=== PATIENT | male | born 1955 | race Caucasian/White ===

== ENCOUNTER 2017-07-09 18:29 | Emergency (ER) | payer OTHER, MEDICAID, SELFPAY ==
[2017-07-09 18:30] VITALS: BP 176/100; PULSE 71; RESP 18; TEMP 37; O2SAT 98; BMI 29.8
--- NOTE | 2017-07-09 18:42 | CT_ITS ---
STUDY: CT ABDOMEN AND PELVIS WITHOUT CONTRAST REASON FOR EXAM: Male, 62 years old. Left groin and testicular pain RADIATION DOSAGE (If Supplied By Facility): CTDIvol = ( 18.8 ) mGy, DLP = ( 1269.62 ) mGycm TECHNIQUE: Transaxial images were obtained from the dome of the diaphragm to the symphysis pubis without oral contrast, and without intravenous contrast. Sagittal and coronal images were reconstructed. Individualized dose optimization techniques were used for this CT. COMPARISON: June 09, 2015 FINDINGS: The visualized lung bases are unremarkable. The visualized portions of the heart are within normal limits. Mild nonspecific fatty infiltration of liver without mass or bile duct dilatation Normal gallbladder and extrahepatic biliary system. Normal spleen. Normal pancreas. Normal bilateral adrenal glands. Normal right kidney. Mild left renal pelvocaliectasis with stranding in the perinephric fat and hydroureter secondary to tiny ureteral calculus measuring 2 to 3 mm proximal to the ureterovesical junction. Normal visualized stomach. Normal small intestine. Normal colon. The appendix is visualized and appears normal. Mild atherosclerotic changes of the aorta without evidence for aneurysm. Normal inferior vena cava. Normal retroperitoneum. Incompletely distended diffusely thick-walled bladder likely of no significance. Moderate size bilateral fat-containing inguinal hernias.. Normal osseous structures. CT/Abdomen/Pelvis without Cont IMPRESSION: Mild left hydroureteronephrosis secondary to tiny calculus within the distal ureter just proximal to the ureterovesical junction. Other findings as above Electronically Signed: Reagan Arriola MD at 20:28 EDT , Service support ,
--- NOTE | 2017-07-09 18:55 | ED.DCSUM_ITS ---
- ER Visit Summary Date of Service: 07/09/17 Chief Complaint: Left lower quadrant, testicular pain History of Present Illness: The patient is a 62 M presents to the emergency department with left lower quadrant pain with radiation to his left testicle. Patient states that he woke this morning with some cramping through his abdomen. He felt the urge to move his bowels. He states he had 2 loose bowel movements. Throughout the day, he has been having waves of pain that he describes a sharp and stabbing. He gets very nauseated and sweaty with the pain. He states that this does feel slightly similar to kidney stones had in the past. The pain is been referred into his left testicle and feels like it is on fire. He cannot find a position of comfort. He states that he has had no vomiting. He denies any fever. He has no history of diverticulitis. He has had no prior abdominal surgery. Physical Examination: Vital signs reviewed General: Well-nourished, well-developed Head: Normocephalic, atraumatic Eyes: Pupils equal and reactive, extraocular muscles intact Neck, supple, no lymphadenopathy Heart: Regular rate and rhythm Respiratory: No distress, clear bilaterally Abdomen: Soft, tender in the left lower quadrant with some voluntary guarding, no peritoneal signs exam: Normal testicles. Normal lie. Normal cremasteric. No tenderness. Back: Nontender Extremities: Nontender, no edema, no cords Skin: Normal color no rash Neuro: Alert and oriented, no focal or lateralizing deficits Test Results: [] Emergency Department Course and Treatment: The patient did have some pain in his left lower quadrant. His testicles were normal. It did seem more like a diverticulitis or kidney stone. IV was established. Screening labs were obtained were unremarkable. Morphine really did not change his pain. The patient was given Toradol and Dilaudid with complete resolution. CT does demonstrate a small stone close to the bladder with mild hydro-. On reevaluation, he continues to be pain-free. At this time, I do feel the patient is safe for discharge. He will be given a short course of analgesics and antiemetics. He has seen Dr. Wahl in the past. He will follow-up with him or return to the emergency department with worsening symptoms. Family is comfortable with this plan of care. Treatment Plan: [] Disposition: Discharge Impression: 1. Left-sided urolithiasis This note was generated with [employer] media dictation software. It may contain incorrect words, spelling, and punctuation that were not noted in review of the chart prior to signing ED Disposition - Plan for ED Patient: Chief Complaint: Male Pain/Injury Instructions: ED Stone Renal W Colic Prescriptions: Hydrocodone Bitart/Apap 5-325 [[place] 5/325] 1 tab PO Q4H PRN PRN 3 Days #8 tab PRN Reason: Pain Ondansetron [Zofran Odt] 4 mg PO Q8H PRN PRN #10 tab PRN Reason: Nausea Tamsulosin HCl [Flomax] 0.4 mg PO DAILY 14 Days cap Referrals: Saleem Mac MD [STAFF PHYSICIAN] -
[2017-07-09 18:57] LABS: Absolute Lymphocyte Count 1.41 X10^3/ul (0.83-4.51); Absolute Neutrophil Count 6.7 X10^3/uL (2.0-7.7); Basophil# 0.02 X10^3/uL; Basophil% 0.2 % (0-1); Eosinophil# 0.07 X10^3/uL; Eosinophils% 0.8 % (0-5); Hematocrit 46.2 % (40-54); Hemoglobin 15.6 g/dl (13.0-16.5); Lymphocyte # 1.41 X10^3/ul (4.0); Lymphocyte % 15.8 % (19-41); Mean Corp Hgb Conc 33.8 g/gl (32-36); Mean Corpuscular Hgb 29.7 pg (27.0-32.0); Mean Platelet Vol. 10.6 fl (6.2-12.0); Monocyte# 0.68 X10^3/uL; Monocyte% 7.6 % (0-10); Neutrophil # 6.71 X10^3/uL (2.7-7.7); Neutrophil % 75.5 % (47-70); Platelet Count 213 K/mm3 (150-450); RBC Distribution Width SD 42.1 fl (35.1-43.9); Red Blood Count 5.25 M/mm3 (4.6-6.2); White Blood Count 8.9 K/mm3 (4.4-11.0)
[2017-07-09] MEDS: Ondansetron 4 MG/2 ML Vial IV (18:58)
[2017-07-09] MEDS: 0.9% Normal Saline 1,000 ML 1000 ML IV (18:58)
[2017-07-09] MEDS: Morphine 4 MG/ML Syringe IV (18:58)
[2017-07-09 19:02] LABS: Bacteria 0 SEEN /hpf (None Seen); Mucous, Urine 0 SEEN /hpf (<or=2+); Squamous Epithelial Cells - UA 0 SEEN /hpf (0-5)
[2017-07-09 19:03] LABS: POSITIVE COUNT NO; POSITIVE DIFFERENTIAL NO; POSITIVE MORPHOLOGY NO
[2017-07-09 19:16] LABS: ALB/GLOB Ratio 1.1 RATIO (0.9-2.4); AST(SGOT) 18 U/L (15-37); Alanine Aminotransfer ALT/SGPT 27 U/L (16-61); Albumin, Serum 3.7 g/dL (3.2-5.0); Alkaline Phosphatase 81 U/L (45-117); Anion Gap 13 (5-15); BUN 21 mg/dL (7-18); BUN/Creat Ratio 12.7 RATIO (10-20); Calcium,Total 8.3 mg/dL (8.5-10.1); Chloride 107 mmol/L (98-107); Creatinine, Serum 1.65 mg/dL (0.70-1.30); EST Glomerular Filtration Rate 45 mL/min (>60); Est Glom Filt Rate - Afr Amer 55 mL/min (>60); Estimated Creatinine Clearance 50.95 ml/min; Globulin 3.5 g/dL (2.2-4.2); Glucose 145 mg/dL (74-106); Potassium 3.7 mmol/L (3.5-5.1); Protein, Total 7.2 g/dL (6.4-8.2); Sodium Level 142 mmol/L (136-145)
[2017-07-09 19:22] LABS: Color, Urine Yellow (Yellow); Glucose, Dipstick Normal (Normal); Ketone-Dipstick Negative (Negative); Leukocyte Esterase-Dipstick Negative /ul (Negative); Nitrite-Dipstick Negative (Negative); Occult Blood-Urine 150 /ul (Negative); Protein-Dipstick Negative (Negative); Urine Bilirubin Dipstick Negative (Negative); Urine Clarity Clear (Clear); Urine Urobilinogen Normal (Normal)
[2017-07-09] MEDS: HYDROmorphone 1 MG/ML Syringe IV (19:26)
[2017-07-09] MEDS: Ketorolac 30 MG/ML Syringe IV (19:26)
[2017-07-09 19:30] LABS: Red Blood Cells-Urine 0-5 SEEN /hpf (0-5); White Blood Cells 0-5 SEEN /hpf (0-5)
[2017-07-09] MEDS: HYDROcodone Bitartrate/Apap 5/325 Tablet PO (21:00)
[2017-07-09] MEDS: Ondansetron ODT 4 MG Tablet PO (21:00)
[2017-07-09 21:03] VITALS: BP 148/80; PULSE 74; RESP 16; O2SAT 98
== END 2017-07-09 21:05 | disposition home or self-care (01) ==
LOC: ED 19:18
PROVIDERS: Emergency Provider Emergency Medicine; Family Provider Family Medicine; PCP Family Medicine
DX: N13.2 Hydronephrosis with renal and ureteral calculous obstruction (principal); N50.812 Left testicular pain
CPT/HCPCS: 74176; 74177; 80053; 81001; 85025; 96361; 96374; 96375; 99284; J7030; A4216; J2405

== ENCOUNTER → 2017-11-14 15:54 | Outpatient (CLI) | payer MEDICAID, SELFPAY ==
[2017-11-14 17:54] LABS: ALB/GLOB Ratio 0.9 RATIO (0.9-2.4); AST(SGOT) 19 U/L (15-37); Alanine Aminotransfer ALT/SGPT 31 U/L (16-61); Albumin, Serum 3.7 g/dL (3.2-5.0); Alkaline Phosphatase 83 U/L (45-117); Anion Gap 8 (5-15); BUN 18 mg/dL (7-18); BUN/Creat Ratio 17.8 RATIO (10-20); Calcium,Total 8.7 mg/dL (8.5-10.1); Chloride 106 mmol/L (98-107); Cholesterol 234 mg/dL (200); Creatinine, Serum 1.01 mg/dL (0.70-1.30); EST Glomerular Filtration Rate 79 mL/min (>60); Est Glom Filt Rate - Afr Amer 96 mL/min (>60); Globulin 3.9 g/dL (2.2-4.2); Glucose 98 mg/dL (74-106); High Density Lipoprotein 40 mg/dL; PSA,Total - Annual Screen 1.37 ng/mL (0.00-4.00); Potassium 3.6 mmol/L (3.5-5.1); Protein, Total 7.6 g/dL (6.4-8.2); Sodium Level 141 mmol/L (136-145); Thyroid Stim Hormone (TSH) 1.37 uIU/mL (0.358-3.74); Triglycerides 508 mg/dL
[2017-11-14 17:55] LABS: Absolute Lymphocyte Count 1.72 X10^3/ul (0.83-4.51); Absolute Neutrophil Count 5.3 X10^3/uL (2.0-7.7); Basophil# 0.02 X10^3/uL; Basophil% 0.3 % (0-1); Eosinophil# 0.14 X10^3/uL; Eosinophils% 1.8 % (0-5); Hematocrit 46.7 % (40-54); Hemoglobin 15.1 g/dl (13.0-16.5); Lymphocyte # 1.72 X10^3/ul (4.0); Lymphocyte % 22.3 % (19-41); Mean Corp Hgb Conc 32.3 g/gl (32-36); Mean Corpuscular Hgb 29.5 pg (27.0-32.0); Mean Corpuscular Volume 91.2 fL (80-94); Mean Platelet Vol. 11.3 fl (6.2-12.0); Monocyte# 0.51 X10^3/uL; Monocyte% 6.6 % (0-10); Neutrophil # 5.31 X10^3/uL (2.7-7.7); Neutrophil % 68.9 % (47-70); Platelet Count 227 K/mm3 (150-450); Red Blood Count 5.12 M/mm3 (4.6-6.2); White Blood Count 7.7 K/mm3 (4.4-11.0)
[2017-11-14 18:58] LABS: POSITIVE COUNT NO; POSITIVE DIFFERENTIAL NO; POSITIVE MORPHOLOGY NO
[2017-11-15 03:59] LABS: Rapid Plasmin Reagin (RPR) NONREACTIVE (NONREACTIVE)
[2017-11-15 11:21] LABS: Vitamin B12 503 pg/mL (211-911)
== END ==
PROVIDERS: Family Provider Family Medicine; PCP Family Medicine; Visit Provider Family Medicine
DX: M54.12 Radiculopathy, cervical region (principal); M65.4 Radial styloid tenosynovitis [de Quervain]; R41.3 Other amnesia; Q87.89 Other specified congenital malformation syndromes, not elsewhere classified; G11.9 Hereditary ataxia, unspecified; F79 Unspecified intellectual disabilities; R42 Dizziness and giddiness; N18.3 Chronic kidney disease, stage 3 (moderate); Z12.5 Encounter for screening for malignant neoplasm of prostate
CPT/HCPCS: 36415; 80053; 80061; 82607; 84153; 84443; 85025; 86592; G0103

== ENCOUNTER → 2017-12-06 10:19 | Outpatient (CLI) | payer MEDICAID, SELFPAY ==
[2017-12-06 12:42] LABS: Cholesterol 229 mg/dL (200); High Density Lipoprotein 46 mg/dL; Triglycerides 192 mg/dL; Very Low Density Lipoprotein 38 mg/dL (5-40)
== END ==
PROVIDERS: Family Provider Family Medicine; PCP Family Medicine; Visit Provider Family Medicine
DX: E78.5 Hyperlipidemia, unspecified (principal)
CPT/HCPCS: 36415; 80061

== ENCOUNTER 2018-01-02 18:30 | Outpatient (RCR) | payer MEDICAID, SELFPAY ==
--- NOTE | 2017-11-21 17:44 | HP.PTEVAL_ITS ---
Patient's Visit Information SEUN SANTOS is a 62 year old M referred to Physical Therapy by Roosevelt Henao DO with a diagnosis of radial tenosynovitis and cervical radiculopathy.. Date of Evaluation: 11/21/17 Physical Therapist: Jose Anne DPT, OC - Visit Plan Frequency: 2-3x /Week Duration: 2-4 Weeks Plan: 2-3x/week for 2-4 weeks for: 1. ICT 15 minutes(progress from 16# toward 20#) may use MH also. 2. US nonthermal to L 1st cmc joint. 3. monitor effects of c/s ret/ext HEP on neck pain and ROM and progress as tolerated. - Subjective Subjective: Has bone spurs in neck giving nerve pain in B UE to elbow L>R. Traction helped last time for 9-12 months. Wants to try this before surgery, other therapy did not help. Daily pain as he drives alot. Also jambed thumb monjths ago giving pain into L thumb joint and to elbow. Steroid shots and pills did not help. Living on pills for this. This is started in June.Also has been doing ex and the pain never goes away. Pt says doctor wanted US for thumb. Neck pain to 2-8/10 normally about 4. 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 hard to turn head after work. Has lost 30% of motion. No injections in neck. May be an operation candidate. No exercises and doesn't really have time to do those. Thumb L hurts to 4/10 and shoots up to 7/10 if using it. Hard to pick remover heavy box or squeeze thumb. Sleep is interrupted with neck pain and has been taking ibuprofen. Basic ADLs are OK but painful. Hobbies: no time. - Pain neck pain Pain Intensity (Out of 10): 4 Pain Intensity Range: 2, 8 - Objective Patient ambulates into PT and transfers I. Full UE AROM without pain increased. thumb ext L hurts adn tender to palpation medial 1st CMC joint. grinding is positive. Strength UE 4/5 withotu increased pain. sensation is WNL to gross light touch UE. reflexes 2/3 bi and tri. C/S aROM: ext 25 to start and 45 after repeated ext. B rotation to 40 degrees. very little SB, painfu to try ipsilaterally. flexion is tight. compression test is + L c/s pain.\. - VAT. repeated c/s ret NE. repeated c/s ext produces pain but NE overall except much better by 20 degrees ROM - Goals Goal 1:: 50 B rotation c/s and [address] ext without pain to drive better Goal Time Frame: 4-6 Weeks Goal 2:: Pain in neck 1/10 at worst and intermittent at 90% better. Goal Time Frame: 4-6 Weeks Goal 3:: Thumb pain 1/10 at worst and 75% improved. Goal Time Frame: 4-6 Weeks Goal 4:: Sleep withotu waking at night Goal Time Frame: 4-6 Weeks Goal 5:: Work including lifting without limitations from discomfort. Goal Time Frame: 4-6 Weeks - Rehabilitation Potential Physical Therapy Diagnosis: c/s radiculaopathy, thumb OA Rehabilitation Potential: Fair - Anticipated Interventions Patient/Client Instruction: Educate patient on: Condition For the Purpose of:: To decrease pain, To increase ROM, To improve ability of physical actions for home/community/work/leisure Therapeutic Exercise to Include: Strength training, Flexibilty training, Active ROM, Zeeshan Exercises For the Purpose of:: To decrease pain, To increase ROM, To increase tolerance to activity/condition/position, To improve ability of physical actions for home/ community/work/leisure Thermo therapy (hot pack): Yes Ultrasound (thermal/non thermal): Yes - nontheraml to L 1st CMC Intermittent cervical traction: Yes For the Purpose of:: To decrease pain, To increase ROM, To increase tolerance to activity/condition/position, To improve ability of physical actions for home/ community/work/leisure Thank you for the opportunity to evaluate your patient. For Medicare and Medicare HMO plans, please review the plan of care and approve it. It will need to be FAXED BACK to us at [phone] for Medicare purposes. Please let me know if there are questions or concerns regarding this plan of care. Physician Signature: Date:
--- NOTE | 2017-12-12 19:06 | HP.PTREVAL ---
Roosevelt Henao, DO, It has been my pleasure to treat SEUN SANTOS over the last 6 visits for radial tenosynovitis and cervical radiculopathy.. Please see the progress note below for an update on the physical therapy plan of care! Subjective: Arms felt great after last session, the best they felt. [place] good today 2/10 pain today in [place], down from 4-5/10. Wearing brace on thumb and feeling better as it is not getting knocked around as much. Much better in am. No f/u with doctor. Stilla voids slinging stuff around at work. Wakes up at night but not due to pain. Objective/Function: 45 ext c/s, L rot 45 and 50 R rot. IMPROVING OVERALL AND STILL APPROP. Pt does well with US and improved upon departure. fair prognosis. Plan Plan: CONTINUE 2X/WEEK FOR 2-3 MORE WEEKS... pLEASE US mh AND us TO b iut, stm TO SAME AND START PULLING tb STRENGTH PROGRESSING TO HEP. D/C ICT. Goals Goal 1:: 50 B rotation c/s and [address] ext [address] pain to drive better Goal Time Frame: 4-6 Weeks Goal Progress: Progressing Goal 2:: Pain in neck 1/10 at worst and intermittent at 90% better. Goal Time Frame: 4-6 Weeks Goal Progress: Progressing Goal 3:: Thumb pain 1/10 at worst and 75% improved. Goal Time Frame: 4-6 Weeks Goal Progress: ?? Goal 4:: Sleep withotu waking at night Goal Time Frame: 4-6 Weeks Goal Progress: Not up with pain. Goal 5:: Work including lifting without limitations from discomfort. Goal Time Frame: 4-6 Weeks Goal Progress: Progressing Anticipated Interventions Patient/Client Instruction: Educate patient on: Condition For the Purpose of:: To decrease pain, To increase ROM, To improve ability of physical actions for home/community/work/leisure Therapeutic Exercise to Include: Strength training, Flexibilty training, Active ROM, Zeeshan Exercises For the Purpose of:: To decrease pain, To increase ROM, To increase tolerance to activity/condition/position, To improve ability of physical actions for home/community/work/leisure Thermo therapy (hot pack): Yes Ultrasound (thermal/non thermal): Yes - nontheraml to L 1st CMC Intermittent cervical traction: Yes For the Purpose of:: To decrease pain, To increase ROM, To increase tolerance to activity/condition/position, To improve ability of physical actions for home/community/work/leisure Please do not hesitate to contact me at [phone] by phone or if you have questions or concerns regarding this new plan of care! Sincerely, Jose Anne, DPT, OC
--- NOTE | 2018-01-02 19:04 | HP.PTDCSUM ---
HP - PT D/C Summary It has been my pleasure to treat SEUN SANTOS under orders from Roosevelt Henao DO, for the diagnosis of radial tenosynovitis and cervical radiculopathy. for a total of 10 visit(s). Discharge Date: 01/02/18 Please see the following information for a summary of their discharge status. - Subjective Subjective: Not sure if we are getting anywhere, US helps but not permanently. Back to pain a couple days later. Been doing HEP initial 3-4x/day. Doing isometrics for c/s and rotation and ret ROM. They hurt to do them. Hard to get into PT with work schedule but might have more latitude next week. - Pain neck pain Pain Intensity (Out of 10): 6 LEFT THUMB Pain Intensity (Out of 10): 7 - Overall Improvement % Improvement: 20 - Objective Objective/Function: 45 L rot. 55 R rot. 45 ext. not painful, not improving motion. Thumb still hurts bad and is not improving, worse with thumb extension btu decent strength4/5. Neck isometric strength is 4/5 withotu increased pain. UE AROM shoulders and elbows WFL and 4+/5 - Goals Goal 1:: 50 B rotation c/s and [address] ext [address] pain to drive better Goal Progress: Not Progressing Goal 2:: Pain in neck 1/10 at worst and intermittent at 90% better. Goal Progress: Not Progressing Goal 3:: Thumb pain 1/10 at worst and 75% improved. Goal Progress: Not Progressing Goal 4:: Sleep withotu waking at night Goal Progress: Progressing Goal 5:: Work including lifting without limitations from discomfort. Goal Progress: Not Progressing - Plan Plan: Pt to contact doctor for appt due to lack of progress. - D/C Information Discharge Comments: Lack of acceptable improvement necessitates patient calling and scheduling with doctor for next medical step. If there are questions or concerns regarding this patient's physical therapy, please feel free to call me at [phone]. Thank you for the referral of this patient. Sincerely, Jose Anne, DPT, OC
== END 2018-01-02 19:00 | disposition home or self-care (01) ==
LOC: PT 18:30
PROVIDERS: Family Provider Family Medicine; PCP Family Medicine; Visit Provider Family Medicine
DX: M54.12 Radiculopathy, cervical region (principal); M65.4 Radial styloid tenosynovitis [de Quervain]
CPT/HCPCS: 97012; 97035; 97110; 97140; 97162; 97530

== ENCOUNTER → 2018-01-22 10:11 | Outpatient (CLI) | payer MEDICAID, SELFPAY ==
[2018-01-22 12:14] LABS: Erythrocyte Sedimentation Rate 7 mm/hr (0-20)
[2018-01-22 13:08] LABS: CRP < 2.90 mg/L (0.0-3.0); Rheumatoid Factor < 10.0 IU/mL (<15)
[2018-01-24 12:33] LABS: CCP IgG Antibodies 28 units (0-19)
== END ==
PROVIDERS: Family Provider Family Medicine; PCP Family Medicine; Visit Provider Family Medicine
DX: M25.50 Pain in unspecified joint (principal); M15.9 Polyosteoarthritis, unspecified
CPT/HCPCS: 36415; 85652; 86140; 86200; 86431

== ENCOUNTER 2018-08-14 21:43 | Emergency (ER) | payer MEDICAID, SELFPAY ==
[2018-08-14 21:44] VITALS: BP 158/85; PULSE 64; RESP 18; TEMP 36.1; O2SAT 96; BMI 31.6
--- NOTE | 2018-08-14 22:36 | ED.VISSUMM ---
- ER Visit Summary Date of Service: 08/14/18 Chief Complaint: Headache History of Present Illness: The patient is a 63 M who tells me he is got a headache. He states he had 2 root canals done this week. He went back in today and they drilled into his tooth and he had purulent material come out. He was placed on Augmentin but no pain medications. He has been trying Tylenol at home without any relief. He does not usually get headaches. Physical Examination: Vital signs are reviewed. Head exam reveals tenderness on the right mandible up into the right preauricular area. He has no temporal artery tenderness. Mouth exam reveals no purulent drainage at this time. His heart is regular. Lungs are clear. Abdomen soft. Neurologic exam normal Test Results: None performed Emergency Department Course and Treatment: Patient presents after a dental procedure. This is causing a headache. I do not feel he requires any imaging. I will give him a shot of Toradol here since he is driving. I will give him Stuart for pain at home. He will continue his Augmentin as I do not think this is causing his issues. He will follow-up with his PCP Treatment Plan: [] Disposition: Discharge Impression: Odontalgia, headache This note was generated with [employer] dictation software. It may contain incorrect words, spelling, and punctuation that were not noted in review of the chart prior to signing ED Disposition - Plan for ED Patient: Referrals: Roosevelt Henao DO [Primary Care Provider] -
--- NOTE | 2018-08-14 22:39 | ED.DEP ---
ED Disposition - Plan for ED Patient: Disposition: Home or Assisted Living Instructions: ED Cephalgia Unspecified Prescriptions: Hydrocodone Bitart/Apap 5-325 [[place] 5MG-325MG] 1 tab PO Q6H PRN PRN 3 Days #10 tab PRN Reason: Pain Referrals: Roosevelt Henao DO [Primary Care Provider] -
[2018-08-14] MEDS: Ketorolac 60 MG/2 ML Vial IM (22:42)
[2018-08-14 23:02] VITALS: BP 142/61; PULSE 64; RESP 18; O2SAT 99
== END 2018-08-14 23:03 | disposition home or self-care (01) ==
PROVIDERS: Emergency Provider Emergency Medicine; Family Provider Family Medicine; PCP Family Medicine
DX: K08.89 Other specified disorders of teeth and supporting structures (principal); R51 Headache; M19.90 Unspecified osteoarthritis, unspecified site; Z79.899 Other long term (current) drug therapy
CPT/HCPCS: 96372; 99282

== ENCOUNTER → 2018-10-06 16:02 | Outpatient (CLI) | payer MEDICAID, SELFPAY ==
--- NOTE | 2018-10-06 16:06 | RAD_ITS ---
STUDY: X-RAY - LEFT HAND, ATTENTION FIRST FINGER REASON FOR EXAM: Male, 63 years old. Weakness TECHNIQUE: 3 view(s) of the finger were obtained. COMPARISON: None. FINDINGS: Normal metacarpal head. There is mild degenerative arthrosis of the metacarpophalangeal joint. Normal proximal phalanx. Normal distal phalanx. There is mild degenerative arthrosis of the interphalangeal joint. There is no demonstrated fracture. RAD/Finger(s) Min 2 Views IMPRESSION: No acute fracture or dislocation. Mild degenerative changes. Electronically Signed: Dimitrios Leblanc MD at 23:03 EDT , Service support ,
--- NOTE | 2018-10-06 16:06 | RAD_ITS ---
STUDY: X-RAY - ABDOMEN/PELVIS REASON FOR EXAM: Male, 63 years old. Left lower quadrant pain TECHNIQUE: Single AP view of the abdomen / pelvis. COMPARISON: None. FINDINGS: Normal visualized lung bases. There is an unremarkable bowel gas pattern. There is no demonstrated free abdominal air. The visualized liver, spleen and kidneys are grossly normal in size and morphology. Normal soft tissue structures. Normal visualized osseous structures. RAD/Abdomen Single View IMPRESSION: Normal x-ray examination of the abdomen and pelvis. Electronically Signed: Dimitrios Leblanc MD at 23:01 EDT , Service support ,
[2018-10-06 18:04] LABS: CRP < 2.90 mg/L (0.0-3.0); Rheumatoid Factor < 10.0 IU/mL (<15)
[2018-10-06 18:18] LABS: Absolute Lymphocyte Count 1.67 X10^3/ul (0.83-4.51); Absolute Neutrophil Count 4.5 X10^3/uL (2.0-7.7); Basophil# 0.04 X10^3/uL; Basophil% 0.6 % (0-1); Eosinophil# 0.14 X10^3/uL; Hematocrit 48.4 % (40-54); Hemoglobin 16.2 g/dl (13.0-16.5); Lymphocyte # 1.67 X10^3/ul (4.0); Lymphocyte % 24.5 % (19-41); Mean Corp Hgb Conc 33.5 g/gl (32-36); Mean Corpuscular Hgb 29.2 pg (27.0-32.0); Mean Corpuscular Volume 87.4 fL (80-94); Mean Platelet Vol. 11.3 fl (6.2-12.0); Monocyte# 0.49 X10^3/uL; Monocyte% 7.2 % (0-10); Neutrophil # 4.47 X10^3/uL (2.7-7.7); Neutrophil % 65.4 % (47-70); Platelet Count 244 K/mm3 (150-450); RBC Distribution Width CV 12.7 % (11.6-14.6); RBC Distribution Width SD 40.6 fl (35.1-43.9); Red Blood Count 5.54 M/mm3 (4.6-6.2); White Blood Count 6.8 K/mm3 (4.4-11.0)
[2018-10-06 18:29] LABS: POSITIVE COUNT NO; POSITIVE DIFFERENTIAL NO; POSITIVE MORPHOLOGY NO
[2018-10-06 18:35] LABS: Erythrocyte Sedimentation Rate 5 mm/hr (0-20)
[2018-10-08 14:39] LABS: ANTINUCLEAR ANTIBODIES DIRECT Negative (Negative)
[2018-10-09 11:49] LABS: CCP IgG Antibodies 17 units (0-19)
== END ==
PROVIDERS: Family Provider Family Medicine; PCP Family Medicine; Referring Provider Family Medicine; Visit Provider Family Medicine
DX: M25.50 Pain in unspecified joint (principal); R53.83 Other fatigue; M79.645 Pain in left finger(s); R10.9 Unspecified abdominal pain
CPT/HCPCS: 36415; 73140; 74018; 85025; 85652; 86038; 86140; 86200; 86225; 86235; 86431

== ENCOUNTER → 2019-02-12 05:58 | Outpatient (CLI) | payer MEDICAID, SELFPAY ==
--- NOTE | 2019-02-12 15:56 | NEURO ---
NCS and/or EMG Patient Report HPI: Patient is a 63-year-old male who presented with the numbness and tingling in both feet for 6 months. Patient denies back injury. Patient has tripped due to lack of feeling in his toes. He denies being diabetic and does not drink alcohol. Patient feels that his feet are burning when he goes to bed. Physical Exam: Mild bilateral ankle tenderness. Decreased sensation to light touch in the distal foot and ankle area on both sides. Findings: 1. Right and left medial plantar nerves responses are absent. 2. There is slowing of right and left peroneal nerve conduction velocity. 3. There is slowing of the left tibial nerve conduction velocity with decreased amplitude of proximal CMAP of left tibial motor nerve resposne. Impression: 1. 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 Recommendation: 1. clinical correlation and appropriate work-up is recommended.
== END ==
PROVIDERS: Family Provider Family Medicine; PCP Family Medicine; Referring Provider Family Medicine; Visit Provider Family Medicine
DX: G62.9 Polyneuropathy, unspecified (principal)
CPT/HCPCS: 95886; 95912

== ENCOUNTER → 2019-03-31 09:35 | Outpatient (CLI) | payer MEDICAID, SELFPAY ==
[2019-04-01 21:05] LABS: HCV Quant. RNA PCR <15 IU/mL (.)
== END ==
PROVIDERS: Family Provider Family Medicine; PCP Family Medicine; Visit Provider Family Medicine
DX: R76.8 Other specified abnormal immunological findings in serum (principal)
CPT/HCPCS: 36415; 87522

== ENCOUNTER → 2019-04-30 08:58 | Outpatient (CLI) | payer MEDICAID, SELFPAY ==
--- NOTE | 2019-04-30 09:05 | MRI_ITS ---
STUDY: MRI LUMBAR SPINE WITH AND WITHOUT CONTRAST REASON FOR EXAM: Male, 63 years old. myelitis, numbness and tingling from feet to calf bilat TECHNIQUE: Standardized fat and water weighted pulse sequences were obtained in the sagittal and axial planes. IV Dotarem 20ml was administered for the contrast portion of the examination. COMPARISON: None FINDINGS: Normal lumbar lordosis. There is no substantial scoliosis. Normal conus medullaris that terminates at the T12 L1-2: Normal endplates. Normal disc height, hydration and morphology. Normal bilateral facet joints. Normal central canal and bilateral lateral recesses. Normal bilateral intervertebral neural foramina. L2-3: There is minimal disc space narrowing and endplate spondylosis. There is no significant disc herniation, central canal or foraminal stenosis. L3-4: There is mild disc space narrowing and endplates spondylosis. Mild disc bulge and facet arthropathy without significant central canal stenosis. Mild right and mild left foraminal stenosis. L4-5: There is minimal disc space narrowing and endplate spondylosis. There is no significant disc herniation, central canal or foraminal stenosis. Mild facet arthropathy L5-S1: There is minimal disc space narrowing and endplate spondylosis. Moderate facet arthropathy with minimal anterolisthesis without significant central canal stenosis. There is mild right and mild left foraminal stenosis. There is spondylolysis. There is minimal grade 1 anterolisthesis. Normal visualized sacral ala. MRI/Spine Lumbar W/WO Contrast IMPRESSION: L5/S1: Spondylolysis with minimal anterolisthesis. Electronically Signed: Janel Bedolla MD at 10:04 EST Tel , Service support ,
--- NOTE | 2019-04-30 09:05 | MRI_ITS ---
We are attempting to reach an attending provider to discuss findings. An addendum with communication details will be sent when the communication is complete. STUDY: MRI THORACIC SPINE WITH AND WITHOUT CONTRAST REASON FOR EXAM: Male, 63 years old. myelitis, N/T from bilat feet up to calf x 6months TECHNIQUE: IV cc was administered for the contrast portion of the examination. COMPARISON: None. FINDINGS: Normal kyphosis of the thoracic spine. There is no substantial scoliosis. T1-2, T2-3, T3-4, T4-5, T5-6, T6-7, T7-8, T8-9, T9-10, T10-11, T11-12: There is mild diffuse disc space narrowing and endplate spondylosis T9/T12, there is small left paracentral protrusion with moderate left lateral recess narrowing. T2/T3, there is dorsal mass effect and anterior displacement of the spinal cord (axial image #42 is series 7 with minimal increased cord signal. There is no abnormal enhancement. The soft tissue structures are unremarkable. There is no enhancing abnormality. 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 Leading differential considerations include spinal cord herniation and arachnoid cyst. T9/T12: Small left paracentral protrusion with moderate left lateral recess narrowing. Electronically Signed: Janel Bedolla MD at 11:24 EST Tel , Service support ,
[2019-04-30 09:26] LABS: EGFR FINGERSTICK > 60.0000 mL/min (>60)
== END ==
PROVIDERS: PCP Family Medicine; Referring Provider Psychiatry & Neurology Neurology; Visit Provider Psychiatry & Neurology Neurology
DX: G04.91 Myelitis, unspecified (principal)
CPT/HCPCS: 72157; 72158; A9575

== ENCOUNTER 2019-05-23 18:34 | Emergency (ER) | payer MEDICAID, SELFPAY ==
[2019-05-23 18:34] VITALS: BP 163/95; PULSE 78; RESP 18; TEMP 36.1; O2SAT 96; BMI 32.1
--- NOTE | 2019-05-23 19:06 | ED.VISSUMM ---
- ER Visit Summary Date of Service: 05/23/19 Chief Complaint: Rash History of Present Illness: The patient is a [address] Henao. He reports that he has a rash on the left side of his face that began today. However, he has pain in the ear that began 5 days ago. States that sharp pain is 10-10 at worst and 7-10 currently. Is worsened by touching it or showering. Is relieved by nothing. Reports he has a headache that is 9-10 severity. Does complain of arthralgias and myalgias. He denies a fever. He denies any eye pain or change in his vision. He denies any ear pain. Physical Examination: Vitals: Stable. Afebrile. General: Well-nourished and well-developed. Head: Normocephalic atraumatic. Neck: Supple, no lymphadenopathy. No JVD. Nontender. Cardiovascular: Regular rate and rhythm. No murmurs. Respiratory: No respiratory distress. Clear to auscultation bilaterally. Abdominal: Soft, nontender, nondistended, normal bowel sounds. No guarding, rebound, or peritoneal signs. Back: Nontender. Extremities: Nontender, no edema. Skin: Vesicular lesions in a cranial nerve V branch 3 distribution on the left. There is no Thornton sign. There is no conjunctival injection. There are are no lesions in his external auditory canal and his TMs are normal. Neurologic: Alert and oriented ?3. Cranial nerves II through XII are intact. Normal strength and sensation. Psych: Normal affect. Emergency Department Course and Treatment: Patient had an IV placed. Is given morphine and Toradol IV. He is given acyclovir p.o. He is resting comfortably. Treatment Plan: Patient be discharged on prednisone, acyclovir, and Percocet. Given a prescription for lidocaine jelly. Instructed to follow-up his primary care physician 1 week if not improving. We did discuss the risk of postherpetic neuralgia. He was instructed to watch for any pain or redness in his eye.Return to the emergency department for any worsening symptoms. Disposition: To home in improved and stable condition. Impression: 1. Herpes zoster left face. This note was generated with [employer] dictation software. It may contain incorrect words, spelling, and punctuation that were not noted in review of the chart prior to signing ED Disposition - Plan for ED Patient: Disposition: Home or Assisted Living Instructions: Shingles (Herpes Zoster) Prescriptions: Oxycodone HCl/Acetaminophen [Percocet 5/325] 1 tab PO Q6H PRN PRN 5 Days #20 tab PRN Reason: Pain Score 6-10/10 Prescription Printed Prednisone 10 mg PO DAILY #63 tab Prescription Printed Valacyclovir HCl [Valacyclovir] 1,000 mg PO TID #21 tab Prescription Printed Lidocaine 2% Jelly [Xylocaine 2% Jelly] 1 applic TOPICAL Q6H PRN PRN #1 tube PRN Reason: Itching Prescription Printed Referrals: Roosevelt Henao DO [Primary Care Provider] - 1 Week if not improving
[2019-05-23] MEDS: Ketorolac 30 MG/ML Syringe IV (19:24)
[2019-05-23] MEDS: Morphine 4 MG/ML Syringe IV (19:25)
[2019-05-23] MEDS: predniSONE 20 MG Tablet 60 MG PO (19:26)
[2019-05-23] MEDS: Acyclovir 800 MG Tablet PO (19:26)
[2019-05-23] MEDS: 0.9% Normal Saline 1,000 ML 999 ML IV (19:27)
[2019-05-23 20:11] VITALS: BP 125/80; PULSE 88; RESP 16; O2SAT 99
== END 2019-05-23 20:40 | disposition home or self-care (01) ==
LOC: ED 19:06
PROVIDERS: Emergency Provider Emergency Medicine; PCP Family Medicine
DX: B02.9 Zoster without complications (principal); Z79.899 Other long term (current) drug therapy
CPT/HCPCS: 96361; 96374; 96375; 99284; J7030; A4216

== ENCOUNTER 2019-06-01 17:53 | Emergency (ER) | payer MEDICAID, SELFPAY ==
[2019-06-01 17:54] VITALS: BP 161/92; PULSE 76; RESP 18; TEMP 36.1; O2SAT 96; BMI 32.1
--- NOTE | 2019-06-01 18:05 | EKG12_ITS ---
Test Reason : Blood Pressure : / mmHG Vent. Rate : 075 BPM Atrial Rate : 075 BPM P-R Int : 162 ms QRS Dur : 090 ms QT Int : 384 ms P-R-T Axes : 033 -39 045 degrees QTc Int : 428 ms Normal sinus rhythm Left axis deviation Poor R- wave progression Abnormal ECG Confirmed by JAMILA LEW, FLORENCIO ([id number]), content editor NAWAF DON ([id number]) on 06/02/2019 1:44:53 PM Referred By: LAWANDA Confirmed By:FLORENCIO MARINO MD
--- NOTE | 2019-06-01 18:06 | CT_ITS ---
STUDY: CTA HEAD AND NECK WITH CONTRAST REASON FOR EXAM: Male, 63 years old. SLURRED SPEECH, DOESN''T FEEL RIGHT, NEURO DEFICITS RADIATION DOSAGE (If Supplied By Facility): CTDIvol = ( 28.37 ) mGy, DLP = ( 1591.99 ) mGycm TECHNIQUE: CT angiography was performed with a multi-detector CT scanner. Data acquisition was obtained from the skull base through the vertex following intravenous administration of 100 CC ISOVUE 370. MIP images were reconstructed from the axial data set. Post-processing of the angiographic images was performed, with multiplanar reformation and 3D reconstruction. Individualized dose optimization techniques were used for this CT. COMPARISON: No relevant priors. FINDINGS: CT head without contrast: No intracranial mass, hemorrhage, or acute territorial infarct. Normal bilateral petrous carotid arteries. Normal right cavernous carotid artery with a normal supraclinoid bifurcation. Normal left cavernous carotid artery with a normal supraclinoid bifurcation. Normal right A1 segments of the anterior cerebral artery. Normal left A1 segments of the anterior cerebral artery. Normal intact anterior communicating artery (ACOM). Normal bilateral A2 segments of the anterior cerebral arteries. Normal right M1 and M2 segments of the middle cerebral arteries, with a normal M1 bifurcation. Normal left M1 and M2 segments of the middle cerebral arteries, with a normal M1 bifurcation. Posterior communicating arteries are nonvisualized. Normal bilateral vertebral arteries. Normal basilar artery with a normal basilar bifurcation. The visualized bilateral superior cerebellar (SCA) arteries are normal. Normal bilateral P1, P2 and visualized P3 segments of the posterior cerebral arteries. There is no demonstrated aneurysm of the [place]. There is no demonstrated abnormality of the visualized brain. AORTIC ARCH: Normal visualized aortic arch. Normal origins of the brachiocephalic, left common carotid, and left subclavian arteries. RIGHT CAROTID ARTERIES: Normal right common carotid artery (CCA). Normal right common carotid bulb. Normal origin of the right internal carotid (ICA) artery without stenosis. Normal visualized cervical portion of the right internal carotid artery. Normal origin of the right external carotid artery (ECA). LEFT CAROTID ARTERIES: Normal left common carotid artery (CCA). Normal left common carotid bulb. Normal origin of the left internal carotid (ICA) artery without stenosis. Normal visualized cervical portion of the left internal carotid artery. Normal origin of the left external carotid artery (ECA). VERTEBRAL ARTERIES: Normal bilateral vertebral arteries. CT/CTA Head AND Neck W/ Contrast IMPRESSION: Normal CTA Head and neck with contrast. Electronically Signed: Moni English MD at 20:02 EDT Tel , Service support ,
--- NOTE | 2019-06-01 18:07 | ED.VIS.GEN ---
History of Present Illness Chief Complaint: Neuro S/Sx Informant: Patient Onset: Today Context: Gradual Onset Timing: Continuous Current Severity: Moderate Maximum Severity: Moderate Narrative: The patient is a 63-year-old male with medical history significant for anxiety and recent diagnosis of shingles that presents to the emergency department with complaints of slurred speech and diffuse tingling. The patient just returned to work today. He was diagnosed with shingles a few days ago. He has been on valacyclovir, prednisone, and analgesics. He states when he was at work, he just does not feel himself. He states he felt like he was having trouble getting his words out. He states it lasted most of the day. He states now, he felt back to normal but will still have some difficulty with the speech. He states that he has no trouble with fluency of speech, just feels like his tongue is thick. He states that his rash has been markedly improved. When he was at work, he also had numbness of all his extremities but was not sure if that was because of his anxiety. He has no history of hypertension, hyperlipidemia, or diabetes. He is currently undergoing neurologic work-up for bilateral lower extremity numbness. Prior similar symptoms: No Recent Illness/Hospitalization: Yes Past Medical History - Allergies and Home Meds Allergies/Adverse Reactions: Allergies No Known Allergies Allergy (Verified 06/01/19 17:57) Primary Care Physician: Roosevelt Henao DO [Primary Care Provider] - Prior records reviewed: Yes Past Medical History: - - Anxiety disorder Surgical History: - Smoking Status: Never smoker - Family History Maternal Family History: Reports: Unknown, No pertinent history Review of Systems General: Denies: Chills, Fever, Sweats Eyes: Denies: Visual changes - bilaterally, Diplopia ENT: Denies: Rhinorrhea, Sore throat Cardiovascular: Denies: Chest pain, Palpitations Respiratory: Denies: Dyspnea, Cough, Dyspnea on exertion Gastrointestinal: Denies: Abdominal pain, Nausea, Vomiting, Diarrhea, Melena, Hematochezia Genitourinary: Denies: Dysuria, Hematuria, Frequency Musculoskeletal: Denies: Back pain, Extremity Pain Skin: Denies: Rash, Wounds Neurological: Reports: Parasthesia. Denies: Headache, Weakness, Numbness Physical Exam Vital Signs/Narrative: Vital Signs Temp Pulse Resp BP Pulse Ox 06/01/19 17:54 96.9 F L 76 18 161/92 H 96 Inital Vital Signs reviewed: Yes General: Well nourished, Well developed, No Acute Distress Head: Normocephalic, Atraumatic, - - Patient has well-healing vesicles over the left face. No cellulitis Eyes: Perrl, EOMI ENT: Moist mucous membranes, No rhinorrhea Neck: Supple, Nontender Cardiovascular: Regular rate, Regular rhythm, No murmurs Respiratory: No distress, CTA bilaterally, Chest nontender Abdomen: Soft, Nontender, Nondistended, Normal bowel sounds Back: Nontender, Normal Inspection Extremities: Nontender, No edema Skin: Normal color, No rash Neurological: Alert, Oriented x3, Cranial nerves II-XII grossly intact, Normal Strength, Normal Sensation Psychological: Normal affect, Normal Mood Diagnostic/Tx/Re-eval Clinical Impression(s) from Imaging Studies Head/Neck CTA 06/01/19 18:06 IMPRESSION: Normal CTA Head and neck with contrast. Electronically Signed: Moni Enlgish MD at 20:02 EDT Tel , Service support , Chest X-Ray 06/01/19 18:17 IMPRESSION: Normal x-ray examination of the chest. Electronically Signed: Moni English MD at 19:38 EDT Tel , Service support , - Medical Decision Making Abnormal Lab Results 06/01/19 06/01/19 06/01/19 18:20 18:20 18:20 WBC 15.0 H RBC 5.56 Hgb 16.4 Hct 49.6 MCV 89.2 MCH 29.5 MCHC 33.1 RDW Std Deviation 42.7 RDW Coeff of Pascale 13.1 Plt Count 264 MPV 10.1 Immature Gran % (Auto) 2.200 H Neut % (Auto) 85.9 H Lymph % (Auto) 6.6 L [place] % (Auto) 5.0 Eos % (Auto) 0.0 Baso % (Auto) 0.3 Absolute Neuts (auto) 12.9 H Absolute Lymphs (auto) 0.99 Nucleated RBC % 0 PT 12.7 INR 1.0 APTT 22.6 L Sodium 141 Potassium 3.9 Chloride 109 H Carbon Dioxide 24.0 Anion Gap 8 BUN 26 H Creatinine 1.06 Estim Creat Clear Calc 78.29 Est GFR (MDRD) Af Amer 91 Est GFR (MDRD) Non-Af 75 BUN/Creatinine Ratio 24.5 H Glucose 136 H Calcium 8.7 Troponin I < 0.015 POC Glucose 06/01/19 19:07 WBC RBC Hgb Hct MCV MCH MCHC RDW Std Deviation RDW Coeff of Pascale Plt Count MPV Immature Gran % (Auto) Neut % (Auto) Lymph % (Auto) [place] % (Auto) Eos % (Auto) Baso % (Auto) Absolute Neuts (auto) Absolute Lymphs (auto) Nucleated RBC % PT INR APTT Sodium Potassium Chloride Carbon Dioxide Anion Gap BUN Creatinine Estim Creat Clear Calc Est GFR (MDRD) Af Amer Est GFR (MDRD) Non-Af BUN/Creatinine Ratio Glucose Calcium Troponin I POC Glucose 109 The patient presents with neck speech and paresthesias of his upper extremities. His NIH on arrival is 0. He really has no risk factor for stroke. He states that he felt very anxious going back to work. However, given his recent illness, I did feel that metabolic work-up was appropriate. EKG was obtained which showed sinus rhythm without acute ischemia. Screening labs were obtained were unremarkable. Patient underwent CTA which shows no evidence of dissection, acute cutoff, or vascular disease. At this time, given his lack of symptoms and the fact that were nonfocal, I do not suspect acute stroke to be the cause of his symptoms. The patient has had no progression of symptoms. He has had no further difficulty with speech. At this point, I do feel that he safe for outpatient follow-up and he is scheduled to get MRI within 2 days. I feel that this is reasonable. Impression 1. Reported dysarthria-resolved . Paresthesias ED Disposition - Plan for ED Patient: Instructions: Paraesthesias Referrals: Roosevelt Henao DO [Primary Care Provider] -
--- NOTE | 2019-06-01 18:17 | RAD_ITS ---
STUDY: X-RAY CHEST REASON FOR EXAM: Male, 63 years old. PT REPORTS SLURRED SPEECH SINCE 0800 WITH HAND TREMORS. TECHNIQUE: Portable chest. COMPARISON: 03/05/2014. FINDINGS: The lungs are clear and expanded. There is no demonstrated pleural abnormality. Normal size heart. Normal mediastinum and say. Normal visualized pulmonary arteries. Normal visualized aortic arch and descending thoracic aorta. Normal visualized thoracic spine. Normal visualized ribs, clavicles, and shoulders. There is no demonstrated abnormality of the visualized soft tissue structures of the upper abdomen. RAD/Chest 1 View IMPRESSION: Normal x-ray examination of the chest. Electronically Signed: Moni English MD at 19:38 EDT Tel , Service support ,
[2019-06-01 18:25] VITALS: BP 191/107; PULSE 74; RESP 17; O2SAT 97
[2019-06-01 18:26] LABS: Absolute Lymphocyte Count 0.99 X10^3/uL (0.83-4.51); Absolute Neutrophil Count 12.9 X10^3/uL (2.0-7.7); Basophil# 0.04 X10^3/uL; Basophil% 0.3 % (0-1); Hematocrit 49.6 % (40-54); Hemoglobin 16.4 g/dL (13.0-16.5); Lymphocyte # 0.99 X10^3/ul (4.0); Lymphocyte % 6.6 % (19-41); Mean Corp Hgb Conc 33.1 g/dL (32-36); Mean Corpuscular Hgb 29.5 pg (27.0-32.0); Mean Corpuscular Volume 89.2 fL (80-94); Mean Platelet Vol. 10.1 fl (6.2-12.0); Monocyte# 0.75 X10^3/uL; NRBC Flagged by Analyzer 0 % (0-5); Neutrophil # 12.88 X10^3/uL (2.7-7.7); Neutrophil % 85.9 % (47-70); Platelet Count 264 K/mm3 (150-450); RBC Distribution Width CV 13.1 % (11.6-14.6); RBC Distribution Width SD 42.7 fl (35.1-43.9); Red Blood Count 5.56 M/mm3 (4.6-6.2)
[2019-06-01] MEDS: 0.9% Normal Saline 1,000 ML 100 ML IV (18:27)
[2019-06-01 18:34] LABS: Partial Thromboplast Time 22.6 Seconds (24.1-36.2); Prothrombin Time (Protime)PT. 12.7 SECONDS (11.7-14.9)
[2019-06-01 18:43] LABS: Anion Gap 8 (5-15); BUN 26 mg/dL (7-18); BUN/Creat Ratio 24.5 RATIO (10-20); Calcium,Total 8.7 mg/dL (8.5-10.1); Chloride 109 mmol/L (98-107); Creatinine, Serum 1.06 mg/dL (0.70-1.30); EST Glomerular Filtration Rate 75 mL/min (>60); Est Glom Filt Rate - Afr Amer 91 mL/min (>60); Estimated Creatinine Clearance 78.29 ml/min; Glucose 136 mg/dL (74-106); Potassium 3.9 mmol/L (3.5-5.1); Sodium Level 141 mmol/L (136-145)
[2019-06-01 19:01] VITALS: BP 187/102; PULSE 77; PULSE 79; RESP 16; RESP 18; O2SAT 98
[2019-06-01 19:18] VITALS: BMI 32.1
[2019-06-01 19:30] LABS: Bedside Glucose 109 mg/dL (70-110)
[2019-06-01 20:20] VITALS: BP 169/97; PULSE 69; RESP 12; O2SAT 95
== END 2019-06-01 20:23 | disposition home or self-care (01) ==
LOC: ED 18:27
PROVIDERS: Emergency Provider Emergency Medicine; PCP Family Medicine
DX: R47.1 Dysarthria and anarthria (principal); R47.81 Slurred speech; R20.2 Paresthesia of skin; F41.9 Anxiety disorder, unspecified; Z79.899 Other long term (current) drug therapy
CPT/HCPCS: 70496; 70498; 71045; 80048; 82962; 84484; 85025; 85610; 85730; 93005; 96360; 96361; 99284; J7030; Q9967; A4216

== ENCOUNTER → 2019-06-04 06:31 | Outpatient (CLI) | payer MEDICAID, SELFPAY ==
[2019-06-01 19:18] VITALS: BMI 32.1
--- NOTE | 2019-06-04 06:37 | MRI_ITS ---
STUDY: MRI CERVICAL SPINE WITH AND WITHOUT CONTRAST REASON FOR EXAM: Male, 63 years old. arachnoid cyst, F/U TO MRI THORACIC SPINE, N/T LEGS TECHNIQUE: Standardized fat and water weighted pulse sequences were obtained in the sagittal and axial following administration of IV Dotarem 20ml. COMPARISON: X-ray 05/09/2016, MRI of the thoracic spine to FINDINGS: Normal foramen magnum and brainstem-cervical cord junction. Normal craniovertebral junction. Normal anterior atlantoaxial articulation. Normal odontoid process. Normal cervical lordosis. Normal vertebral bodies and posterior osseous elements. C2-3: Normal endplates. Normal disc height, signal and morphology. Normal central canal and intervertebral neural foramina. C3-4: Normal endplates. Normal disc height, signal and morphology. Normal central canal and intervertebral neural foramina. C4-5: Mild bilobed disc osteophyte complex and bilateral carotid joint hypertrophy produces mild spinal stenosis and mild bilateral neural foraminal stenosis. C5-6: Moderate sized left paracentral and preforaminal disc osteophyte complex and left uncovertebral hypertrophy and mild left facet hypertrophy produces mild spinal stenosis with near abutment of the left hemicord and mild left neural foraminal stenosis. C6-7: Moderate broad disc osteophyte complex asymmetric to the right with some right uncovertebral hypertrophy produces mild spinal stenosis with near abutment of the right hemicord and mild right neural foraminal stenosis. C7-T1: Normal endplates. Normal disc height, signal and morphology. Normal central canal and intervertebral neural foramina. Normal cervical cord. Normal visualized soft tissue structures. MRI/Spine Cervical W/WO Contrast IMPRESSION: Multilevel degenerative changes, as described above. Electronically Signed: Jamal Kilpatrick MD at 8:46 EDT Tel , Service support ,
--- NOTE | 2019-06-04 06:38 | MRI_ITS ---
STUDY: MRI BRAIN WITH AND WITHOUT CONTRAST REASON FOR EXAM: Male, 63 years old. arachnoid cyst, f/u to mri thoracic, n/t legs, slurred speech, hx recent diagnosis of shingles TECHNIQUE: Standardized multiplanar fat and water weighted pulse sequences were obtained. IV Dotarem 20ml was administered for the contrast portion of the examination. COMPARISON: MRI thoracic spine , CTA 06/01/2019 FINDINGS: Normal size of the ventricles and extra-axial spaces for the patient''s age. Normal white matter tracts of the supratentorial brain. There is no evidence for recent intracranial ischemia or other cause of cytotoxic edema on diffusion weighted imaging (DWI). Normal T2* images of the brain without demonstrated susceptibility artifact. There is no demonstrated hemosiderin stain. Normal bilateral basal ganglia. Normal thalami. There is no extra-axial fluid accumulation. Normal flow voids within the major intracranial circulation suggesting patency by spin echo criteria. Normal venous enhancement. There is no enhancing intra-axial or extra-axial abnormality. Normal sella turcica, pituitary gland, infundibular stalk, optic chiasm and hypothalamus. Normal tectal plate and pineal gland. Normal midbrain, louise and medulla. Normal cerebellum. Normal basal cisterns. Normal bilateral temporal bones. Normal bilateral internal auditory canals. No demonstrated orbital abnormality, within the constraints of a routine brain study. Normal visualized paranasal sinuses. Normal calvarium and skull base. Normal visualized soft tissue structures. Normal visualized upper cervical spine. MRI/Brain W/WO Contrast IMPRESSION: Normal unenhanced and enhanced MRI of the brain. Electronically Signed: Jamal Kilpatrick MD at 8:49 EDT Tel , Service support ,
== END ==
PROVIDERS: PCP Family Medicine; Referring Provider Psychiatry & Neurology Neurology; Visit Provider Psychiatry & Neurology Neurology
DX: G93.0 Cerebral cysts (principal)
CPT/HCPCS: 70553; 72156; A9575

== ENCOUNTER 2019-07-10 17:58 | Emergency (ER) | payer MEDICAID, SELFPAY ==
[2019-07-10 18:00] VITALS: BP 135/98; PULSE 90; RESP 20; TEMP 36.9; O2SAT 94; BMI 31.5
--- NOTE | 2019-07-10 18:13 | EKG12_ITS ---
Test Reason : CHEST DISCOMFORT Blood Pressure : / mmHG Vent. Rate : 084 BPM Atrial Rate : 084 BPM P-R Int : 166 ms QRS Dur : 096 ms QT Int : 390 ms P-R-T Axes : 015 -10 023 degrees QTc Int : 460 ms Normal sinus rhythm Normal ECG Confirmed by MIKAYLA LEW, JOSE ([id number]), editor dictionary MISHA ROBINS ([id number]) on 07/14/2019 9:00:20 AM Referred By: THAD Confirmed By:JOSE DEGROOT MD
--- NOTE | 2019-07-10 18:13 | CT_ITS ---
STUDY: CTA CHEST REASON FOR EXAM: Male, 64 years old. SPINAL SX 2 WEEKS AGO-tumor removed from upper thoracic spine CP, DYSPNEA. RADIATION DOSAGE (If Supplied By Facility): CTDIvol = ( 10.84 ) mGy, DLP = ( 538.61 ) mGycm TECHNIQUE: The examination was performed with the intravenous administration of 100 ml Isovue 370. Post-processing of the angiographic images was performed, with multiplanar reformation and 3D reconstruction. Individualized dose optimization techniques were used for this CT. COMPARISON: 03/06/2014 FINDINGS: Heterogeneous thyroid. Normal enhancement of the main pulmonary artery and right and left pulmonary arteries. Normal enhancement of the bilateral peripheral pulmonary arteries. There is no demonstrated pulmonary embolism. Normal thoracic aorta and visualized great vessels. There is no demonstrated aortic dissection. Normal heart and pericardium. Normal mediastinum. Normal hilar regions. Normal visualized trachea and bronchi. The lungs are well expanded. Normal pulmonary parenchyma. Normal pleura. Normal chest wall structures. There is evidence of a posterior laminectomy at the upper thoracic spine with a prominent low attenuation collection around the surgical site evaluation for abscess is limited by phase of contrast. Upper abdomen demonstrates hepatic steatosis. Prominent soft tissue nodule anterior to the spleen most likely represents a splenule. CT/CTA Chest W/WO Contrast IMPRESSION: Heterogeneous thyroid. Recommend follow-up thyroid ultrasound. No demonstrated pulmonary embolism or arterial dissection. Upper thoracic spine posterior laminectomy with a prominent low-attenuation collection at the surgical site. Limited evaluation for abscess secondary to phase of contrast. Recommend clinical evaluation. Electronically Signed: Florencio Calabrese, at 19:14 EDT Tel , Service support ,
[2019-07-10 18:16] VITALS: O2SAT 97
--- NOTE | 2019-07-10 18:16 | ED.DCSUM_ITS ---
- ER Visit Summary Date of Service: 07/10/19 Chief Complaint: Midsternal chest pain after spine surgery History of Present Illness: The patient is a 64 M history of recent spine surgery due to a cyst in the spinal cord. Said since today's surgery has had midsternal chest pain. Does not change. Has had mild dyspnea. No hemoptysis. Not specifically pleuritic. He is never had a DVT or PE. He is never had any cardiac history. Prior to having the surgery he had no exertional symptoms no exertional dyspnea nor exertional chest pain. Physical Examination: Older male no acute distress vital signs stable afebrile. Pulse ox 94% on room air no signs hypoxia. Heart rate 90. HEENT exam unremarkable. Neck nontender no lymphadenopathy. Lungs clear to auscultation bilaterally. Heart regular rate and rhythm no murmur. He does have reproducible sternal tenderness. But there is no ecchymosis or bruising or swelling. No redness or warmth. Abdomen soft nontender normal bowel sounds no peritoneal signs. Patient moving all 4 extremities. Neurovascularly intact. Calves are nontender without edema or cords. Back exam he has a bandage upper thoracic spine surgery. Test Results: CBC normal white count of 7. Hemoglobin 15. Chemistries normal. Troponin normal. D-dimer slightly elevated 1.29. EKG normal sinus rhythm rate 84 with no acute signs of DC or ischemia. CTA of the chest shows no PE. Read by the radiologist and myself. They did note a small fluid collection around the surgical site of uncertain etiology. He has no signs of an abscess clinically. I discussed this with him he is followed up with a spine surgeon in a few weeks. Emergency Department Course and Treatment: Male with midsternal chest pain occurring after back surgery. Rule out PE versus cardiac etiology versus other. Will undergo cardiac work-up with a CT of his chest. Treatment Plan: Repeat exam he does have reproducible sternal tenderness. We went over all his test results he feels cardinal be discharged home. Ice to his chest wall. Motrin Tylenol for pain. Continue his pain medications. Follow-up with his spine surgeon. Disposition: Discharge Impression: Acute midsternal chest pain secondary to musculoskeletal etiology. Status post thoracic spine surgery 2 weeks ago This note was generated with [employer] software. It may contain incorrect words, spelling, and punctuation that were not noted in review of the chart prior to signing ED Disposition - Plan for ED Patient: Referrals: Roosevelt Henao DO [Primary Care Provider] -
[2019-07-10 18:32] LABS: Absolute Lymphocyte Count 1.58 X10^3/uL (0.83-4.51); Absolute Neutrophil Count 4.7 X10^3/uL (2.0-7.7); Basophil# 0.05 X10^3/uL; Basophil% 0.7 % (0-1); Eosinophil# 0.07 X10^3/uL; Hematocrit 46.2 % (40-54); Hemoglobin 15.5 g/dL (13.0-16.5); Lymphocyte # 1.58 X10^3/ul (4.0); Lymphocyte % 22.3 % (19-41); Mean Corp Hgb Conc 33.5 g/dL (32-36); Mean Corpuscular Volume 89.4 fL (80-94); Monocyte# 0.59 X10^3/uL; Monocyte% 8.3 % (0-10); NRBC Flagged by Analyzer 0 % (0-5); Neutrophil # 4.74 X10^3/uL (2.7-7.7); Neutrophil % 67.1 % (47-70); Platelet Count 260 K/mm3 (150-450); RBC Distribution Width CV 12.6 % (11.6-14.6); RBC Distribution Width SD 41.1 fl (35.1-43.9); Red Blood Count 5.17 M/mm3 (4.6-6.2); White Blood Count 7.1 K/mm3 (4.4-11.0)
[2019-07-10 18:42] LABS: Anion Gap 7 (5-15); BUN 16 mg/dL (7-18); Calcium,Total 9.2 mg/dL (8.5-10.1); Chloride 107 mmol/L (98-107); EST Glomerular Filtration Rate 80 mL/min (>60); Est Glom Filt Rate - Afr Amer 97 mL/min (>60); Estimated Creatinine Clearance 81.91 ml/min; Glucose 94 mg/dL (74-106); Potassium 3.7 mmol/L (3.5-5.1); Sodium Level 139 mmol/L (136-145)
[2019-07-10 18:45] LABS: International Normalized Ratio 1.1; Prothrombin Time (Protime)PT. 13.6 SECONDS (11.7-14.9)
[2019-07-10 18:46] LABS: Partial Thromboplast Time 28.9 Seconds (24.1-36.2)
[2019-07-10 18:48] LABS: D-Dimer Quantitative (DVT/PE) 1.29 FEU/ug/m (0.27-0.49)
--- NOTE | 2019-07-10 18:55 | ED.RN ---
notified Dr. Ramirez of d-dimer 04.22
--- NOTE | 2019-07-10 19:46 | ED.DEP ---
ED Disposition - Plan for ED Patient: Disposition: Home or Assisted Living Instructions: ED CHEST CONTUSION Referrals: Roosevelt Henao DO [Primary Care Provider] - As Needed Additional Instructions: Your cardiac work-up was negative. There is no signs of a blood clot in your lungs. This appears to be chest wall pain from your sternum. Motrin for pain. Continue your pain medications. Ice to your chest wall. This should progressively improve with time. Follow-up with your spine surgeon.
[2019-07-10 19:47] VITALS: BP 147/93; PULSE 79; RESP 14; O2SAT 95
== END 2019-07-10 20:00 | disposition home or self-care (01) ==
PROVIDERS: Emergency Provider Emergency Medicine; PCP Family Medicine
DX: R07.89 Other chest pain (principal); G89.18 Other acute postprocedural pain; R06.00 Dyspnea, unspecified; R79.89 Other specified abnormal findings of blood chemistry; Z79.899 Other long term (current) drug therapy
CPT/HCPCS: 71275; 80048; 84484; 85025; 85379; 85610; 85730; 93005; 99284; Q9967; A4216

== ENCOUNTER → 2019-08-12 12:08 | Outpatient (CLI) | payer MEDICAID, SELFPAY ==
--- NOTE | 2019-08-12 12:29 | MRI_ITS ---
STUDY: MRI BRAIN WITHOUT CONTRAST REASON FOR EXAM: Male, 64 years old. speech problems after having shingles 7 weeks ago, headaches TECHNIQUE: Standardized multiplanar fat and water weighted pulse sequences were obtained. COMPARISON: 06/04/2019 FINDINGS: Normal size of the ventricles and extra-axial spaces for the patient''s age. Normal white matter tracts of the supratentorial brain. There is no evidence for recent intracranial ischemia or other cause of cytotoxic edema on diffusion weighted imaging (DWI). Normal T2* images of the brain without demonstrated susceptibility artifact. There is no demonstrated hemosiderin stain. Normal bilateral basal ganglia. Normal thalami. There is no extra-axial fluid accumulation. Normal flow voids within the major intracranial circulation suggesting patency by spin echo criteria. Normal sella turcica, pituitary gland, infundibular stalk, optic chiasm and hypothalamus. Normal tectal plate and pineal gland. Normal midbrain, louise and medulla. Normal cerebellum. Normal basal cisterns. Normal bilateral temporal bones. Normal bilateral internal auditory canals. No demonstrated orbital abnormality, within the constraints of a routine brain study. Normal visualized paranasal sinuses. Normal calvarium and skull base. Normal visualized soft tissue structures. Normal visualized upper cervical spine. MRI/Brain without Contrast IMPRESSION: Normal unenhanced MRI of the brain. Electronically Signed: Jamal Kilpatrick MD at 13:51 EDT Tel , Service support ,
== END ==
PROVIDERS: PCP Family Medicine; Referring Provider Psychiatry & Neurology Neurology; Visit Provider Psychiatry & Neurology Neurology
DX: R47.01 Aphasia (principal)
CPT/HCPCS: 70551

== ENCOUNTER → 2019-08-24 | Outpatient (CLI) | payer MEDICAID, SELFPAY ==
--- NOTE | 2019-08-24 | IMM_PTH ---
PATIENT: SEUN SANTOS LOC: [facility] U#:[id number] AGE/SX: 64/M ROOM: RE08/24/[address]: Dr. Roosevelt Henao DO : 1955 BED: DIS: 08/24/2019 SPEC #: [id number] RECD: 08/26/19 12:12 STATUS: YASMIN REDominga #: [id number] JOSÉ MIGUEL: 08/24/19 00:[address]: Roosevelt Henao DEPT: IMMUNOHISTOCHEMISTRY RECD BY: Giana Dallas Tissues: Skin of forearm, NOS Procedures: SMA (add) CD34 (add) DESMIN (add) MACRO (add) P53 (add) Vimentin (add) NEUROFIL (add) Pankeratin (initial) MELAN-A (add) S-100 (add) PHYSICIAN & INSTITUTION [place] [id number] SPECIMEN INFORMATION: Tissue Source: Right forearm, punch biopsy Clinical Info: Dark, changing mole Specimen Number: [id number] CPT code: 35390, 89770 x9 METHODOLOGY: Deparaffinized sections of prefer/formalin-fixed tissue or PAP/DQ stained slides are incubated with monoclonal/polyclonal antibodies/oligonucleotide probes. Localization is made via biotin free immunoperoxidase method. Appropriate controls are performed and reacted as expected. Results on target cell population are indicated in the following table: RESULTS: ANTIBODY / CLONE RESULT AE1-3 (AE1/AE3/PCK26) negative Vimentin (V9) positive Macro (HAM-56) positive Melan A (A103) negative S-100 (4C4.9) negative P53 (DO-7) negative CD34 (QBEnd-10) negative Actin (1A4) negative Desmin (CE-R-11) negative Neurofil (2F11) negative These tests were developed and their performance characteristics determined by [facility]. They may not have been cleared or approved by the U.S. Food and Drug Administration. The FDA has determined that such clearance or approval is not necessary. The above immunohistochemical/dualISH markers are ordered and reviewed by the Pathologist. INTERPRETATION: Skin lesion of right forearm, punch biopsy: No evidence of malignancy. AM:jaki 08/27/19 Case has been reviewed in consultation with Dr. Rodney who concurs with the above diagnosis. IDC:[id number]
--- NOTE | 2019-08-24 14:34 | LES_PTH ---
PATIENT: SEUN SANTOS LOC: [facility] U#:[id number] AGE/SX: 64/M ROOM: RE08/24/[address]: Dr. Roosevelt Henao DO : 1955 BED: DIS: 08/24/2019 SPEC #: [id number] RECD: 08/24/19 14:51 STATUS: YASMIN RUSTY #: [id number] JOSÉ MIGUEL: 08/24/19 14:[address]: Roosevelt Henao DEPT: SURGICAL PATHOLOGY RECD BY: Mikey Meza Tissues: Skin of forearm, NOS Procedures: Special Stain Group I Surgery Specimen Level IV GMS Stain (control) HEADER OPERATION: Punch biopsy right forearm PRE-OP DIAGNOSIS: Dark, changing mole; rule out melanoma TISSUE SUBMITTED: 3 mm punch biopsy mole right forearm MICROSCOPIC DIAGNOSIS Skin lesion of right forearm, punch biopsy: Ulceration with associated acute and chronic inflammation and fibrinoid exudate. No evidence of malignancy. See comment. AM:jaki 08/26/19 COMMENT Immunohistochemistry ([id number]) supports the above diagnosis. GMS stain with matched control is negative for fungal organisms. Case has been reviewed in consultation with Dr. Rodney who concurs with the above diagnosis. IDC:SJ MICROSCOPIC DESCRIPTION Slides are reviewed. GROSS DESCRIPTION Received is one container labeled with the patient's name and not further designated. The specimen consists of a cylindrical fragment of burton tissue measuring 0.2 x 0.1 x 0.1 cm. The specimen is totally submitted in one cassette. / AM:jaki 08/25/19 TC:2 CPT: 01406, 58934
== END | disposition home or self-care (01) ==
LOC: LABSPEC 14:50
PROVIDERS: PCP Family Medicine; Visit Provider Family Medicine
DX: D22.61 Melanocytic nevi of right upper limb, including shoulder (principal)
CPT/HCPCS: 88305; 88312; 88341; 88342

== ENCOUNTER → 2019-08-28 07:05 | Outpatient (CLI) | payer MEDICAID, SELFPAY ==
[2019-08-28 08:11] LABS: Cholesterol 237 mg/dL (200); High Density Lipoprotein 41 mg/dL; PSA,Total - Annual Screen 2.33 ng/mL (0.00-4.00); Triglycerides 173 mg/dL; Very Low Density Lipoprotein 35 mg/dL (5-40)
== END ==
PROVIDERS: PCP Family Medicine; Referring Provider Family Medicine; Visit Provider Family Medicine
DX: E78.5 Hyperlipidemia, unspecified (principal); Z12.5 Encounter for screening for malignant neoplasm of prostate
CPT/HCPCS: 36415; 80061; 84153; G0103

== ENCOUNTER 2019-09-22 18:00 | Outpatient (RCR) | payer MEDICAID, SELFPAY ==
--- NOTE | 2019-08-24 08:25 | HP.PTEVAL ---
Patient's Visit Information SEUN SANTOS is a 64 year old M referred to Physical Therapy by Dr. 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 Date of Evaluation: 08/24/19 Physical Therapist: Jose Anne, DPT, OCS, CSCS - Visit Plan Frequency: 2x /Week Duration: 4-6 Weeks Plan: 2x/week for 4-6 weeks for. 1. spend 20-30 minutes working on STM and PROM neck and UE/scap and posture. 2. Spend 30 minutes out in gym strengthening posture , LE and core adn working to I program for [employer]. ES if needed for pain with MH - Subjective Spine surgery on 06/29 cyst removal. Was losing feeling in legs and weak in legs so needed surgery. Now is sore adn stiff if sits too long or works too much at home. Sore is 6/10 constantly from shoulders down to low back. Is on a muscle relaxer which helps. Legs are weak but no symptoms. improving overall. Has been sitting for last two months. 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 Sits in hard chair long time makes back sore. Spends time at desk and in car. Will go back full duty tomorrow. Sleep is not great as shouldr pain makes him toss an turn. Wakes him up and hard to get to sleep. Basic aDLs are done by himself. Steps at home just wear him out. Carries laundry up and down steps whne needd. Not many hobbies. Helped son work on car a tlittle bit yesterday. Enjoys walking in the field to [place] but cannot do that. walking half mile a day with and feels tired but good. - Pain LBP Pain Intensity (Out of 10): 0 Pain Intensity Range: 0, 7 - Objective Posture is forward head and elevated scap B. Incision centrally lower cervical adn upper thoracic spine. Tight tissue underneath with mild scar tissue. no signs of excessive redness heat or swelling. Healing well but tends to hold scap and neck protracted and elevated.Mild tender to papation UT B and paraspinals B minimally. cervical ROM:55 R rotation and 45 L rotationa dn 30 ext c/s, SB is minimal. UE AROM 130 elevation before tight in lats. WFL exxt adn IR rotation shoulders. Scap has very little movement for retraction and depressiona ctively. elbow and wrist AROM WFL B.]Strength is 3+/5 UE adn 4- in LE. Weak and deconditioned. reflexes 2/3 patella and achilles and bi and tri B. Sensation WNL to gross light touch in UE and LE. Walks normal and safe but stiff in upper spine and tense. Trasnfers I. Steps reciprocal with one rail I but weakness obvooius descending steps. - Goals Goal 1:: sleep without interruptiona t night Goal Time Frame: 4-6 Weeks Goal 2:: Full UE AROM and 10 degree increase in c/s AROMs without pain Goal Time Frame: 4-6 Weeks Goal 3:: Baseline pain down 75% to 1/10 at most and manageable with ex Goal Time Frame: 4-6 Weeks Goal 4:: I approp HEP to minimize future probems and improve posture Goal Time Frame: 4-6 Weeks Goal 5:: oswestry score of 8 or less Goal Time Frame: 4-6 Weeks - Rehabilitation Potential Physical Therapy Diagnosis: Weakness, immobile after recent spine surgery. Rehabilitation Potential: Fair - Anticipated Interventions Patient/Client Instruction: Educate patient on: Condition, Plan of Care For the Purpose of:: To decrease pain, To increase ROM, To improve muscle performance and motor function, To increase tolerance to activity/condition/position, To improve gait and locomotor functions Therapeutic Exercise to Include: Strength training, Postural training, Flexibilty training, Neuromotor development, Passive ROM, Active ROM, Dynamic Lumbar Stabilization, Scapular Strength/Stabilization For the Purpose of:: To decrease pain, To increase ROM, To improve nutrient delivery to tissue, To improve muscle performance and motor function, To increase tolerance to activity/condition/position, To improve ability of physical actions for home/community/work/leisure Manual Therapy Techniques to Include: Petrissage, Scar massage, Mobilization, Passive ROM, Soft tissue mobilization For the Purpose of:: To decrease pain, To increase ROM TENS: Yes Thermo therapy (hot pack): Yes For the Purpose of:: To decrease pain Thank you for the opportunity to evaluate your patient. For Medicare and Medicare HMO plans, please review the plan of care and approve it. It will need to be FAXED BACK to us at [phone] for Medicare purposes. For Medicare only, by signing this I certify the plan of care. Please let me know if there are questions or concerns regarding this plan of care. Physician Signature: Date:
--- NOTE | 2019-09-22 18:28 | HP.PTDCSUM_ITS ---
It has been my pleasure to treat SEUN Amor PLANT referred by Dr. 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 Discharge Date: 09/22/19 Please see the following information for a summary of their discharge status. Subjective: Sleeping like a baby, using massager before bed helps. No real pain lately especially in shoulders. R groin can be kind of tender at times. Will join [employer] adn continue there. Pain over weekend was 0-1/10, was very good. Getting out of car easily. LBP Pain Intensity (Out of 10): 0 % Improvement: 85 Objective/Function: 55 degrees L rot c/s and 60 R and 60 ext. UE aROM fulla nd painfree. L/S Ext and flexion and SB min limited adn no pain. Moving well and improving in all aspects. Goal 1:: sleep without interruptiona t night Goal Progress: Goal Met Goal 2:: Full UE AROM and 10 degree increase in c/s AROMs without pain Goal Progress: Goal Met Goal 3:: Baseline pain down 75% to 1/10 at most and manageable with ex Goal Progress: Goal Met Goal 4:: I approp HEP to minimize future probems and improve posture Goal Progress: gym Goal 5:: oswestry score of 8 or less Goal Progress: Goal Met Plan: d/c , pt to join [employer] adn continue I. If there are questions or concerns regarding this patient's physical therapy, please feel free to call me at [phone]. Thank you for the referral of this patient. Sincerely, Jose Anne, DPT, OCS, CSCS
== END 2019-09-22 19:00 | disposition home or self-care (01) ==
LOC: PT 18:00
PROVIDERS: PCP Family Medicine; Referring Provider Neurological Surgery; Visit Provider Neurological Surgery
DX: G96.19 Other disorders of meninges, not elsewhere classified (principal)
CPT/HCPCS: 97014; 97110; 97140; 97162; 97164; G0283

== ENCOUNTER → 2019-11-17 15:49 | Outpatient (CLI) | payer MEDICAID, SELFPAY ==
[2019-11-17 17:22] LABS: AST(SGOT) 16 U/L (15-37); Alanine Aminotransfer ALT/SGPT 31 U/L (16-61); Albumin, Serum 3.8 g/dL (3.2-5.0); Alkaline Phosphatase 94 U/L (45-117); Anion Gap 5 (5-15); BUN 14 mg/dL (7-18); BUN/Creat Ratio 13.5 RATIO (10-20); CRP 4.77 mg/L (0.0-3.0); Calcium,Total 8.9 mg/dL (8.5-10.1); Chloride 106 mmol/L (98-107); Creatinine, Serum 1.04 mg/dL (0.70-1.30); EST Glomerular Filtration Rate 76 mL/min (>60); Est Glom Filt Rate - Afr Amer 92 mL/min (>60); Globulin 3.9 g/dL (2.2-4.2); Glucose 110 mg/dL (74-106); Potassium 3.5 mmol/L (3.5-5.1); Protein, Total 7.7 g/dL (6.4-8.2); Sodium Level 140 mmol/L (136-145)
[2019-11-17 17:39] LABS: Absolute Lymphocyte Count 1.36 X10^3/uL (0.83-4.51); Absolute Neutrophil Count 7.1 X10^3/uL (2.0-7.7); Basophil# 0.04 X10^3/uL; Basophil% 0.4 % (0-1); Eosinophil# 0.09 X10^3/uL; Hematocrit 49.2 % (40-54); Hemoglobin 16.1 g/dL (13.0-16.5); Lymphocyte # 1.36 X10^3/ul (4.0); Lymphocyte % 14.8 % (19-41); Mean Corp Hgb Conc 32.7 g/dL (32-36); Mean Corpuscular Hgb 29.2 pg (27.0-32.0); Mean Corpuscular Volume 89.3 fL (80-94); Mean Platelet Vol. 11.3 fl (6.2-12.0); Monocyte# 0.63 X10^3/uL; Monocyte% 6.8 % (0-10); NRBC Flagged by Analyzer 0 % (0-5); Neutrophil # 7.06 X10^3/uL (2.7-7.7); Neutrophil % 76.7 % (47-70); Platelet Count 241 K/mm3 (150-450); RBC Distribution Width CV 12.4 % (11.6-14.6); RBC Distribution Width SD 40.7 fl (35.1-43.9); Red Blood Count 5.51 M/mm3 (4.6-6.2); White Blood Count 9.2 K/mm3 (4.4-11.0)
[2019-11-17 17:45] LABS: Erythrocyte Sedimentation Rate 10 mm/hr (0-20)
[2019-11-19 16:27] LABS: ANTINUCLEAR ANTIBODIES DIRECT Negative (Negative)
== END ==
PROVIDERS: PCP Family Medicine; Visit Provider Family Medicine
DX: G62.9 Polyneuropathy, unspecified (principal); I73.89 Other specified peripheral vascular diseases
CPT/HCPCS: 36415; 80053; 85025; 85652; 86038; 86140; 86225; 86235

== ENCOUNTER → 2020-04-04 | Outpatient (CLI) | payer BC, SELFPAY | END | disposition home or self-care (01) | LOC: LABSPEC 17:32 | PROVIDERS: PCP Family Medicine; Referring Provider Family Medicine; Visit Provider Family Medicine | DX: Z20.828 Contact with and (suspected) exposure to other viral communicable diseases (principal) | CPT/HCPCS: 87635; C9803; U0005; U0003 ==

== ENCOUNTER → 2020-06-29 07:45 | Outpatient (CLI) | payer MEDICARE, SELFPAY ==
--- NOTE | 2020-06-29 07:54 | CT_ITS ---
STUDY: CT ABDOMEN AND PELVIS WITH AND WITHOUT CONTRAST REASON FOR EXAM: Male, 65 years old. [facility] RADIATION DOSAGE (If Supplied By Facility): CTDIvol = ( 26.37 ) mGy, DLP = ( 4283.95 ) mGycm TECHNIQUE: Transaxial images were obtained from the dome of the diaphragm to the symphysis pubis without oral contrast. IV 100mL Isovue-300 was administered. Sagittal and coronal images were reconstructed. Individualized dose optimization techniques were used for this CT. COMPARISON: None. FINDINGS: The visualized lung bases are unremarkable. The visualized portions of the heart are within normal limits. Normal liver. Normal gallbladder and extrahepatic biliary system. Normal spleen. Normal pancreas. Normal bilateral adrenal glands. Normal right kidney. There is a cyst in the left kidney measures 1.2 cm. Normal visualized stomach. Normal small intestine. Normal colon. The appendix is visualized and appears normal. Normal abdominal aorta. Normal inferior vena cava. Normal retroperitoneum. Normal urinary bladder. Normal abdominal wall. There are diffuse degenerative changes of the visualized lumbar spine. 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/CT Abd/Pelvis W/WO Contrast IMPRESSION: There is a cyst in the left kidney measures 1.2 cm. There is no evidence of kidney stones. There is no abnormal renal mass. Electronically Signed: Eun Brian MD at 13:05 EDT Tel , Service support ,
[2020-06-30 07:32] LABS: CREATININE FINGERSTICK 1.42 mg/dL (0.70-1.30); EGFR FINGERSTICK 53 mL/min (>60)
== END ==
PROVIDERS: PCP Family Medicine
DX: R31.9 Hematuria, unspecified (principal); R35.1 Nocturia
CPT/HCPCS: 74178; Q9967

== ENCOUNTER → 2020-07-29 11:19 | Outpatient (CLI) | payer MEDICARE, SELFPAY ==
[2020-07-31 13:49] LABS: PSA, Free 0.48 ng/mL; PSA, Free % 26.7 % (.); PSA, Total Ultrasensitive 1.8 ng/mL (0.0-4.0)
== END ==
PROVIDERS: PCP Family Medicine
DX: R35.1 Nocturia (principal)
CPT/HCPCS: 36415; 84153; 84154

== ENCOUNTER 2020-08-17 18:19 | Emergency (ER) | payer OTHER, MEDICARE, MEDICAID, SELFPAY ==
[2020-08-17 18:20] VITALS: BP 167/97; PULSE 72; RESP 15; TEMP 36.8; O2SAT 96; BMI 31.1
--- NOTE | 2020-08-17 18:37 | CT_ITS ---
STUDY: CT BRAIN WITHOUT CONTRAST REASON FOR EXAM: Male, 65 years old. [facility] RADIATION DOSAGE (If Supplied By Facility): CTDIvol = ( 44.99 ) mGy, DLP = ( 829.85 ) mGycm TECHNIQUE: Transaxial CT imaging of the brain was performed without administration of intravenous contrast material. Individualized dose optimization techniques were used for this CT. COMPARISON: No relevant priors. FINDINGS: Normal soft tissue structures. Normal calvarium. Normal size ventricles and extra-axial spaces for the patient''s age. Normal white matter tracts of the cerebral hemispheres. Normal basal ganglia and thalami. Normal brainstem. Normal cerebellum. There is no intracranial hemorrhage. There are no findings of an acute ischemic infarction. Normal visualized paranasal sinuses. CT/Brain/Head without Contrast IMPRESSION: Normal unenhanced CT scan of the brain. Electronically Signed: Serjio Sultana MD at 8:11 EDT , Service support ,
--- NOTE | 2020-08-17 18:37 | CT_ITS ---
STUDY: CT CERVICAL SPINE WITHOUT CONTRAST REASON FOR EXAM: Male, 65 years old. [facility] RADIATION DOSAGE (If Supplied By Facility): CTDIvol = ( 24.18 ) mGy, DLP = ( 572.15 ) mGycm TECHNIQUE: High resolution transaxial imaging was performed without contrast material. Sagittal and coronal images were reconstructed. Individualized dose optimization techniques were used for this CT. COMPARISON: None FINDINGS: Normal craniovertebral junction. There are degenerative changes of the anterior atlantoaxial articulation. Normal odontoid process. Normal cervical lordosis. Normal vertebral bodies and posterior osseous elements. C2-3: Normal endplates. Normal disc height and morphology. Normal central canal and intervertebral neuroforamina. C3-4: Mild disc space narrowing. Uncovertebral arthrosis. No significant stenosis is seen. C4-5: Normal endplates. Normal disc height and morphology. Normal central canal and intervertebral neuroforamina. C5-6: Mild to moderate degree of disc space narrowing. Facet joint osteoarthritis and hypertrophy worse on the left side. Uncovertebral arthrosis. Mild degree of bilateral neural foraminal stenosis slightly worse on the left side. C6-7: Moderate degree of disc space narrowing. Facet joint osteoarthritis and hypertrophy more prominent on the left side. No significant stenosis seen. C7-T1: Normal endplates. Normal disc height and morphology. Normal central canal and intervertebral neuroforamina. Normal visualized soft tissue structures. CT/Spine Cervical without Contras IMPRESSION: Multilevel degenerative changes, as described above. Electronically Signed: Serjio Sultana MD at 8:13 EDT , Service support ,
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
--- NOTE | 2020-08-17 18:43 | RAD_ITS ---
STUDY: X-RAY CHEST REASON FOR EXAM: Male, 65 years old. [facility] TECHNIQUE: AP portable COMPARISON: None. FINDINGS: The lungs are clear and expanded. There is no demonstrated pleural abnormality. Normal size heart. Normal mediastinum and say. Normal visualized pulmonary arteries. Normal visualized aortic arch and descending thoracic aorta. Normal visualized thoracic spine. Normal visualized ribs, clavicles, and shoulders. There is no demonstrated abnormality of the visualized soft tissue structures of the upper abdomen. RAD/Chest 1 View IMPRESSION: Normal x-ray examination of the chest. Electronically Signed: Reagan Arriola MD at 20:32 EDT , Service support ,
[2020-08-17] MEDS: cycloBENZAPRine HCl 10 MG Tablet PO (19:56)
[2020-08-17] MEDS: Acetaminophen 500 MG Tablet 1000 MG PO (19:56)
== END 2020-08-17 20:20 | disposition home or self-care (01) ==
PROVIDERS: Emergency Provider Emergency Medicine; PCP Family Medicine
DX: S16.1XXA Strain of muscle, fascia and tendon at neck level, initial encounter (principal); S29.011A Strain of muscle and tendon of front wall of thorax, initial encounter; R51.9 Headache, unspecified; V89.2XXA Person injured in unspecified motor-vehicle accident, traffic, initial encounter; Y93.9 Activity, unspecified; Y92.410 Unspecified street and highway as the place of occurrence of the external cause; Y99.9 Unspecified external cause status; G62.9 Polyneuropathy, unspecified; M19.90 Unspecified osteoarthritis, unspecified site; Z79.1 Long term (current) use of non-steroidal anti-inflammatories (NSAID); Z79.899 Other long term (current) drug therapy
CPT/HCPCS: 70450; 71045; 72125; 99283

== ENCOUNTER → 2020-10-27 11:43 | Outpatient (CLI) | payer MEDICARE, SELFPAY ==
[2020-11-04 09:08] LABS: Testosterone, Free 8.01 ng/dL (5.00-21.00)
[2020-11-04 11:50] LABS: Testosterone, % Free 2.67 % (1.50-4.20); Testosterone, Total 300 ng/dL (264-916)
== END ==
PROVIDERS: PCP Family Medicine
DX: N52.9 Male erectile dysfunction, unspecified (principal)
CPT/HCPCS: 36415; 84402; 84403

== ENCOUNTER 2020-11-19 11:31 | Inpatient (IN) | payer MEDICARE, SELFPAY ==
[2020-11-19] VITALS (11 sets, daily range): BP systolic 122–138; BP diastolic 74–99; PULSE 85–89; RESP 16–87; TEMP 36.7–37.7; O2SAT 90–98; BMI 30.6; BMI 31.8
--- NOTE | 2020-11-19 13:29 | EKG12_ITS ---
Test Reason : PAIN Blood Pressure : / mmHG Vent. Rate : 090 BPM Atrial Rate : 090 BPM P-R Int : 182 ms QRS Dur : 084 ms QT Int : 346 ms P-R-T Axes : 029 -04 022 degrees QTc Int : 423 ms Normal sinus rhythm Inferior infarct , age undetermined Abnormal ECG Confirmed by MIKAYLA LEW, JOSE ([id number]), editor department ROMIE HAQUE ([id number]) on 11/21/2020 12:39:30 PM Referred By: GENE Confirmed By:JOSE DEGROOT MD
--- NOTE | 2020-11-19 13:29 | RAD_ITS ---
STUDY: X-RAY CHEST REASON FOR EXAM: Male, 65 years old. Stroke TECHNIQUE: AP COMPARISON: 08/17/2020 FINDINGS: Patchy reticular and groundglass opacities in the bilateral lung bases and right upper lobe new since the prior study. There is no demonstrated pleural abnormality. Normal size heart. Normal mediastinum and say. Normal visualized pulmonary arteries. Normal visualized aortic arch and descending thoracic aorta. No acute bony process. There is no demonstrated abnormality of the visualized soft tissue structures of the upper abdomen. RAD/Chest 1 View (Portable) IMPRESSION: Multilobar infiltrates favoring pneumonia, including viral causes. Electronically Signed: Car Gomez MD ([place]) at 14:18 EDT , Service support ,
[2020-11-19 13:45] LABS: Absolute Lymphocyte Count 0.47 X10^3/uL (0.83-4.51); Absolute Neutrophil Count 4.5 X10^3/uL (2.0-7.7); Basophil# 0.01 X10^3/uL; Basophil% 0.2 % (0-1); Hematocrit 47.9 % (40-54); Hemoglobin 15.9 g/dL (13.0-16.5); Lymphocyte # 0.47 X10^3/ul (0.83-4.51); Lymphocyte % 8.5 % (19-41); Mean Corp Hgb Conc 33.2 g/dL (32-36); Mean Corpuscular Hgb 29.4 pg (27.0-32.0); Mean Corpuscular Volume 88.7 fL (80-94); Mean Platelet Vol. 10.4 fl (6.2-12.0); Monocyte# 0.56 X10^3/uL; Monocyte% 10.1 % (0-10); NRBC Flagged by Analyzer 0 % (0-5); Neutrophil # 4.48 X10^3/uL (2.7-7.7); Neutrophil % 80.8 % (47-70); POSITIVE DIFFERENTIAL YES; Platelet Count 169 K/mm3 (150-450); RBC Distribution Width CV 13.5 % (11.6-14.6); RBC Distribution Width SD 43.7 fl (35.1-43.9); White Blood Count 5.5 K/mm3 (4.4-11.0)
[2020-11-19 13:50] LABS: Differential Indicated SCAN CRITERIA MET
[2020-11-19 14:00] LABS: Prothrombin Time (Protime)PT. 12.4 SECONDS (11.7-14.9)
[2020-11-19 14:01] LABS: Partial Thromboplast Time 33.5 Seconds (24.1-36.2)
[2020-11-19 14:03] LABS: Anion Gap 11 (5-15); BUN 33 mg/dL (7-18); Calcium,Total 8.2 mg/dL (8.5-10.1); Chloride 102 mmol/L (98-107); Creatinine, Serum 1.83 mg/dL (0.70-1.30); EST Glomerular Filtration Rate 40 mL/min (>60); Est Glom Filt Rate - Afr Amer 48 mL/min (>60); Estimated Creatinine Clearance 44.17 ml/min; Glucose 131 mg/dL (74-106); Potassium 3.4 mmol/L (3.5-5.1); Sodium Level 137 mmol/L (136-145)
--- NOTE | 2020-11-19 14:10 | CT_ITS ---
STUDY: CT BRAIN WITHOUT CONTRAST REASON FOR EXAM: Male, 65 years old. [facility] RADIATION DOSAGE (If Supplied By Facility): CTDIvol = ( 44.99 ) mGy, DLP = ( 812.98 ) mGycm TECHNIQUE: Transaxial CT imaging of the brain was performed without administration of intravenous contrast material. Individualized dose optimization techniques were used for this CT. COMPARISON: 08/11/2020 FINDINGS: Normal soft tissue structures. Normal calvarium. Normal size ventricles and extra-axial spaces for the patient''s age. Normal white matter tracts of the cerebral hemispheres. Normal basal ganglia and thalami. Normal brainstem. Normal cerebellum. There is no intracranial hemorrhage. There are no findings of an acute ischemic infarction. Normal visualized paranasal sinuses. CT/Brain/Head without Contrast IMPRESSION: Normal unenhanced CT scan of the brain. Electronically Signed: Car Gomez MD ([place]) at 15:02 EDT , Service support ,
[2020-11-19 14:14] LABS: Differential Comment SCANNED
[2020-11-19] MEDS: 0.9% Normal Saline 1,000 ML 999 ML IV (14:22)
[2020-11-19] MEDS: 0.9% Normal Saline 1,000 ML 50 ML IV (15:30)
--- NOTE | 2020-11-19 15:35 | EDS_ITS ---
HPI History of Present Illness Chief Complaint: Confusion Narrative Narrative: Patient presents with his son because of reported confusion that he has had for a week. He states that his health has been bad, and he feels generally weak, with shortness of breath. He denies any fevers or chills. He started a new medication for his chronic pain/nerve pain, and his son reports that today he was slightly delirious and appeared more confused and was having problems concentrating. Patient states he just does not feel well, and has vague complaints. He denies any nausea, vomiting, diarrhea, or other symptoms. They were concerned because he was very shaky. He has had decreased appetite and when they brought him food, he was so shaky that he had not all the food on the floor. He states that he has not been eating much, or drinking much recently. [facility] Medical History (Updated 11/19/20 @ 16:41 by Salazar Perez MD) Arthritis Neuropathy Home Medications alfuzosin 10 mg PO DAILY 08/17/20 [History Last Taken Unknown] amitriptyline 25 mg PO BID 08/17/20 [History Last Taken Unknown] cyclobenzaprine 10 mg PO TID PRN #20 tablet 08/17/20 [Rx Last Taken Unknown] finasteride 10 mg PO TID 08/17/20 [History Last Taken Unknown] meloxicam 15 mg PO DAILY 08/17/20 [History Last Taken Unknown] nifedipine 10 mg PO QHS 08/17/20 [History Last Taken Unknown] amlodipine 10 mg PO QHS 11/19/20 [History Last Taken Unknown] Allergy/AdvReac Type Severity Reaction Status Date / Time No Known Allergies Allergy Verified 11/19/20 11:33 Surgical History H/O Spinal surgery Social History Smoking Status: Never smoker ROS ROS ED ROS Narrative Constitutional: No fever, no chills. HEENT: No sore throat. No neck pain. No loss of vision. No rhinorrhea. Cardiovascular: No chest pain. No palpitations. No pedal edema. Respiratory: No cough, occasional shortness of breath. Abdominal: No abdominal pain. No nausea. No vomiting. Genitourinary: No dysuria. No hematuria. Musculoskeletal: No myalgias. No arthralgias. Neurologic: No headaches. No dizziness. No lightheadedness. Chronic nerve pain. Generalized weakness. Reported confusion. Problems concentrating. Positive shakiness. Skin: No rash. No change in color. Psychiatric: No depression. No anxiety. EXAM Physical Exam Narrative Exam Narrative: Afebrile. Vital signs noted. HEENT: Normocephalic. Atraumatic. PERRL, EOMI. Neck soft and supple. No point tenderness or step off. Tacky to dry mucous membranes. Cardiovascular: Regular rate and rhythm. No murmurs, rubs, or gallops apprecia mounika. Respiratory: No tachypnea. Lungs clear to auscultation bilaterally. Gastrointestinal: Abdomen soft, nontender, with normoactive bowel sounds. No rebound or guarding. Neurological: Awake. Alert. Oriented x3. Nonfocal, nonlateralizing. Patient needs assistance to sit up in bed. Skin: No rash. Normal color. No pallor. Musculoskeletal: No pedal edema. Full range of motion extremities. Const Vital Signs: 11/19/20 11:31 11/19/20 14:23 11/19/20 15:00 Temperature 98.3 F Temperature Source Temporal Pulse Rate 86 88 89 Respiratory Rate 18 18 16 Blood Pressure 125/99 H 125/74 H 127/79 H Blood Pressure Mean 107 91 95 Pulse Ox 92 98 93 Oxygen Delivery Method Room Air Room Air Room Air 11/19/20 16:00 Temperature Temperature Source Pulse Rate 87 Respiratory Rate 87 H Blood Pressure 122/75 H Blood Pressure Mean 90 Pulse Ox 91 Oxygen Delivery Method Room Air MDM MDM MDM Narrative Medical decision making narrative: Comprehensive work-up was pursued. Laboratory work was ordered per protocol. He has normal white count of 5.5, hemoglobin stable at 15.9. Normal platelet count of 169. INR is normal at 1.0. He has normal sodium. Potassium slightly low at 3.4, but I do not think that it is low enough to cause profound weakness. He appears dehydrated with a creatinine elevated at 1.83 with a BUN of 33. He will be bolused IV fluids. Glucose elevated appropriately at 131. Normal anion gap of 11. Chest x-ray shows multilobar infiltrates favoring pneumonia, including viral causes. I will add a COVID-[address] the brain was obtained which shows no acute process. He is positive for COVID-19. His son did state that he was sick previously, patient states he has not had his immunizations against COVID-19. Upon return ambulation from the bathroom, his pulse ox is in the 70s. He was placed on nasal cannula oxygen. Given his COVID-19 status and hypoxia, I do feel this may be the cause of his intermittent confusion. Patient will be discussed with the hospitalist for admission. Patient is in stable condition. Lab Data Attestation: I reviewed the patient's lab results. Labs: Laboratory Results - last 24 hr 11/19/20 11/19/20 11/19/20 13:35 13:35 13:35 WBC 5.5 RBC 5.40 Hgb 15.9 Hct 47.9 MCV 88.7 MCH 29.4 MCHC 33.2 RDW Std Deviation 43.7 RDW Coeff of Pascale 13.5 Plt Count 169 MPV 10.4 Immature Gran % (Auto) 0.400 Neut % (Auto) 80.8 H Lymph % (Auto) 8.5 L [place] % (Auto) 10.1 H Eos % (Auto) 0.0 Baso % (Auto) 0.2 Absolute Neuts (auto) 4.5 Absolute Lymphs (auto) 0.47 L Nucleated RBC % 0 Differential Comment SCANNED PT 12.4 INR 1.0 APTT 33.5 Sodium 137 Potassium 3.4 L Chloride 102 Carbon Dioxide 24.0 Anion Gap 11 BUN 33 H Creatinine 1.83 H Estim Creat Clear Calc 44.17 Est GFR (MDRD) Af Amer 48 L Est GFR (MDRD) Non-Af 40 L BUN/Creatinine Ratio 18.0 Glucose 131 H Calcium 8.2 L Radiography Diagnostic Testing: Radiology Impression Chest X-Ray 11/19/20 13:29 IMPRESSION: Multilobar infiltrates favoring pneumonia, including viral causes. Electronically Signed: Car Gomez MD (Brooks) at 14:18 EDT , Service support , Brain CT 11/19/20 14:10 IMPRESSION: Normal unenhanced CT scan of the brain. Electronically Signed: Car Gmoez MD (Brooks) at 15:02 EDT , Service support , Discharge Plan Dx/Rx/DC Orders Clinical Impression: COVID-19, Hypoxia Disposition Disposition: Acute Care Hospital [facility]
--- NOTE | 2020-11-19 16:06 | ED.RN ---
Per Dr. Perez NIH's do not need continued.
--- NOTE | 2020-11-19 16:58 | NURSING ---
MED SURG DR LAURE AGUILERA 19, HYPOXIA
[2020-11-19] MEDS: dexAMETHasone 10 MG/ML Vial 6 MG IV (17:11)
[2020-11-19 17:33] LABS: AST(SGOT) 94 U/L (15-37); Alanine Aminotransfer ALT/SGPT 63 U/L (16-61); Albumin, Serum 3.3 g/dL (3.2-5.0); Alkaline Phosphatase 54 U/L (45-117); Bilirubin, Direct 0.16 mg/dL (0.00-0.30); Globulin 4.4 g/dL (2.2-4.2); Protein, Total 7.7 g/dL (6.4-8.2)
[2020-11-19 17:42] LABS: D-Dimer Quantitative (DVT/PE) 0.94 FEU/ug/m (0.27-0.49)
--- NOTE | 2020-11-19 17:53 | PCM.HP.STD ---
HPI - General General Date of Admission: 11/19/20 HPI Narrative SEUN SANTOS, is a 65 M who presented to the emergency department at [facility] on 11/19/2020 with a chief complaint of confusion. The patient was brought to the ED by his son because they were concerned about intermittent confusion he had been having for approximately a week now. His subjective complaints included generalized weakness with shortness of breath. He denies any fever or chills but states that he has pain all over his body and states that he is not been able to eat because of this. He has been placed on medication recently for chronic pain and nerve pain. His complaints are overall fairly vague but he does deny any nausea, vomiting, diarrhea or other symptoms. His p.o. intake has been very poor in the last 24 to 48 hours. In the emergency department he was afebrile and normotensive his respiratory rate was mildly elevated at 19 his oxygen saturations were hypoxic on room air and worsened into the 80s with ambulation. Upon my exam he was on 5 L nasal cannula and SPO2 was 87%. We did increase his oxygen to 6 L and he improved to 92%. His CBC is unremarkable. His D-dimer was mildly elevated at 0.94. His BMP shows mild hypokalemia with potassium of 3.4, a BUN of 33, a serum creatinine of 1.83 which is markedly above his baseline, mild hyperglycemia with a blood glucose of 131, and transaminitis with an AST of 94 and an ALT of 63. His EKG done the emergency department shows normal sinus rhythm without any acute ectopy or ST-T wave changes his chest x-ray shows multilobar infiltrates and a CT of his brain showed normal unenhanced CT. A COVID-19 rapid was performed and was positive. He has multiple sick contacts in his house including his and his sons. His son who is currently at the bedside is going to work. We advised him on quarantine for the next 14 days for he and all other people in the house who are nonhospitalized. He unfortunately has been going to work. The patient reports his is also sick and is complex from a medical standpoint. The patient was not vaccinated indicating he did not want the vaccine until it was FDA approved. We did discuss approval of the Pfizer vaccine by the FDA recently and he indicates that he would like to have that performed. We discussed that we need to get him better before he would be able to have that vaccine done. I did advise him that we only have Decadron available and we are out of remdesivir we discussed the risks and benefits and he would like to proceed with admission. He will be admitted to medical surgical floor for continued care. [facility] Medical History Arthritis Neuropathy Home Medications alfuzosin 10 mg PO DAILY 08/17/20 [History Last Taken Unknown] amitriptyline 25 mg PO BID 08/17/20 [History Last Taken Unknown] cyclobenzaprine 10 mg PO TID PRN #20 tablet 08/17/20 [Rx Last Taken Unknown] finasteride 10 mg PO TID 08/17/20 [History Last Taken Unknown] meloxicam 15 mg PO DAILY 08/17/20 [History Last Taken Unknown] nifedipine 10 mg PO QHS 08/17/20 [History Last Taken Unknown] amlodipine 10 mg PO QHS 11/19/20 [History Last Taken Unknown] Allergy/AdvReac Type Severity Reaction Status Date / Time No Known Allergies Allergy Verified 11/19/20 11:33 Family History (Updated 11/19/20 @ 18:[address] Lizeth Theodore DO) Other CAD (coronary artery disease) Heart disease Hypertension Surgical History H/O Spinal surgery Social History Smoking Status: Never smoker ROS Constitutional Constitutional: Reports anorexia, fatigue, malaise and weakness; Denies change in weight, chills, fever(s), night sweats or other Eyes Eyes: Denies blurry vision, change in eye color, change in vision, discharge from eye(s), double vision, erythema, eye pain, loss of vision or other ENT HEENT: Denies abnormal hearing, dysphagia, ear pain, epistaxis, headache(s), hearing loss, nasal congestion, nasal discharge, post nasal drip, sinus pressure, sore throat or other Cardiovascular Cardiovascular: Denies chest pain, claudication, dyspnea on exertion, edema, lightheadedness, orthopnea, palpitations, paroxysmal nocturnal dyspnea, rapid heart rate, syncope or other Respiratory/Chest Respiratory/Chest: Reports cough, shortness of breath at rest and shortness of breath with exertion; Denies dyspnea, excessive phlegm production, hemoptysis, productive cough, wheezing or other Gastrointestinal Gastrointestinal: Denies abdominal pain, coffee ground emesis, constipation, diarrhea, dyspepsia, hematemesis, hematochezia, loose stools, melena, nausea, vomiting or other Genitourinary Genitourinary: Denies burning urination, difficulty urinating, dysuria, hematuria, nocturia, urinary frequency, urinary hesitancy, urinary incontinence, urinary urgency or other Musculoskeletal Musculoskeletal: Denies arthralgias, back pain, joint pain, joint stiffness, joint swelling, myalgias, neck pain or other Neurologic Neurologic: Reports other Details: Skin hypersensitivity Psychiatric Psychiatric: Denies anxiety, depression, homicidal ideation, suicidal ideation or other Endocrine Endocrinology: Denies change in body appearance, cold intolerance, excessive sweating, heat intolerance, polydipsia, polyuria or other Hematologic/Lymphatic Hematologic/Lymphatic: Denies anemia, easy bleeding, easy bruising, lymphadenopathy or other Allergic/Immunologic Allergic/Immunologic: Denies rhinitis, hives, eczemia, asthma or other Vital Signs Vital Signs Vital Signs: 11/19/20 11:31 11/19/20 14:23 11/19/20 15:00 Temperature 98.3 F Temperature Source Temporal Pulse Rate 86 88 89 Respiratory Rate 18 18 16 Blood Pressure 125/99 H 125/74 H 127/79 H Blood Pressure Mean 107 91 95 Pulse Ox 92 98 93 Oxygen Delivery Method Room Air Room Air Room Air Oxygen Flow Rate (L/min) 11/19/20 16:00 11/19/20 17:00 11/19/20 17:12 Temperature 98.1 F Temperature Source Oral Pulse Rate 87 86 Respiratory Rate 87 H 19 H 19 H Blood Pressure 122/75 H 133/75 H Blood Pressure Mean 90 94 Pulse Ox 91 94 Oxygen Delivery Method Room Air Nasal Cannula Oxygen Flow Rate (L/min) 4 Weight Weight: 102.512 kg Body Mass Index (BMI) 30.6 Physical Exam Const alert, oriented x3 and no apparent distress General Appearance: cooperative HEENT normocephalic, head/scalp atraumatic, hearing grossly normal bilaterally and moist oral mucous membranes Mouth: oral and palatal mucosa normal Eyes PERRL, EOMs intact bilaterally and conjunctivae normal Neck no lymphadenopathy, supple, no JVD and no carotid bruits Resp normal respiratory effort, no retractions, no use of accessory muscles and clear to auscultation bilaterally Resp Narrative: Diffusely diminished but clear Auscultation: Negative for crackles, rales, rhonchi or wheezes Cardio regular rate, regular rhythm, S1 normal heart sound, S2 normal heart sound, no murmurs, no rub, no gallops, no clicks and no JVD GI normal to inspection, nondistended, normoactive bowel sounds, soft to palpation, non-tender and non-distended Extremity no clubbing, cyanosis or edema Peripheral Pulses: Yes pulses 2+ throughout Skin no rashes or lesions noted, no wounds, skin turgor normal, no jaundice, no petechiae and no mottling Skin Narrative: Skin is hypersensitive to touch Neuro oriented x3, CN's II-XII intact bilaterally, moves all extremities and no focal motor deficits Neuro Narrative: Analyzed weakness and fatigue but no focal deficits Sensorium / Orientation: awake and alert Speech: speech normal Psych Psych Narrative: Patient has somewhat of a strange affect but is appropriate Results Lab / Micro Data Attestation: I reviewed the patient's lab results. Result Diagrams: 11/19/20 13:35 11/19/20 13:35 Labs: Laboratory Results - last 24 hr 11/19/20 13:35: WBC 5.5, RBC 5.40, Hgb 15.9, Hct 47.9, MCV 88.7, MCH 29.4, MCHC 33.2, RDW Std Deviation 43.7, RDW Coeff of Pascale 13.5, Plt Count 169, MPV 10.4, Immature Gran % (Auto) 0.400, Neut % (Auto) 80.8 H, Lymph % (Auto) 8.5 L, [place] % (Auto) 10.1 H, Eos % (Auto) 0.0, Baso % (Auto) 0.2, Absolute Neuts (auto) 4.5, Absolute Lymphs (auto) 0.47 L, Nucleated RBC % 0, Differential Comment SCANNED 11/19/20 13:35: PT 12.4, INR 1.0, APTT 33.5 11/19/20 13:35: Sodium 137, Potassium 3.4 L, Chloride 102, Carbon Dioxide 24.0, Anion Gap 11, BUN 33 H, Creatinine 1.83 H, Estim Creat Clear Calc 44.17, Est GFR (MDRD) Af Amer 48 L, Est GFR (MDRD) Non-Af 40 L, BUN/Creatinine Ratio 18.0, Glucose 131 H, Calcium 8.2 L 11/19/20 13:35: Total Bilirubin 0.50, Direct Bilirubin 0.16, AST 94 H, ALT 63 H, Alkaline Phosphatase 54, Total Protein 7.7, Albumin 3.3, Globulin 4.4 H 11/19/20 17:13: D-Dimer Quant (PE/DVT) 0.94 H* Micro: Microbiology 11/19/20 15:37 Nasal Secretion SARS-CoV-2 Antigen (Rapid) - Final SARS-CoV-2 (COVID 19) Radiology Impression Chest X-Ray 11/19/20 13:29 IMPRESSION: Multilobar infiltrates favoring pneumonia, including viral causes. Electronically Signed: Car Gomez MD (Brooks) at 14:18 EDT , Service support , Brain CT 11/19/20 14:10 IMPRESSION: Normal unenhanced CT scan of the brain. Electronically Signed: Car Gomez MD (Brooks) at 15:02 EDT , Service support , Assessment & Plan Assessment/Plan (1) COVID-19: (2) Acute respiratory failure with hypoxia: (3) RAYNE (acute kidney injury): (4) Hypokalemia: (5) Transaminitis: PLAN: Acute hypoxic respiratory failure secondary to COVID-19 -Patient is currently on 6 L nasal cannula with an SPO2 of 92% -We did discuss the potential need for intubation depending on how he does clinically -Patient is agreeable if needed -Remdesivir is unavailable at this time -Per the son the patient patient has had symptoms for approximately 7 days at this time and would qualify for remdesivir if available -Start Decadron day 1 of 10 -Continue supportive care -Entire family within living quarters was advised to quarantine for the next 14 days or 14 days from the initiation of symptoms if they become symptomatic D-dimer elevation -This may be because of RAYNE -We will hydrate and if serum creatinine improves the next 24 hours we will check CTA in the a.m. -Start twice daily prophylactic dose Lovenox at this time RAYNE secondary to dehydration -We will hydrate -DO intake has been poor -If serum creatinine does not improve will obtain further work-up with retroperitoneal ultrasound, urine eosinophils, urine lytes -Avoid nephrotoxins -Hold home meloxicam Transaminitis -Likely related to acute Covid infection -We will trend Hyperglycemia -Monitor and if sugars trend up on fasting blood work will check hemoglobin A1c and likely start sliding scale -Patient has not diabetic at baseline Hypertension -Continue amlodipine but hold nifedipine as this is duplicate therapy -Monitor blood pressures BPH -Continue finasteride and afluzosin Skin hypersensitivity -Hold cyclobenzaprine -Continue amitriptyline 25 mg twice daily -As needed opiates available Obesity -BMI is 31.9 -Complicates overall treatment, prognosis, and outcomes -Recommend weight loss DVT prophylaxis -Lovenox 40 mg twice daily -SCDs CODE STATUS -Full code-verified in the emergency department Charges/Coding Visit Charges Inpatient E&M: 55061 Init Hosp L3
[2020-11-19] MEDS: Lactated Ringers 1,000 ML 70 ML IV (18:14)
[2020-11-19] MEDS: Potassium Chloride Oral Tablet 20 MEQ 40 MEQ PO (18:14)
[2020-11-19] MEDS: amLODIPine 10 MG Tablet PO (21:29)
[2020-11-19] MEDS: Enoxaparin 40 MG/0.4 ML Syringe SC (21:29)
[2020-11-19] MEDS: Amitriptyline 25 MG Tablet PO (21:30)
--- NOTE | 2020-11-19 22:18 | NURSING ---
covid 19 emergency charting in effect 11/19/20
[2020-11-20] VITALS (28 sets, daily range): BP systolic 106–149; BP diastolic 49–90; PULSE 74–95; RESP 13–26; TEMP 36.1–36.7; O2SAT 91–100
[2020-11-20 05:55] LABS: Absolute Lymphocyte Count 0.55 X10^3/uL (0.83-4.51); Absolute Neutrophil Count 3.1 X10^3/uL (2.0-7.7); Basophil# 0.01 X10^3/uL; Basophil% 0.2 % (0-1); Hematocrit 45.6 % (40-54); Hemoglobin 15.1 g/dL (13.0-16.5); Lymphocyte # 0.55 X10^3/ul (0.83-4.51); Lymphocyte % 13.5 % (19-41); Mean Corp Hgb Conc 33.1 g/dL (32-36); Mean Corpuscular Volume 87.7 fL (80-94); Mean Platelet Vol. 10.4 fl (6.2-12.0); Monocyte# 0.39 X10^3/uL; Monocyte% 9.6 % (0-10); NRBC Flagged by Analyzer 0 % (0-5); POSITIVE DIFFERENTIAL YES; Platelet Count 179 K/mm3 (150-450); RBC Distribution Width CV 13.3 % (11.6-14.6); RBC Distribution Width SD 43.1 fl (35.1-43.9); White Blood Count 4.1 K/mm3 (4.4-11.0)
[2020-11-20 06:14] LABS: Differential Indicated SCAN CRITERIA MET
[2020-11-20] MEDS: Lactated Ringers 1,000 ML 70 ML IV ×2 (06:27→20:45)
[2020-11-20 06:29] LABS: ALB/GLOB Ratio 0.7 RATIO (0.9-2.4); AST(SGOT) 78 U/L (15-37); Alanine Aminotransfer ALT/SGPT 59 U/L (16-61); Albumin, Serum 2.7 g/dL (3.2-5.0); Alkaline Phosphatase 49 U/L (45-117); Anion Gap 9 (5-15); BUN 24 mg/dL (7-18); BUN/Creat Ratio 23.8 RATIO (10-20); Calcium,Total 7.8 mg/dL (8.5-10.1); Chloride 108 mmol/L (98-107); Creatinine, Serum 1.01 mg/dL (0.70-1.30); EST Glomerular Filtration Rate 79 mL/min (>60); Est Glom Filt Rate - Afr Amer 95 mL/min (>60); Estimated Creatinine Clearance 80.03 ml/min; Glucose 158 mg/dL (74-106); Magnesium 2.3 mg/dL (1.6-2.6); Phosphorus 2.9 mg/dL (2.5-4.9); Potassium 4.1 mmol/L (3.5-5.1); Protein, Total 6.7 g/dL (6.4-8.2); Sodium Level 139 mmol/L (136-145); Thyroid Stim Hormone (TSH) 0.69 uIU/mL (0.358-3.74)
--- NOTE | 2020-11-20 06:56 | CT_ITS ---
STUDY: CTA CHEST REASON FOR EXAM: Male, 65 years old. Hypoxia RADIATION DOSAGE (If Supplied By Facility): CTDIvol = ( 13.83 ) mGy, DLP = ( 461.97 ) mGycm TECHNIQUE: The examination was performed with the intravenous administration of IV 100mL Isovue-370. Post-processing of the angiographic images was performed, with multiplanar reformation and 3D reconstruction. Individualized dose optimization techniques were used for this CT. COMPARISON: None. FINDINGS: Normal enhancement of the main pulmonary artery and right and left pulmonary arteries. Normal enhancement of the bilateral peripheral pulmonary arteries. There is no demonstrated pulmonary embolism. Normal thoracic aorta and visualized great vessels. There is no demonstrated aortic dissection. Normal heart and pericardium. Normal mediastinum. Normal hilar regions. Normal visualized trachea and bronchi. Bilateral patchy groundglass densities and patchy infiltrates. Mild effusions at the lung bases. Normal chest wall structures. Normal osseous structures. Normal visualized upper abdomen. CT/CTA Chest W/WO Contrast IMPRESSION: No demonstrated pulmonary embolism or arterial dissection. Bilateral patchy groundglass densities and patchy infiltrates. Mild effusions at the lung bases. Electronically Signed: Christiano Grace DO at 9:01 EDT Tel [phone], Service support ,
--- NOTE | 2020-11-20 07:23 | CON.PCM.CC_ITS ---
Assessment & Plan Assessment/Plan (1) Acute respiratory failure with hypoxia: (2) COVID-19: PLAN: RECOMMENDATIONS: 1. Continue to wean FiO2 to maintain oxygen saturations at or above 90%. 2. Continue Decadron to complete 10-day treatment course. 3. Continue twice daily Lovenox. 4. Consider remdesivir once hospital supplies are replenished. 5. Stop continuous IV fluids. IMPRESSIONS: 1. Acute hypoxemic respiratory failure secondary to COVID-19 pneumonia The patient is unvaccinated male who presented to the hospital with progressive respiratory symptoms and was subsequently found to be positive for coronavirus. He has multiple sick contacts at home. Plan to continue current supportive measures including heated high flow oxygen with a goal to maintain oxygen saturations at or above 90%. Continue Decadron to complete 10-day treatment course. CTA chest showed no evidence for pulmonary embolism. Therefore, twice daily Lovenox will be continued. Attempt to maintain euvolemic state with as needed diuretic therapy. 2. Acute kidney injury Likely prerenal in etiology. Creatinine has normalized with volume expansion. Continuous fluids can be discontinued from my perspective. Continue to monitor urine output. No current indication for renal replacement therapy. 3. Obesity/BPH/hypertension Complicates care, management, recovery and prognosis. Continue home medications as indicated. This note was generated with [employer] dictation software. It may contain incorrect words, spelling, and punctuation that were not noted in checking the note before signing. HPI Consult Data Date of Consult: 11/20/20 HPI Narrative Reason for Consultation: Acute hypoxemic respiratory failure secondary to COVID- 19 pneumonia HPI Narrative: The patient is a 65-year-old male, with a history as outlined bel ow, who initially presented to the emergency department on the evening of November 19 with altered mentation, generalized weakness and dyspnea. The patient does have multiple sick contacts at home including his and sons. Neither of his sons have apparently been tested. The patient is unvaccinated. On presentation to the emergency department, the patient was noted to be afebrile and hemodynamically stable. He was initially documented to be saturating 92% on room air. Laboratory evaluation revealed no evidence of a leukocytosis. D-dimer was elevated at 0.94. Chemistry profile was notable for a potassium of 3.4 and creatinine of 1.83. AST and ALT were elevated to 94 and 63, respectively. Chest x-ray demonstrated bilateral multilobar infiltrates. CT head was unremarkable. Rapid coronavirus antigen testing was positive. The patient was started on supplemental IV fluids along with Lovenox and Decadron. The patient was admitted to the medical surgical floor for further management. Over the course of last night, the patient's oxygenation status decompensated. As of this morning he was requiring heated high flow oxygen with an FiO2 requirement of 70% and flow rate of 60 L/min. Therefore, the decision was made to transfer the patient to the medical intensive care unit. [facility] Medical History Arthritis Neuropathy Home Medications alfuzosin 10 mg PO DAILY 08/17/20 [History Last Taken Unknown] amitriptyline 25 mg PO BID 08/17/20 [History Last Taken Unknown] cyclobenzaprine 10 mg PO TID PRN #20 tablet 08/17/20 [Rx Last Taken Unknown] finasteride 10 mg PO TID 08/17/20 [History Last Taken Unknown] meloxicam 15 mg PO DAILY 08/17/20 [History Last Taken Unknown] nifedipine 10 mg PO QHS 08/17/20 [History Last Taken Unknown] amlodipine 10 mg PO QHS 11/19/20 [History Last Taken Unknown] Allergy/AdvReac Type Severity Reaction Status Date / Time No Known Allergies Allergy Verified 11/19/20 11:33 Family History (Updated 11/19/20 @ 18:[address] Lizeth Theodore DO) Other CAD (coronary artery disease) Heart disease Hypertension Surgical History H/O Spinal surgery Social History Smoking Status: Never smoker ROS Constitutional Constitutional: Reports fatigue, malaise and weakness Eyes Eyes: Denies blurry vision or change in vision ENT HEENT: Denies dizziness, hoarseness, loss taste/smell or nasal congestion Cardiovascular Cardiovascular: Reports dyspnea; Denies chest pain Respiratory/Chest Respiratory/Chest: Reports cough and dyspnea Gastrointestinal Gastrointestinal: Denies abdominal pain, diarrhea, nausea or vomiting Genitourinary Genitourinary: Denies difficulty urinating Musculoskeletal Musculoskeletal: Denies arthralgias or back pain Integumentary Integumentary: Denies lesions, rash or skin ulcer Neurologic Neurologic: Reports confusion Psychiatric Psychiatric: Denies anxiety or depression Endocrine Endocrinology: Reports fatigue Hematologic/Lymphatic Hematologic/Lymphatic: Denies easy bleeding or easy bruising Physical Exam Const alert, oriented x3 and no apparent distress Constitutional Narrative: Currently tolerating Airvo. General Appearance: cooperative Nutritional Appearance: obese HEENT normocephalic, head/scalp atraumatic and moist oral mucous membranes Eyes PERRL, EOMs intact bilaterally and conjunctivae normal Neck supple General: trachea midline Resp no use of accessory muscles Auscultation: diminished lung sounds; Negative for rales, rhonchi or wheezes Cardio regular rate and regular rhythm GI normal to inspection, nondistended, normoactive bowel sounds Extremity no clubbing, cyanosis or edema Skin no rashes or lesions noted Neuro moves all extremities and no focal motor deficits Psych cooperative and affect normal Lab / Micro Data Result Diagrams: 11/20/20 05:40 11/20/20 05:40 Labs: Laboratory Results - last 24 hr 11/19/20 13:35: WBC 5.5, RBC 5.40, Hgb 15.9, Hct 47.9, MCV 88.7, MCH 29.4, MCHC 33.2, RDW Std Deviation 43.7, RDW Coeff of Pascale 13.5, Plt Count 169, MPV 10.4, Immature Gran % (Auto) 0.400, Neut % (Auto) 80.8 H, Lymph % (Auto) 8.5 L, [place] % (Auto) 10.1 H, Eos % (Auto) 0.0, Baso % (Auto) 0.2, Absolute Neuts (auto) 4.5, Absolute Lymphs (auto) 0.47 L, Nucleated RBC % 0, Differential Comment SCANNED 11/19/20 13:35: PT 12.4, INR 1.0, APTT 33.5 11/19/20 13:35: Sodium 137, Potassium 3.4 L, Chloride 102, Carbon Dioxide 24.0, Anion Gap 11, BUN 33 H, Creatinine 1.83 H, Estim Creat Clear Calc 44.17, Est GFR (MDRD) Af Amer 48 L, Est GFR (MDRD) Non-Af 40 L, BUN/Creatinine Ratio 18.0, Glucose 131 H, Calcium 8.2 L 11/19/20 13:35: Total Bilirubin 0.50, Direct Bilirubin 0.16, AST 94 H, ALT 63 H, Alkaline Phosphatase 54, Total Protein 7.7, Albumin 3.3, Globulin 4.4 H 11/19/20 17:13: D-Dimer Quant (PE/DVT) 0.94 H* 11/20/20 05:40: WBC 4.1 L, RBC 5.20, Hgb 15.1, Hct 45.6, MCV 87.7, MCH 29.0, MCHC 33.1, RDW Std Deviation 43.1, RDW Coeff of Pascale 13.3, Plt Count 179, MPV 10.4, Immature Gran % (Auto) 0.700, Neut % (Auto) 76.0 H, Lymph % (Auto) 13.5 L, [place] % (Auto) 9.6, Eos % (Auto) 0.0, Baso % (Auto) 0.2, Absolute Neuts (auto) 3.1, Absolute Lymphs (auto) 0.55 L, Nucleated RBC % 0, Diff Path Review July11/20/20 05:40: Sodium 139, Potassium 4.1, Chloride 108 H, Carbon Dioxide 22.0, Anion Gap 9, BUN 24 H, Creatinine 1.01, Estim Creat Clear Calc 80.03, Est GFR (MDRD) Af Amer 95, Est GFR (MDRD) Non-Af 79, BUN/Creatinine Ratio 23.8 H, Glucose 158 H, Calcium 7.8 L, Phosphorus 2.9, Magnesium 2.3, Total Bilirubin 0.40, AST 78 H, ALT 59, Alkaline Phosphatase 49, Total Protein 6.7, Albumin 2.7 L, Globulin 4.0, Albumin/Globulin Ratio 0.7 L, TSH 0.69 Micro: Microbiology 11/19/20 15:37 Nasal Secretion SARS-CoV-2 Antigen (Rapid) - Final SARS-CoV-2 (COVID 19) Radiology Impression Chest X-Ray 11/19/20 13:29 IMPRESSION: Multilobar infiltrates favoring pneumonia, including viral causes. Electronically Signed: Car Goemz MD ([place]) at 14:18 EDT , Service support , Brain CT 11/19/20 14:10 IMPRESSION: Normal unenhanced CT scan of the brain. Electronically Signed: Car Gomez MD ([place]) at 15:02 EDT , Service support , Charges/Coding Visit Charges Inpatient E&M: 02677 Init Hosp L3
--- NOTE | 2020-11-20 08:40 | NURSING ---
0830 report called to ICU, pt down to CT and then to ICU. Harjeet Post RN
--- NOTE | 2020-11-20 11:35 | PCM.PN.HOSP ---
Subjective Subjective Patient clinically decompensated with regards to oxygenation through the night. He was on 6 L in the emergency department but needed to be uptitrated to 10 to 12 L on high flow nasal cannula and by this morning was requiring air Vo. At that time of transferred him to the intensive care unit. Upon my exam he states that his diffuse body hypersensitivity has improved but he has persistent shortness of breath. Objective Data Objective Data Vital Signs: Vital Signs Temp Pulse Resp BP Pulse Ox 97.0 F L 82 17 120/69 100 11/20/20 08:47 11/20/20 11:03 11/20/20 11:03 11/20/20 11:03 11/20/20 11:03 Oxygen Flow Rate (L/min) 60 Oxygen Delivery Method Airvo Weight: 106.594 kg Body Mass Index (BMI) 31.8 Intake & Output: Intake and Output for Last 24 Hours 11/18/20 11/19/20 11/20/20 23:59 23:59 23:59 Intake Total 1395 / 1645 1305.17 / 1305.17 Output Total 1100 / 1100 Balance 1395 / 1345 205.17 / 205.17 Lab / Micro Data Result Diagrams: 11/20/20 05:40 11/20/20 05:40 Labs: Laboratory Results - last 24 hr 11/19/20 13:35: WBC 5.5, RBC 5.40, Hgb 15.9, Hct 47.9, MCV 88.7, MCH 29.4, MCHC 33.2, RDW Std Deviation 43.7, RDW Coeff of Pascale 13.5, Plt Count 169, MPV 10.4, Immature Gran % (Auto) 0.400, Neut % (Auto) 80.8 H, Lymph % (Auto) 8.5 L, [place] % (Auto) 10.1 H, Eos % (Auto) 0.0, Baso % (Auto) 0.2, Absolute Neuts (auto) 4.5, Absolute Lymphs (auto) 0.47 L, Nucleated RBC % 0, Differential Comment SCANNED 11/19/20 13:35: PT 12.4, INR 1.0, APTT 33.5 11/19/20 13:35: Sodium 137, Potassium 3.4 L, Chloride 102, Carbon Dioxide 24.0, Anion Gap 11, BUN 33 H, Creatinine 1.83 H, Estim Creat Clear Calc 44.17, Est GFR (MDRD) Af Amer 48 L, Est GFR (MDRD) Non-Af 40 L, BUN/Creatinine Ratio 18.0, Glucose 131 H, Calcium 8.2 L 11/19/20 13:35: Total Bilirubin 0.50, Direct Bilirubin 0.16, AST 94 H, ALT 63 H, Alkaline Phosphatase 54, Total Protein 7.7, Albumin 3.3, Globulin 4.4 H 11/19/20 17:13: D-Dimer Quant (PE/DVT) 0.94 H* 11/20/20 05:40: WBC 4.1 L, RBC 5.20, Hgb 15.1, Hct 45.6, MCV 87.7, MCH 29.0, MCHC 33.1, RDW Std Deviation 43.1, RDW Coeff of Pascale 13.3, Plt Count 179, MPV 10.4, Immature Gran % (Auto) 0.700, Neut % (Auto) 76.0 H, Lymph % (Auto) 13.5 L, [place] % (Auto) 9.6, Eos % (Auto) 0.0, Baso % (Auto) 0.2, Absolute Neuts (auto) 3.1, Absolute Lymphs (auto) 0.55 L, Nucleated RBC % 0, Diff Path Review July11/20/20 05:40: Sodium 139, Potassium 4.1, Chloride 108 H, Carbon Dioxide 22.0, Anion Gap 9, BUN 24 H, Creatinine 1.01, Estim Creat Clear Calc 80.03, Est GFR (MDRD) Af Amer 95, Est GFR (MDRD) Non-Af 79, BUN/Creatinine Ratio 23.8 H, Glucose 158 H, Calcium 7.8 L, Phosphorus 2.9, Magnesium 2.3, Total Bilirubin 0.40, AST 78 H, ALT 59, Alkaline Phosphatase 49, Total Protein 6.7, Albumin 2.7 L, Globulin 4.0, Albumin/Globulin Ratio 0.7 L, TSH 0.69 Micro: Microbiology 11/19/20 15:37 Nasal Secretion SARS-CoV-2 Antigen (Rapid) - Final SARS-CoV-2 (COVID 19) Radiography Diagnostic Testing: Radiology Impression Chest X-Ray 11/19/20 13:29 IMPRESSION: Multilobar infiltrates favoring pneumonia, including viral causes. Electronically Signed: Car Gomez MD ([place]) at 14:18 EDT , Service support , Brain CT 11/19/20 14:10 IMPRESSION: Normal unenhanced CT scan of the brain. Electronically Signed: Car Gomez MD ([place]) at 15:02 EDT , Service support , Chest CTA 11/20/20 06:56 IMPRESSION: No demonstrated pulmonary embolism or arterial dissection. Bilateral patchy groundglass densities and patchy infiltrates. Mild effusions at the lung bases. Electronically Signed: Christiano Grace DO at 9:01 EDT Tel [phone], Service support , Physical Exam Const alert, oriented x3 and no apparent distress Constitutional Narrative: Older white male sitting the chair at the bedside, therapy services is currently working with the patient, on air Vo, nontoxic and in no distress General Appearance: cooperative Exam Limitations: no limitations HEENT normocephalic, head/scalp atraumatic, hearing grossly normal bilaterally and moist oral mucous membranes Head and Scalp: normocephalic Resp normal respiratory effort, no retractions, no use of accessory muscles and clear to auscultation bilaterally Resp Narrative: Diffusely diminished but clear Auscultation: Negative for crackles, rales, rhonchi or wheezes Cardio regular rate, regular rhythm, S1 normal heart sound, S2 normal heart sound, no murmurs, no rub, no gallops, no clicks and no JVD GI normal to inspection, nondistended, normoactive bowel sounds, soft to palpation, non-tender and non-distended Extremity no clubbing, cyanosis or edema Peripheral Pulses: Yes pulses 2+ throughout Skin no rashes or lesions noted, no wounds, skin turgor normal, no jaundice, no petechiae and no mottling Skin Narrative: Skin hypersensitivity has resolved Neuro oriented x3, moves all extremities and no focal motor deficits Neuro Narrative: Analyzed weakness and fatigue but no focal deficits Sensorium / Orientation: awake and alert Speech: speech normal Assessment & Plan Assessment/Plan (1) COVID-19: (2) Acute respiratory failure with hypoxia: (3) RAYNE (acute kidney injury): (4) Hypokalemia: (5) Transaminitis: PLAN: Acute hypoxic respiratory failure secondary to COVID-19 -Onset date of symptoms approximately 11/12/2020 which would require quarantine until 12/02/2020 -Acute decompensation overnight with increasing oxygen requirements -Now on air Vo at 60 L/min with an FiO2 of 88%--> SPO2 is 96 to 100% on air Vo -Wean oxygen as able -We did discuss the potential need for intubation depending on how he does clinically -Patient is agreeable if needed -Remdesivir is unavailable at this time -Per the son the patient patient has had symptoms for approximately 7 days at this time and would qualify for remdesivir if available -If remdesivir does become available and patient is still within the 10-day window we will initiate this -Continue Decadron day 1 of 10 -Continue supportive care - has been admitted with Covid overnight as well -CTA of the chest negative for PE but does show patchy bilateral groundglass opacities consistent with COVID-19 D-dimer elevation -CTA was able to be performed this morning and was negative for pulmonary embolism RAYNE secondary to dehydration -Resolved -We will continue IV fluids until p.o. intake has improved -Hold home meloxicam Transaminitis -Likely related to acute Covid infection -Improved in the last 24 hours -Continue to trend Hyperglycemia -Monitor and if sugars trend up on fasting blood work will check hemoglobin A1c and likely start sliding scale -Patient has not diabetic at baseline Hypertension -Continue amlodipine but hold nifedipine as this is duplicate therapy -Monitor blood pressures BPH -Continue finasteride and afluzosin Skin hypersensitivity/neuropathy -Skin hypersensitivity has resolved but neuropathy persistent has been a chronic problem -Continue to hold cyclobenzaprine -Continue amitriptyline 25 mg twice daily -As needed opiates available -Patient has outpatient follow-up scheduled for neurology Obesity -BMI is 31.9 -Complicates overall treatment, prognosis, and outcomes -Recommend weight loss DVT prophylaxis -Lovenox 40 mg twice daily -SCDs CODE STATUS -Full code-verified in the emergency department Charges/Coding Visit Charges Inpatient E&M: 91352 Subs Hosp L2
[2020-11-20] MEDS: Polyethylene Glycol 3350 17 GM PACKET PO (11:54)
[2020-11-20] MEDS: Enoxaparin 40 MG/0.4 ML Syringe SC ×2 (11:55→22:13)
[2020-11-20] MEDS: Tamsulosin HCl 0.4 MG Capsule PO (11:56)
[2020-11-20] MEDS: Finasteride 5 MG Tablet PO (11:56)
[2020-11-20] MEDS: Famotidine 20 MG Tablet PO (11:56)
[2020-11-20] MEDS: Amitriptyline 25 MG Tablet PO ×2 (11:56→22:12)
[2020-11-20] MEDS: dexAMETHasone 2 MG TABLET 6 MG PO (11:56)
[2020-11-20] MEDS: amLODIPine 10 MG Tablet PO (22:12)
[2020-11-21] VITALS (41 sets, daily range): BP systolic 94–200; BP diastolic 66–164; PULSE 72–98; RESP 14–84; TEMP 36.7–38.7; O2SAT 87–99
[2020-11-21 05:47] LABS: Absolute Lymphocyte Count 0.99 X10^3/uL (0.83-4.51); Absolute Neutrophil Count 6.3 X10^3/uL (2.0-7.7); Basophil# 0.01 X10^3/uL; Basophil% 0.1 % (0-1); Hematocrit 48.4 % (40-54); Hemoglobin 15.6 g/dL (13.0-16.5); Lymphocyte # 0.99 X10^3/ul (0.83-4.51); Lymphocyte % 12.5 % (19-41); Mean Corp Hgb Conc 32.2 g/dL (32-36); Mean Corpuscular Hgb 28.9 pg (27.0-32.0); Mean Corpuscular Volume 89.6 fL (80-94); Mean Platelet Vol. 10.2 fl (6.2-12.0); Monocyte# 0.61 X10^3/uL; Monocyte% 7.7 % (0-10); NRBC Flagged by Analyzer 0 % (0-5); Neutrophil # 6.29 X10^3/uL (2.7-7.7); Neutrophil % 79.4 % (47-70); Platelet Count 223 K/mm3 (150-450); RBC Distribution Width CV 13.4 % (11.6-14.6); RBC Distribution Width SD 44.3 fl (35.1-43.9); White Blood Count 7.9 K/mm3 (4.4-11.0)
[2020-11-21 06:10] LABS: Anion Gap 5 (5-15); BUN 22 mg/dL (7-18); BUN/Creat Ratio 22.7 RATIO (10-20); Calcium,Total 8.5 mg/dL (8.5-10.1); Chloride 106 mmol/L (98-107); Creatinine, Serum 0.97 mg/dL (0.70-1.30); EST Glomerular Filtration Rate 82 mL/min (>60); Est Glom Filt Rate - Afr Amer 100 mL/min (>60); Estimated Creatinine Clearance 83.33 ml/min; Glucose 148 mg/dL (74-106); Sodium Level 139 mmol/L (136-145)
[2020-11-21] MEDS: Tamsulosin HCl 0.4 MG Capsule PO (08:33)
[2020-11-21] MEDS: Famotidine 20 MG Tablet PO (08:33)
[2020-11-21] MEDS: Enoxaparin 40 MG/0.4 ML Syringe SC ×2 (08:33→21:27)
[2020-11-21] MEDS: Finasteride 5 MG Tablet PO (08:34)
[2020-11-21] MEDS: Amitriptyline 25 MG Tablet PO ×2 (08:34→21:27)
[2020-11-21] MEDS: Polyethylene Glycol 3350 17 GM PACKET PO (08:34)
--- NOTE | 2020-11-21 09:55 | PN.CC_ITS ---
Assessment & Plan Assessment/Plan (1) Acute respiratory failure with hypoxia: (2) COVID-19: PLAN: RECOMMENDATIONS: 1. Continue to wean FiO2 to maintain oxygen saturations at or above 90%. 2. Continue Decadron to complete 10-day treatment course. 3. Continue twice daily Lovenox. 4. Possible initiation of remdesivir today if supply arrives 5. Avoid continuous IV fluids. Lasix as tolerated by labs IMPRESSIONS: 1. Acute hypoxemic respiratory failure secondary to COVID-19 pneumonia The patient is unvaccinated male who presented to the hospital with progressive respiratory symptoms and was subsequently found to be positive for coronavirus. He has multiple sick contacts at home. Plan to continue current supportive measures including heated high flow oxygen with a goal to maintain oxygen saturations at or above 90%. Continue Decadron to complete 10-day treatment course. CTA chest showed no evidence for pulmonary embolism. Therefore, twice daily Lovenox will be continued. Patient did have some mild effusions noted on CT of the chest. Will attempt diuresis as tolerated 2. Acute kidney injury Likely prerenal in etiology. Creatinine has normalized with volume expansion. Avoid continuous fluids. Possible Lasix administration tomorrow. Continue to monitor urine output. No current indication for renal replacement therapy. 3. Obesity/BPH/hypertension Complicates care, management, recovery and prognosis. Continue home medications as indicated. This note was generated with [employer] dictation software. It may contain incorrect words, spelling, and punctuation that were not noted in checking the note before signing. Subjective Subjective Patient did okay overnight. Patient was able to tolerate BiPAP, but reported significant dry mouth. No chest pain, nausea or vomiting has been reported. Patient reports he is subjectively unchanged compared to previous. Objective Data Objective Data Vital Signs: Vital Signs Temp Pulse Resp BP Pulse Ox 37.2 C 83 23 H 112/85 H 94 11/21/20 09:00 11/21/20 09:42 11/21/20 09:42 11/21/20 09:00 11/21/20 09:42 Oxygen Flow Rate (L/min) 60 Oxygen Delivery Method Airvo Weight: 106.413 kg Body Mass Index (BMI) 31.8 Intake & Output: Intake and Output for Last 24 Hours 11/19/20 11/20/20 11/21/20 23:59 23:59 23:59 Intake Total 1395 / 1645 2545.17 / 2905.17 360 / 360 Output Total 1650 / 1850 1000 / 1000 Balance 1395 / 1345 895.17 / 1055.17 -640 / -640 Lab / Micro Data Result Diagrams: 11/21/20 05:30 11/21/20 05:30 Labs: Laboratory Results - last 24 hr 11/21/20 05:30: WBC 7.9, RBC 5.40, Hgb 15.6, Hct 48.4, MCV 89.6, MCH 28.9, MCHC 32.2, RDW Std Deviation 44.3 H, RDW Coeff of Pascale 13.4, Plt Count 223, MPV 10.2, Immature Gran % (Auto) 0.300, Neut % (Auto) 79.4 H, Lymph % (Auto) 12.5 L, [place] % (Auto) 7.7, Eos % (Auto) 0.0, Baso % (Auto) 0.1, Absolute Neuts (auto) 6.3, Absolute Lymphs (auto) 0.99, Nucleated RBC % 0 11/21/20 05:30: Sodium 139, Potassium 4.0, Chloride 106, Carbon Dioxide 28.0, Anion Gap 5, BUN 22 H, Creatinine 0.97, Estim Creat Clear Calc 83.33, Est GFR (MDRD) Af Amer 100, Est GFR (MDRD) Non-Af 82, BUN/Creatinine Ratio 22.7 H, Glucose 148 H, Calcium 8.5 Micro: Microbiology 11/19/20 15:37 Nasal Secretion SARS-CoV-2 Antigen (Rapid) - Final SARS-CoV-2 (COVID 19) Physical Exam Const alert, oriented x3 and no apparent distress General Appearance: cooperative and on BiPAP Nutritional Appearance: obese HEENT normocephalic, head/scalp atraumatic and moist oral mucous membranes Eyes PERRL, EOMs intact bilaterally and conjunctivae normal Neck supple General: trachea midline Chest inspection of chest normal Chest: symmetrical chest wall rise; Negative for crepitus Resp no use of accessory muscles Auscultation: diminished lung sounds; Negative for rales, rhonchi or wheezes Cardio regular rate, regular rhythm, no murmurs, no rub and no gallops GI normal to inspection, nondistended, normoactive bowel sounds Extremity no clubbing, cyanosis or edema Skin no rashes or lesions noted Neuro moves all extremities and no focal motor deficits Psych cooperative and affect normal Charges/Coding Visit Charges Inpatient E&M: 34981 Subs Hosp L3
[2020-11-21] MEDS: Lactated Ringers 1,000 ML 70 ML IV (10:12)
--- NOTE | 2020-11-21 10:58 | PCM.PN.HOSP ---
Subjective Subjective Patient reports that he is having pretty significant anxiety and is wondering if there is something we can give him to help with that. He states that his shortness of breath is more noticeable with exertion. His appetite is still not great. We discussed that I would order some as needed Ativan but he would need to ask for it if he wanted to use it. Objective Data Objective Data Vital Signs: Vital Signs Temp Pulse Resp BP Pulse Ox 98.5 F 98 18 131/75 H 95 11/21/20 10:00 11/21/20 10:00 11/21/20 10:00 11/21/20 10:00 11/21/20 10:00 Oxygen Flow Rate (L/min) 60 Oxygen Delivery Method Airvo Weight: 106.413 kg Body Mass Index (BMI) 31.8 Intake & Output: Intake and Output for Last 24 Hours 11/19/20 11/20/20 11/21/20 23:59 23:59 23:59 Intake Total 1395 / 1645 2545.17 / 2905.17 1301.5 / 1301.5 Output Total 1650 / 1850 1000 / 1000 Balance 1395 / 1345 895.17 / 1055.17 301.5 / 301.5 Lab / Micro Data Result Diagrams: 11/21/20 05:30 11/21/20 05:30 Labs: Laboratory Results - last 24 hr 11/21/20 05:30: WBC 7.9, RBC 5.40, Hgb 15.6, Hct 48.4, MCV 89.6, MCH 28.9, MCHC 32.2, RDW Std Deviation 44.3 H, RDW Coeff of Pascale 13.4, Plt Count 223, MPV 10.2, Immature Gran % (Auto) 0.300, Neut % (Auto) 79.4 H, Lymph % (Auto) 12.5 L, [place] % (Auto) 7.7, Eos % (Auto) 0.0, Baso % (Auto) 0.1, Absolute Neuts (auto) 6.3, Absolute Lymphs (auto) 0.99, Nucleated RBC % 0 11/21/20 05:30: Sodium 139, Potassium 4.0, Chloride 106, Carbon Dioxide 28.0, Anion Gap 5, BUN 22 H, Creatinine 0.97, Estim Creat Clear Calc 83.33, Est GFR (MDRD) Af Amer 100, Est GFR (MDRD) Non-Af 82, BUN/Creatinine Ratio 22.7 H, Glucose 148 H, Calcium 8.5 Micro: Microbiology 11/19/20 15:37 Nasal Secretion SARS-CoV-2 Antigen (Rapid) - Final SARS-CoV-2 (COVID 19) Physical Exam Const alert, oriented x3 and no apparent distress Constitutional Narrative: Upper middle-aged white male sitting up in a chair, appears mildly anxious but nontoxic. Mild dyspnea with conversation General Appearance: cooperative Exam Limitations: no limitations HEENT normocephalic, head/scalp atraumatic, hearing grossly normal bilaterally and moist oral mucous membranes HEENT Narrative: Mallampati 2-3, no thrush noted Head and Scalp: normocephalic Resp normal respiratory effort, no retractions, no use of accessory muscles and clear to auscultation bilaterally Resp Narrative: Diminished diffusely but clear no adventitious sounds noted Auscultation: Negative for crackles, rales, rhonchi or wheezes Cardio regular rate, regular rhythm, S1 normal heart sound, S2 normal heart sound, no murmurs, no rub, no gallops, no clicks and no JVD GI normal to inspection, nondistended, normoactive bowel sounds, soft to palpation, non-tender and non-distended Extremity no clubbing, cyanosis or edema Neuro oriented x3, moves all extremities and no focal motor deficits Sensorium / Orientation: awake and alert Speech: speech normal Psych Psych Narrative: Mild pressured speech Mood & Affect: anxious Assessment & Plan Assessment/Plan (1) COVID-19: (2) Acute respiratory failure with hypoxia: (3) RAYNE (acute kidney injury): (4) Hypokalemia: (5) Transaminitis: PLAN: Acute hypoxic respiratory failure secondary to COVID-19 -Onset date of symptoms approximately 11/12/2020 which would require quarantine until 12/02/2020 -Acute decompensation overnight with increasing oxygen requirements -Now on air Vo at 60 L/min with an FiO2 of 88%--> SPO2 is 96 to 100% on air Vo -Wean oxygen as able -We did discuss the potential need for intubation depending on how he does clinically -Patient is agreeable if needed -Remdesivir is now available. Start today--> day 1 of 5 -Monitor lab work as ordered -Continue Decadron day 3 of 10 -Continue supportive care - is in PCU for Covid as well -CTA of the chest negative for PE but does show patchy bilateral groundglass opacities consistent with COVID-19 D-dimer elevation -CTA was able to be performed this morning and was negative for pulmonary embolism RAYNE secondary to dehydration -Resolved -Hold home meloxicam -We will Hep-Lock IV fluids today Transaminitis -Likely related to acute Covid infection -Improved in the last 24 hours -Continue to trend Hyperglycemia secondary to steroid use -Monitor -Patient has not diabetic at baseline Hypertension -Continue amlodipine but hold nifedipine as this is duplicate therapy -Monitor blood pressures BPH -Continue finasteride and afluzosin Skin hypersensitivity/neuropathy -Skin hypersensitivity has resolved but 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 every 8 hours as needed -Discussed with the patient he is aware that he will have to ask for it if it is needed DVT prophylaxis -Lovenox 40 mg twice daily -SCDs CODE STATUS -Full code-verified in the emergency department Charges/Coding Visit Charges Inpatient E&M: 17765 Subs Hosp L2
[2020-11-21] MEDS: Furosemide 20 MG/2 ML VIAL IV (12:18)
--- NOTE | 2020-11-21 12:30 | CASEMGMT ---
RN JAME [employer] CM to room to meet with patient for initial transition planning/care coordination assessment. SADE KILGORE introduced self and role at [facility]. Pt voices understanding and consents to assessment at this time. Pt resting in bed in no distress at this time. Pt is A/O at this time and answers all questions appropriately. Care providers, pharmacy, and demographics verified/updated at this time. PCP: Dr Roosevelt Henao Specialists: Has an initial appt w/a neurologist in [place] next week that he plans to cancel d/t COVID. Preferred Pharmacy: [facility]. Insurance:[employer] [facility] Prescription Benefit: Yes Living Will/HPOA: States does not have LW or HCPOA. Interested in more information but states does not want to talk with SW at this time to complete paperwork. Provided information on advanced directives and given Social Service rac card with number to call if chooses in the future to utilize [facility] social work for advanced directive completion. Educated patient that, if patient so chooses, can come back to [facility] and meet with a SW as an outpatient to complete health care advanced directives after he is out of COVID precautions. Patient expresses understanding. LNOK: , Brittnee. 4 kids: 3 sons, 1 daughter. Living Arrangements: Lives w/his and 2 younger sons live w/them. Pt independent prior to recent illness w/COVID. is also admitted @ [facility] w/COVID. Sons have been instructed to quarantine x 14 days. Pt states they have a supportive family and friends who can help to bring groceries/supplies. Transportation: Pt states drives self and states no transportation concerns at this time. and sons also drive. DME: Pt uses no DME to ambulate. Has a pulse ox @ home. Pt aware he may need O2 @ discharge. Discussed options of DME companies. Pt states he wishes to use what his uses. HHC/SNF: No hx of SNF. Pt states he thinks he has had HHC in the past. Pt states he may be interested in HHC @ d/c. Pt wishes to return home and states has no concerns with going home at time of discharge. CM to follow for home oxygen needs and any further discharge planning/needs. Pt voices no further concerns/needs at this time. Advised pt to ask for CM if any further questions/concerns/needs arise. Voices understanding. PLAN: Home. CM to follow for any Home Oxygen needs @ d/c and possible HHC Israel GIANG RN CM
[2020-11-21] MEDS: dexAMETHasone 2 MG TABLET 6 MG PO (12:31)
[2020-11-21] MEDS: oxyCODONE 5 MG Tablet PO (12:32)
[2020-11-21 13:11] LABS: Bedside Glucose 156 mg/dL (70-110)
[2020-11-21 14:19] LABS: Pathologist Review Reviewed
[2020-11-21] MEDS: Furosemide 40 MG/4 ML Vial IV (17:12)
[2020-11-21] MEDS: LORazepam 1 MG Tablet PO ×2 (19:16→20:25)
--- NOTE | 2020-11-21 20:22 | CPS ---
Patient not tolerating BiPAP very much tonight. Ripped off mask and broke the connecting adapter. Patient complains of SOB associated with the BiPAP. For this reason patient was given a new mask and placed on AVAPS to hopefully allow him to tolerate BiPAP therapy better.
[2020-11-21] MEDS: amLODIPine 10 MG Tablet PO (21:27)
--- NOTE | 2020-11-21 22:10 | NURSING ---
pt getting more anxious and restless, dr condon called to bedside along with respiratory, pt agreed to being intubated. dr condon gave orders for etomidate and succinycholine . dr condon intubated 7.5 @25 lip, pt very restless fighting the vent, dr condon said to max fentanyl and propofol until pt is calmed down. og put down with out difficulty. connected to LIS wall suction. bilat upper arm restraints placed for pt safety.
[2020-11-21] MEDS: Haloperidol Lactate 5 MG/ML Vial 2 MG IV (22:20)
[2020-11-21] MEDS: Etomidate 20 MG/10 ML Vial IV (22:55)
[2020-11-21] MEDS: Succinylcholine Chloride 200 MG/10 ML Vial 100 MG IV (22:59)
--- NOTE | 2020-11-21 23:04 | RAD_ITS ---
STUDY: X-RAY CHEST REASON FOR EXAM: Male, 65 years old. ETT placement TECHNIQUE: Single frontal view of the chest. COMPARISON: 11/19/2020 FINDINGS: Nasogastric tube tip below the LEFT hemidiaphragm. EKG leads artifacts. Endotracheal tube with the tip approximately 5.8 cm superior to the level the emma. The cardiac silhouette is within normal limits in size for portable AP technique. Aortic calcifications. There are degenerative changes present. There is low lung volumes. There is no pneumothorax or pleural effusion identified. There is bilateral pulmonary infiltrates are present. RAD/Chest 1 View (Portable) IMPRESSION: Support tubes and lines as discussed above. Again noted bilateral pulmonary infiltrates. Increase in RIGHT lung base. Electronically Signed: Luis Fernando Lopez MD at 0:54 EDT Tel , Service support ,
--- NOTE | 2020-11-21 23:11 | PCM.PN.BLA ---
Progress Note Intubation Indication: Acute respiratory failure Oral consent was obtained from patient since it was an emergency. The patient was placed in supine position. Preoxygenated sedation via noninvasive pressure ventilation that he was initially on and then ambu bagging. The patient had continuous cardiac as well as pulse oximetry monitoring during the procedure. Procedure sedation was provided by the administration of etomidate and succinylcholine. Glidescope laryngoscopy was then performed using a MAC 4 blade, which revealed a grade 2 view. A 7.5 mm endotracheal tube was visualized advancing between the cords to the level of 26 cm at the lip. The stylette was then removed and discarded. Tube placement was confirmed by fogging in the tube. Colorimetric change was visualized on the CO2 meter. The tube was pulled back to 25 cm to ensure bilateral breath sounds. The cuff was then inflated and the tube secured using a commercially available device. A good pulse oximetry waveform was seen on the monitor throughout the procedure. A portable chest x-ray has been ordered to confirm appropriate placement. The patient tolerated the procedure well. Procedures Hospitalists Procedures: [id number] Insert Emergency Airway
[2020-11-21] MEDS: Propofol 10MG/Ml 1,000 MG/100 ML Bottle 6.4 MG CONT INF (23:15)
--- NOTE | 2020-11-21 23:15 | RAD_ITS ---
STUDY: X-RAY - ABDOMEN/PELVIS REASON FOR EXAM: Male, 65 years old. OG placement TECHNIQUE: Single AP view of the abdomen / pelvis. COMPARISON: None. FINDINGS: Please see dedicated chest radiograph performed the same time for chest findings. Only the upper abdomen was imaged on this study. There is a nonobstructive bowel gas pattern within the visualized upper aspects of the abdomen. There is a nasogastric tube with the tip projecting over the topography of the stomach. No free air identified within the visualized aspects of the abdomen. RAD/Abdomen Single View (Portable) IMPRESSION: Nasogastric tube the tip projecting over the topography of the stomach. Electronically Signed: Luis Fernando Lopez MD at 0:55 EDT Tel , Service support ,
[2020-11-22] VITALS (36 sets, daily range): BP systolic 92–129; BP diastolic 66–93; PULSE 61–89; RESP 14–25; TEMP 36.1–38.4; O2SAT 88–96
[2020-11-22] MEDS: Chlorhexidine 15 ML PO ×3 (01:05→21:25)
[2020-11-22] MEDS: Propofol 10MG/Ml 1,000 MG/100 ML Bottle 16 MG CONT INF (01:41)
[2020-11-22 01:56] LABS: Allen Test Positive; Base Excess -1 mmol/L (-2 to +2); Bicarbonate 23.1 mmol/L (22-26); Blood Gas Specimen Type ART; FI02 100; Mode AC; O2 Delivery Device Adult Vent; PEEP 10; PO2 71 mmHG (75-100); RR 14; SITE R Radial; SO2 95 % (95-99); Total Carbon Dioxide 24 mmol/L; Vt 450; pCO2 32.9 mmHg (35-45); pH 7.45 (7.35-7.45)
--- NOTE | 2020-11-22 01:57 | PCM.HOSP.N ---
Hospitalist Note Contacted by Pasquale OCONNOR that xray is showing ET tube 5.3 cm above the emma. after discussion with Dr. Chriss Giordano RT was advised to advance the ET 2 cm for optimal positioning.
--- NOTE | 2020-11-22 02:07 | NURSING ---
Pt is a pt in PCU, i called down to the 's nurse and notified her that we just intubated the pt and if she thought it was appropriate to let the know. The Rn said that she will notify the in the am. has a dgt on her contact list but not sure if it is david dgt or not, so we will wait til morning to notify family
[2020-11-22] MEDS: CHLORHEXIDINE GLUC 2% CLOTH 1 EACH TOWELETTE TOPICAL (03:00)
[2020-11-22 05:21] LABS: Absolute Lymphocyte Count 0.71 X10^3/uL (0.83-4.51); Absolute Neutrophil Count 6.3 X10^3/uL (2.0-7.7); Basophil# 0.01 X10^3/uL; Basophil% 0.1 % (0-1); Hematocrit 43.4 % (40-54); Lymphocyte # 0.71 X10^3/ul (0.83-4.51); Lymphocyte % 9.2 % (19-41); Mean Corp Hgb Conc 32.3 g/dL (32-36); Mean Corpuscular Volume 89.9 fL (80-94); Mean Platelet Vol. 10.1 fl (6.2-12.0); Monocyte# 0.61 X10^3/uL; Monocyte% 7.9 % (0-10); NRBC Flagged by Analyzer 0 % (0-5); Neutrophil # 6.31 X10^3/uL (2.7-7.7); Neutrophil % 82.1 % (47-70); Platelet Count 211 K/mm3 (150-450); RBC Distribution Width CV 13.4 % (11.6-14.6); RBC Distribution Width SD 44.3 fl (35.1-43.9); Red Blood Count 4.83 M/mm3 (4.6-6.2); White Blood Count 7.7 K/mm3 (4.4-11.0)
[2020-11-22 05:33] LABS: Anion Gap 8 (5-15); BUN 26 mg/dL (7-18); BUN/Creat Ratio 26.3 RATIO (10-20); Chloride 107 mmol/L (98-107); Creatinine, Serum 0.99 mg/dL (0.70-1.30); EST Glomerular Filtration Rate 81 mL/min (>60); Est Glom Filt Rate - Afr Amer 98 mL/min (>60); Estimated Creatinine Clearance 81.65 ml/min; Glucose 124 mg/dL (74-106); Potassium 3.7 mmol/L (3.5-5.1); Sodium Level 139 mmol/L (136-145)
--- NOTE | 2020-11-22 06:32 | NURSING ---
attempted to obtain sputum sample 3 times with resp and unable too, will keep trying
--- NOTE | 2020-11-22 08:18 | PN.CC_ITS ---
Assessment & Plan Assessment/Plan (1) Acute respiratory failure with hypoxia: (2) COVID-19: PLAN: RECOMMENDATIONS: 1. Continue to wean FiO2 to maintain oxygen saturations at or above 90%. 2. Continue remdesivir for 5 days and Decadron to complete 10-day treatment course. 3. Continue twice daily Lovenox. 4. Wean FiO2 as tolerated 5. Avoid continuous IV fluids. Lasix as tolerated by labs IMPRESSIONS: 1. Acute hypoxemic respiratory failure secondary to COVID-19 pneumonia The patient is unvaccinated male who presented to the hospital with progressive respiratory symptoms and was subsequently found to be positive for c oronavirus. He has multiple sick contacts at home. Plan to continue current supportive measures including heated high flow oxygen with a goal to maintain oxygen saturations at or above 90%. Patient currently on remdesivir and Decadron. CTA chest showed no evidence for pulmonary embolism. Therefore, twice daily Lovenox will be continued. Patient did have some mild effusions noted on CT of the chest. Will attempt diuresis as tolerated 2. Acute kidney injury Likely prerenal in etiology. Creatinine has normalized with volume expansion. Avoid continuous fluids. Lasix challenge today. Continue to monitor urine output. No current indication for renal replacement therapy. 3. Obesity/BPH/hypertension Complicates care, management, recovery and prognosis. Continue home medications as indicated. Okay to initiate tube feeds TIME: 35 minutes critical care time spent addressing patient's acute hypoxic respiratory failure, acute kidney injury, review of all data and collaboration with care team (5:30 AM to 6:30 AM) Subjective Subjective Patient with significant decompensation overnight. Patient reportedly had difficulty tolerating BiPAP and broke several BiPAP masks. Patient culminated in intubation and has had to be increased on PEEP secondary to hypoxia. Patient currently sedated and unable to answer any questions. Objective Data Objective Data Vital Signs: Vital Signs Temp Pulse Resp BP Pulse Ox 37.2 C 68 25 H 97/72 90 11/22/20 07:00 11/22/20 07:15 11/22/20 07:15 11/22/20 07:00 11/22/20 07:15 Oxygen Flow Rate (L/min) 60 Oxygen Delivery Method Mechanical Ventilator Weight: 104 kg Body Mass Index (BMI) 31.8 Intake & Output: Intake and Output for Last 24 Hours 11/20/20 11/21/20 11/22/20 23:59 23:59 23:59 Intake Total 2545.17 / 2905.17 1703.41 / 1712.06 179.05 / 179.05 Output Total 1650 / 1850 2290 / 2290 450 / 450 Balance 895.17 / 1055.17 -586.59 / -577.94 -270.95 / -270.95 Lab / Micro Data Result Diagrams: 11/22/20 05:05 11/22/20 05:05 Labs: Laboratory Results - last 24 hr 11/20/20 05:40: Diff Path Review Reviewed 11/21/20 11:45: POC Glucose 156 H 11/22/20 05:05: WBC 7.7, RBC 4.83, Hgb 14.0, Hct 43.4, MCV 89.9, MCH 29.0, MCHC 32.3, RDW Std Deviation 44.3 H, RDW Coeff of Pascale 13.4, Plt Count 211, MPV 10.1, Immature Gran % (Auto) 0.700, Neut % (Auto) 82.1 H, Lymph % (Auto) 9.2 L, [place] % (Auto) 7.9, Eos % (Auto) 0.0, Baso % (Auto) 0.1, Absolute Neuts (auto) 6.3, Absolute Lymphs (auto) 0.71 L, Nucleated RBC % 0 11/22/20 05:05: Sodium 139, Potassium 3.7, Chloride 107, Carbon Dioxide 24.0, Anion Gap 8, BUN 26 H, Creatinine 0.99, Estim Creat Clear Calc 81.65, Est GFR (MDRD) Af Amer 98, Est GFR (MDRD) Non-Af 81, BUN/Creatinine Ratio 26.3 H, Glucose 124 H, Calcium 8.0 L Micro: Microbiology 11/19/20 15:37 Nasal Secretion SARS-CoV-2 Antigen (Rapid) - Final SARS-CoV-2 (COVID 19) ABG Data ABG results: ABG 11/22/20 01:48 Specimen Type ART Sample Site R Radial pH 7.45 Bicarbonate Actual 23.1 Total CO2 24 Base Excess -1 O2 Saturation 95 O2 % 100 ABG pCO2 32.9 L ABG pO2 71 L Sean Test Positive Respiration Rate 14 O2 Delivery Device Adult Vent Vent Mode AC Tidal Volume 450 POC PEEP 10 Radiography Diagnostic Testing: Radiology Impression Chest X-Ray 11/21/20 23:04 IMPRESSION: Support tubes and lines as discussed above. Again noted bilateral pulmonary infiltrates. Increase in RIGHT lung base. Electronically Signed: Luis Fernando Lopez MD at 0:54 EDT Tel , Service support , KUB X-Ray 11/21/20 23:15 IMPRESSION: Nasogastric tube the tip projecting over the topography of the stomach. Electronically Signed: Luis Fernando Lopez MD at 0:55 EDT Tel , Service support , Physical Exam Const no apparent distress Constitutional Narrative: Fair vent synchrony noted. RASS -2. General Appearance: cooperative, intubated and patient mechanically ventilated Nutritional Appearance: obese HEENT normocephalic, head/scalp atraumatic and moist oral mucous membranes Eyes PERRL, EOMs intact bilaterally and conjunctivae normal Neck supple General: trachea midline Chest inspection of chest normal Chest: symmetrical chest wall rise; Negative for crepitus Resp no use of accessory muscles Auscultation: rales, wheezes and diminished lung sounds; Negative for rhonchi Cardio regular rate, regular rhythm, no murmurs, no rub and no gallops GI normal to inspection, nondistended, normoactive bowel sounds Extremity no clubbing, cyanosis or edema Skin no rashes or lesions noted Neuro moves all extremities and no focal motor deficits Psych cooperative and affect normal Charges/Coding Procedures Hospitalists Procedures: 21765 Critial Care 1st Hr
[2020-11-22] MEDS: Propofol 10MG/Ml 1,000 MG/100 ML Bottle 12.8 MG CONT INF (08:22)
[2020-11-22] MEDS: Polyethylene Glycol 3350 17 GM PACKET PO (09:17)
[2020-11-22] MEDS: Furosemide 40 MG/4 ML Vial IV (09:17)
[2020-11-22] MEDS: Tamsulosin HCl 0.4 MG Capsule PO (09:17)
[2020-11-22] MEDS: dexAMETHasone 2 MG TABLET 6 MG PO (09:17)
[2020-11-22] MEDS: Enoxaparin 40 MG/0.4 ML Syringe SC ×2 (09:17→21:25)
[2020-11-22] MEDS: Amitriptyline 25 MG Tablet PO ×2 (09:17→21:25)
[2020-11-22] MEDS: Finasteride 5 MG Tablet PO (09:18)
[2020-11-22] MEDS: Famotidine 20 MG Tablet PO (09:18)
[2020-11-22] MEDS: Famotidine 20 MG Tablet GT ×2 (10:10→21:25)
--- NOTE | 2020-11-22 12:12 | PN.HOSP_ITS ---
Subjective Subjective Had to be intubated overnight secondary to an inability to tolerate BiPAP. Currently sedated Objective Data Objective Data Vital Signs: Vital Signs Temp Pulse Resp BP Pulse Ox 99.1 F 69 24 H 108/77 94 11/22/20 11:00 11/22/20 11:36 11/22/20 11:00 11/22/20 11:00 11/22/20 11:00 Oxygen Flow Rate (L/min) 60 Oxygen Delivery Method Mechanical Ventilator Weight: 229 lb 4.492 oz Body Mass Index (BMI) 31.8 Intake & Output: Intake and Output for Last 24 Hours 11/21/20 11/22/20 11/23/20 03:59 03:59 03:59 Intake Total 2655.17 / 2655.17 1430.06 / 1456.06 442.64 / 442.64 Output Total 1550 / 1550 2090 / 2090 700 / 700 Balance 1105.17 / 1105.17 -659.94 / -633.94 -257.36 / -257.36 Lab / Micro Data Result Diagrams: 11/22/20 05:05 11/22/20 05:05 Labs: Laboratory Results - last 24 hr 11/20/20 05:40: Diff Path Review Reviewed 11/21/20 11:45: POC Glucose 156 H 11/22/20 05:05: WBC 7.7, RBC 4.83, Hgb 14.0, Hct 43.4, MCV 89.9, MCH 29.0, MCHC 32.3, RDW Std Deviation 44.3 H, RDW Coeff of Pascale 13.4, Plt Count 211, MPV 10.1, Immature Gran % (Auto) 0.700, Neut % (Auto) 82.1 H, Lymph % (Auto) 9.2 L, [place] % (Auto) 7.9, Eos % (Auto) 0.0, Baso % (Auto) 0.1, Absolute Neuts (auto) 6.3, Absolute Lymphs (auto) 0.71 L, Nucleated RBC % 0 11/22/20 05:05: Sodium 139, Potassium 3.7, Chloride 107, Carbon Dioxide 24.0, Anion Gap 8, BUN 26 H, Creatinine 0.99, Estim Creat Clear Calc 81.65, Est GFR (MDRD) Af Amer 98, Est GFR (MDRD) Non-Af 81, BUN/Creatinine Ratio 26.3 H, Glucose 124 H, Calcium 8.0 L Micro: Microbiology 11/19/20 15:37 Nasal Secretion SARS-CoV-2 Antigen (Rapid) - Final SARS-CoV-2 (COVID 19) ABG Data ABG results: ABG 11/22/20 01:48 Specimen Type ART Sample Site R Radial pH 7.45 Bicarbonate Actual 23.1 Total CO2 24 Base Excess -1 O2 Saturation 95 O2 % 100 ABG pCO2 32.9 L ABG pO2 71 L Sean Test Positive Respiration Rate 14 O2 Delivery Device Adult Vent Vent Mode AC Tidal Volume 450 POC PEEP 10 Radiography Diagnostic Testing: Radiology Impression Chest X-Ray 11/21/20 23:04 IMPRESSION: Support tubes and lines as discussed above. Again noted bilateral pulmonary infiltrates. Increase in RIGHT lung base. Electronically Signed: Luis Fernando Lopez MD at 0:54 EDT Tel , Service support , KUB X-Ray 11/21/20 23:15 IMPRESSION: Nasogastric tube the tip projecting over the topography of the stomach. Electronically Signed: Luis Fernando Lopez MD at 0:55 EDT Tel , Service support , Physical Exam Const General Appearance: intubated and patient mechanically ventilated HEENT normocephalic Eyes PERRL, EOMs intact bilaterally and conjunctivae normal Neck supple and no JVD Resp normal respiratory effort, no retractions and no use of accessory muscles Auscultation: wheezes; Negative for crackles, rales or rhonchi Cardio regular rate, regular rhythm, S1 normal heart sound, S2 normal heart sound and no murmurs GI soft to palpation, non-tender and non-distended; Negative for hepatosplenomegaly Extremity no clubbing, cyanosis or edema Skin no rashes or lesions noted Neuro Sensorium / Orientation: sedated on vent Psych Appearance: intubated Assessment & Plan Assessment/Plan (1) COVID-19: (2) Acute respiratory failure with hypoxia: (3) RAYNE (acute kidney injury): (4) Hypokalemia: (5) Transaminitis: PLAN: 1. Acute hypoxic respiratory failure secondary to COVID-19 pneumonia/RAYNE/transaminitis -CTA of the chest was negative for PE -Intubated overnight for respiratory failure secondary to inability to tolerate the BiPAP -Continue with remdesivir and Decadron -Appreciate training coordinator assistance -Continue to monitor renal as well as LFTs secondary to remdesivir use 2. HTN/HLD/obesity -Blood pressure stable, continue with Norvasc, will plan to discontinue nifedipine on discharge -Once extubated will have discussions on lifestyle modifications for weight loss -BMI of 31.9 3. BPH -Stable -Continue with finasteride and F with Zosyn 4. Skin hypersensitivity and neuropathy with anxiety -Continue with amitriptyline -Given his respiratory status, will hold his Flexeril -He does have Ativan as needed DVT: Lovenox Charges/Coding Visit Charges Inpatient E&M: 50685 Subs Hosp L2
[2020-11-22] MEDS: Vital AF 1.2 Cal Liquid 1,000 ML 70 ML GT (14:00)
--- NOTE | 2020-11-22 16:18 | CHAPLAIN ---
Type of Pastoral Visit ___ Initial Visit ___ Follow-up Visit ___ On-call Visit ___ General Patient Visit ___ Spiritual Assessment ___ Family Conference ___ Bereavement ___ Rapid Response ___ Code Blue _x__ Other (describe below) Pastoral Care Referral From ___ Patient _x__ Family ___ Nurse ___ Physician ___ Mold Capper ___ Anatomic Pathology Assistant ___ Other (describe below) Sacrament/Intervention ___ Active listening ___ Anointing ___ Pentecostalism ___ Bereavement ___ Communion ___ Christie exploration ___ ___ Life review _x__ Prayer ___ Reconciliation ___ Sacrament of Sick _x__ Supportive presence ___ Wedding ___ Other (describe below) Pastoral Comments a family member called to living skills advisor's office asking for prayer support and possible presence for the patient; pt has been put on ventilator today and unable to talk; this living skills advisor stood at doorway in [place] and offered prayer support, wrote in his daily log about the same
[2020-11-22] MEDS: Propofol 10MG/Ml 1,000 MG/100 ML Bottle 9.6 MG CONT INF (17:38)
--- NOTE | 2020-11-22 19:40 | NURSING ---
fentanyl was running @100 when i got on shift. The mar did not reflect it so the old bag of fentanyl was wasted and a new bag was hung. verified and wasted with Felicity Lal RN
[2020-11-22] MEDS: amLODIPine 10 MG Tablet PO (21:25)
[2020-11-22] MEDS: 0.9% Saline Lock 10 ML Syringe IV (21:26)
[2020-11-23] VITALS (31 sets, daily range): BP systolic 97–125; BP diastolic 66–86; PULSE 60–90; RESP 12–25; TEMP 36.1–37.3; O2SAT 86–100
[2020-11-23] MEDS: Propofol 10MG/Ml 1,000 MG/100 ML Bottle 9.6 MG CONT INF
--- NOTE | 2020-11-23 01:05 | CPS ---
Patient transitioned to APRV/Bilevel mode on ventilator. Earlier discussion with in case patient oxygenation not improved on AC/VC mode. ANESTHETIST was given settings to place patient on during that call at start of shift. Will monitor patient for spontaneous breaths over ventilator to make sure ventilation is taking place. RN decreasing sedation to awakening patient. Settings at this time: Phigh 26 Plow 0 Thigh 4.5 Tlow 0.5 RR12 100%.
[2020-11-23] MEDS: CHLORHEXIDINE GLUC 2% CLOTH 1 EACH TOWELETTE TOPICAL (05:00)
[2020-11-23 05:13] LABS: Absolute Lymphocyte Count 0.49 X10^3/uL (0.83-4.51); Absolute Neutrophil Count 6.7 X10^3/uL (2.0-7.7); Basophil# 0.02 X10^3/uL; Basophil% 0.3 % (0-1); Hematocrit 44.4 % (40-54); Hemoglobin 14.2 g/dL (13.0-16.5); Lymphocyte # 0.49 X10^3/ul (0.83-4.51); Lymphocyte % 6.2 % (19-41); Mean Corpuscular Volume 90.6 fL (80-94); Mean Platelet Vol. 9.9 fl (6.2-12.0); Monocyte# 0.53 X10^3/uL; Monocyte% 6.7 % (0-10); NRBC Flagged by Analyzer 0 % (0-5); Neutrophil # 6.72 X10^3/uL (2.7-7.7); POSITIVE DIFFERENTIAL YES; Platelet Count 236 K/mm3 (150-450); RBC Distribution Width CV 13.3 % (11.6-14.6); RBC Distribution Width SD 44.7 fl (35.1-43.9); White Blood Count 7.9 K/mm3 (4.4-11.0)
[2020-11-23 05:14] LABS: Differential Indicated SCAN CRITERIA MET
[2020-11-23 05:29] LABS: Anion Gap 6 (5-15); BUN 32 mg/dL (7-18); Chloride 108 mmol/L (98-107); Creatinine, Serum 0.84 mg/dL (0.70-1.30); EST Glomerular Filtration Rate 97 mL/min (>60); Est Glom Filt Rate - Afr Amer 117 mL/min (>60); Estimated Creatinine Clearance 96.23 ml/min; Glucose 162 mg/dL (74-106); Sodium Level 140 mmol/L (136-145)
[2020-11-23 05:33] LABS: Differential Comment SCANNED
[2020-11-23 06:01] LABS: Base Excess -1 mmol/L (-2 to +2); Bicarbonate 23.8 mmol/L (22-26); Blood Gas Specimen Type ART; FI02 100; Mode BiLevel; O2 Delivery Device Adult Vent; PO2 60 mmHG (75-100); RR 12; SITE R Radial; SO2 91 % (95-99); Total Carbon Dioxide 25 mmol/L; pCO2 38.3 mmHg (35-45)
[2020-11-23] MEDS: Furosemide 40 MG/4 ML Vial IV (06:11)
[2020-11-23] MEDS: Tamsulosin HCl 0.4 MG Capsule PO (08:09)
[2020-11-23] MEDS: Finasteride 5 MG Tablet PO (08:09)
[2020-11-23] MEDS: Famotidine 20 MG Tablet GT ×2 (08:09→22:06)
[2020-11-23] MEDS: dexAMETHasone 2 MG TABLET 6 MG PO (08:10)
[2020-11-23] MEDS: Amitriptyline 25 MG Tablet PO ×2 (08:10→22:05)
[2020-11-23] MEDS: Chlorhexidine 15 ML PO ×2 (08:11→22:06)
[2020-11-23] MEDS: TITRATION PARAMETER CHANGE 1 EACH IV (08:11)
[2020-11-23] MEDS: Polyethylene Glycol 3350 17 GM PACKET PO (08:11)
[2020-11-23] MEDS: Enoxaparin 40 MG/0.4 ML Syringe SC ×2 (08:12→22:04)
[2020-11-23] MEDS: 0.9% Saline Lock 10 ML Syringe IV ×2 (08:13→16:46)
--- NOTE | 2020-11-23 08:25 | PN.CC_ITS ---
Assessment & Plan Assessment/Plan (1) Acute respiratory failure with hypoxia: (2) COVID-19: PLAN: RECOMMENDATIONS: 1. Morning ABG while on APRV. Continue to wean FiO2 to maintain oxygen s aturations at or above 90%. 2. Continue remdesivir for 5 days and Decadron to complete 10-day treatment course. 3. Continue twice daily Lovenox. 4. Wean FiO2 as tolerated 5. Lasix as tolerated by labs IMPRESSIONS: 1. Acute hypoxemic respiratory failure secondary to COVID-19 pneumonia The patient is unvaccinated male who presented to the hospital with progressive respiratory symptoms and was subsequently found to be positive for coronavirus. He has multiple sick contacts at home. Plan to continue current supportive measures including heated high flow oxygen with a goal to maintain oxygen saturations at or above 90%. Patient currently on remdesivir and Decadron. Patient transition to APRV overnight. Continue to wean FiO2 as tolerated. Patient will need an ABG daily to ensure adequate ventilation. 2. Acute kidney injury Resolved. Likely prerenal in etiology. Creatinine has normalized with v olume expansion. Avoid continuous fluids. Lasix challenge today. Continue to monitor urine output. No current indication for renal replacement therapy. 3. Obesity/BPH/hypertension Complicates care, management, recovery and prognosis. Continue home medications as indicated. Continue tube feeds. Monitor for bowel movements. TIME: 33 minutes critical care time spent addressing patient's acute hypoxic respiratory failure, acute kidney injury, review of all data and collaboration with care team (7 AM to 8 AM) Subjective Subjective Patient with continued worsening of oxygenation overnight requiring transition to APRV. Nursing reports significant desaturation with dyssynchrony. Patient has been tolerating tube feeds. Last documented bowel movement was November 21. Objective Data Objective Data Vital Signs: Vital Signs Temp Pulse Resp BP Pulse Ox 36.6 C 69 12 118/73 87 11/23/20 06:00 11/23/20 06:59 11/23/20 06:59 11/23/20 06:00 11/23/20 06:59 Oxygen Flow Rate (L/min) 100 Oxygen Delivery Method Mechanical Ventilator Weight: 105.2 kg Body Mass Index (BMI) 31.8 Intake & Output: Intake and Output for Last 24 Hours 11/21/20 11/22/20 11/23/20 23:59 23:59 23:59 Intake Total 1703.41 / 1712.06 772.51 / 854.61 793.38 / 793.38 Output Total 2290 / 2290 1150 / 1550 400 / 400 Balance -586.59 / -577.94 -377.49 / -695.39 393.38 / 393.38 Lab / Micro Data Result Diagrams: 11/23/20 05:10 11/23/20 05:10 Labs: Laboratory Results - last 24 hr 11/23/20 05:10: WBC 7.9, RBC 4.90, Hgb 14.2, Hct 44.4, MCV 90.6, MCH 29.0, MCHC 32.0, RDW Std Deviation 44.7 H, RDW Coeff of Pascale 13.3, Plt Count 236, MPV 9.9, Immature Gran % (Auto) 1.800 H, Neut % (Auto) 85.0 H, Lymph % (Auto) 6.2 L, [place] % (Auto) 6.7, Eos % (Auto) 0.0, Baso % (Auto) 0.3, Absolute Neuts (auto) 6.7, Absolute Lymphs (auto) 0.49 L, Nucleated RBC % 0, Differential Comment SCANNED 11/23/20 05:10: Sodium 140, Potassium 4.0, Chloride 108 H, Carbon Dioxide 26.0, Anion Gap 6, BUN 32 H, Creatinine 0.84, Estim Creat Clear Calc 96.23, Est GFR (MDRD) Af Amer 117, Est GFR (MDRD) Non-Af 97, BUN/Creatinine Ratio 38.0 H, Glucose 162 H, Calcium 8.0 L Micro: Microbiology 11/22/20 07:20 Sputum, Induced/Lukens Gram Stain - Final 11/19/20 15:37 Nasal Secretion SARS-CoV-2 Antigen (Rapid) - Final SARS-CoV-2 (COVID 19) ABG Data ABG results: ABG 11/23/20 05:53 Specimen Type ART Sample Site R Radial pH 7.40 Bicarbonate Actual 23.8 Total CO2 25 Base Excess -1 O2 Saturation 91 L O2 % 100 ABG pCO2 38.3 ABG pO2 60 L Sean Test N/A Respiration Rate 12 O2 Delivery Device Adult Vent Vent Mode BiLevel Clinical Comments phigh26 thigh4.5 Physical Exam Const no apparent distress Constitutional Narrative: Fair vent synchrony noted. RASS -2. General Appearance: cooperative, intubated and patient mechanically ventilated Nutritional Appearance: obese HEENT normocephalic, head/scalp atraumatic and moist oral mucous membranes Eyes PERRL, EOMs intact bilaterally and conjunctivae normal Neck supple General: trachea midline Chest inspection of chest normal Chest: symmetrical chest wall rise; Negative for crepitus Resp no use of accessory muscles Auscultation: diminished lung sounds; Negative for rales, rhonchi or wheezes Cardio regular rate, regular rhythm, no murmurs, no rub and no gallops GI normal to inspection, nondistended, normoactive bowel sounds Extremity General Extremity: edema bilateral (Trace) lower extremity; Negative for clubbing or cyanosis Skin no rashes or lesions noted Neuro moves all extremities and no focal motor deficits Psych cooperative and affect normal Charges/Coding Procedures Hospitalists Procedures: [id number] Critial Care 1st Hr
[2020-11-23 10:07] LABS: AST(SGOT) 60 U/L (15-37); Alanine Aminotransfer ALT/SGPT 71 U/L (16-61); Albumin, Serum 2.4 g/dL (3.2-5.0); Alkaline Phosphatase 59 U/L (45-117); Bilirubin, Direct 0.26 mg/dL (0.00-0.30); Globulin 4.1 g/dL (2.2-4.2); Protein, Total 6.5 g/dL (6.4-8.2)
--- NOTE | 2020-11-23 10:08 | PN.HOSP_ITS ---
Subjective Subjective Had issues overnight with oxygenation per consultant technology, settings were adjusted. He remains intubated Objective Data Objective Data Vital Signs: Vital Signs Temp Pulse Resp BP Pulse Ox 97.8 F 70 12 118/73 87 11/23/20 06:00 11/23/20 07:00 11/23/20 06:59 11/23/20 06:00 11/23/20 06:59 Oxygen Flow Rate (L/min) 100 Oxygen Delivery Method Mechanical Ventilator Weight: 231 lb 14.821 oz Body Mass Index (BMI) 31.8 Intake & Output: Intake and Output for Last 24 Hours 11/22/20 11/23/20 11/24/20 03:59 03:59 03:59 Intake Total 1430.06 / 1456.06 820.46 / 893.66 658.78 / 658.78 Output Total 2089 / 2089 1550 / 1550 Balance -659.94 / -633.94 -729.54 / -656.34 658.78 / 658.78 Lab / Micro Data Result Diagrams: 11/23/20 05:10 11/23/20 05:10 Labs: Laboratory Results - last 24 hr 11/23/20 05:10: WBC 7.9, RBC 4.90, Hgb 14.2, Hct 44.4, MCV 90.6, MCH 29.0, MCHC 32.0, RDW Std Deviation 44.7 H, RDW Coeff of Pascale 13.3, Plt Count 236, MPV 9.9, Immature Gran % (Auto) 1.800 H, Neut % (Auto) 85.0 H, Lymph % (Auto) 6.2 L, [place] % (Auto) 6.7, Eos % (Auto) 0.0, Baso % (Auto) 0.3, Absolute Neuts (auto) 6.7, Absolute Lymphs (auto) 0.49 L, Nucleated RBC % 0, Differential Comment SCANNED 11/23/20 05:10: Sodium 140, Potassium 4.0, Chloride 108 H, Carbon Dioxide 26.0, Anion Gap 6, BUN 32 H, Creatinine 0.84, Estim Creat Clear Calc 96.23, Est GFR ( MDRD) Af Amer 117, Est GFR (MDRD) Non-Af 97, BUN/Creatinine Ratio 38.0 H, Glucose 162 H, Calcium 8.0 L 09/01/21 05:10: Total Bilirubin 0.60, Direct Bilirubin 0.26, AST 60 H, ALT 71 H, Alkaline Phosphatase 59, Total Protein 6.5, Albumin 2.4 L, Globulin 4.1 Micro: Microbiology 11/22/20 07:20 Sputum, Induced/Lukens Gram Stain - Final 11/19/20 15:37 Nasal Secretion SARS-CoV-2 Antigen (Rapid) - Final SARS-CoV-2 (COVID 19) ABG Data ABG results: ABG 11/23/20 05:53 Specimen Type ART Sample Site R Radial pH 7.40 Bicarbonate Actual 23.8 Total CO2 25 Base Excess -1 O2 Saturation 91 L O2 % 100 ABG pCO2 38.3 ABG pO2 60 L Sean Test N/A Respiration Rate 12 O2 Delivery Device Adult Vent Vent Mode BiLevel Clinical Comments phigh26 thigh4.5 Physical Exam Const General Appearance: intubated and patient mechanically ventilated HEENT normocephalic and moist oral mucous membranes Eyes PERRL, EOMs intact bilaterally and conjunctivae normal Neck supple and no JVD Resp normal respiratory effort, no retractions and no use of accessory muscles Auscultation: Negative for crackles, rales, rhonchi or wheezes Cardio regular rate, regular rhythm, S1 normal heart sound, S2 normal heart sound and no murmurs GI soft to palpation, non-tender and non-distended; Negative for hepatosplenomegaly Extremity no clubbing, cyanosis or edema Skin no rashes or lesions noted Neuro Sensorium / Orientation: sedated on vent Psych Appearance: intubated Assessment & Plan Assessment/Plan (1) COVID-19: (2) Acute respiratory failure with hypoxia: (3) RAYNE (acute kidney injury): (4) Hypokalemia: (5) Transaminitis: PLAN: 1. Acute hypoxic respiratory failure secondary to COVID-19 pneumonia/RAYNE/transaminitis -CTA of the chest was negative for PE -Intubated 11/21/2020 for respiratory failure secondary to inability to tolerate the BiPAP -Continue with remdesivir and Decadron -Appreciate consultant technology assistance -Continue to monitor renal as well as LFTs secondary to remdesivir use 2. HTN/HLD/obesity -Blood pressure stable, continue with Norvasc, will plan to discontinue nifed ipine on discharge -Once extubated will have discussions on lifestyle modifications for weight loss -BMI of 31.9 3. BPH -Stable -Continue with finasteride and F with Zosyn 4. Skin hypersensitivity and neuropathy with anxiety -Continue with amitriptyline -Given his respiratory status, will hold his Flexeril -He does have Ativan as needed DVT: Lovenox Charges/Coding Visit Charges Inpatient E&M: 23274 Subs Hosp L2
[2020-11-23] MEDS: Propofol 10MG/Ml 1,000 MG/100 ML Bottle 6.3 MG CONT INF (11:45)
--- NOTE | 2020-11-23 13:15 | NURSING ---
while is present in pt room, pt became agitated, even though appropriately restrained attempting to pull OET out. pt repositioned, sedation briefly increased. after 5min pt again calm and cooperative. disc events w/pts , questions answered, reassurance given.
--- NOTE | 2020-11-23 13:21 | CASEMGMT ---
SADE KILGORE NOTE: Pt screened with [facility] Palliative Care Screening Tool for strata 3, pt did not meet criteria. Israel LOBON RN CM
[2020-11-23] MEDS: Senna/Docusate Sodium 1 Tablet 2 TABLET PO (16:44)
[2020-11-23] MEDS: Vital AF 1.2 Cal Liquid 1,000 ML 50 ML GT (16:47)
[2020-11-23] MEDS: amLODIPine 10 MG Tablet PO (22:05)
[2020-11-24] VITALS (32 sets, daily range): BP systolic 87–129; BP diastolic 61–80; PULSE 64–114; RESP 12–39; TEMP 36.7–38.9; O2SAT 89–95
[2020-11-24] MEDS: Propofol 10MG/Ml 1,000 MG/100 ML Bottle 9.5 MG CONT INF
[2020-11-24] MEDS: CHLORHEXIDINE GLUC 2% CLOTH 1 EACH TOWELETTE TOPICAL (00:30)
[2020-11-24] MEDS: Senna/Docusate Sodium 1 Tablet 2 TABLET PO ×2 (03:49→21:17)
[2020-11-24 04:52] LABS: Absolute Neutrophil Count 9.8 X10^3/uL (2.0-7.7); Basophil# 0.03 X10^3/uL; Basophil% 0.3 % (0-1); Eosinophil# 0.01 X10^3/uL; Eosinophils% 0.1 % (0-5); Hematocrit 44.1 % (40-54); Hemoglobin 14.4 g/dL (13.0-16.5); Lymphocyte % 5.3 % (19-41); Mean Corp Hgb Conc 32.7 g/dL (32-36); Mean Corpuscular Hgb 29.8 pg (27.0-32.0); Mean Corpuscular Volume 91.1 fL (80-94); Mean Platelet Vol. 10.5 fl (6.2-12.0); Monocyte# 0.42 X10^3/uL; Monocyte% 3.7 % (0-10); NRBC Flagged by Analyzer 0 % (0-5); Neutrophil # 9.81 X10^3/uL (2.7-7.7); Neutrophil % 87.5 % (47-70); POSITIVE DIFFERENTIAL YES; Platelet Count 284 K/mm3 (150-450); RBC Distribution Width CV 13.4 % (11.6-14.6); RBC Distribution Width SD 45.4 fl (35.1-43.9); Red Blood Count 4.84 M/mm3 (4.6-6.2); White Blood Count 11.2 K/mm3 (4.4-11.0)
[2020-11-24 05:08] LABS: Differential Indicated SCAN CRITERIA MET
[2020-11-24 05:13] LABS: ALB/GLOB Ratio 0.6 RATIO (0.9-2.4); AST(SGOT) 42 U/L (15-37); Alanine Aminotransfer ALT/SGPT 63 U/L (16-61); Albumin, Serum 2.4 g/dL (3.2-5.0); Alkaline Phosphatase 61 U/L (45-117); Anion Gap 5 (5-15); BUN 31 mg/dL (7-18); BUN/Creat Ratio 37.4 RATIO (10-20); Calcium,Total 7.9 mg/dL (8.5-10.1); Chloride 108 mmol/L (98-107); Creatinine, Serum 0.83 mg/dL (0.70-1.30); EST Glomerular Filtration Rate 99 mL/min (>60); Est Glom Filt Rate - Afr Amer 120 mL/min (>60); Estimated Creatinine Clearance 97.39 ml/min; Globulin 3.9 g/dL (2.2-4.2); Glucose 153 mg/dL (74-106); Potassium 3.6 mmol/L (3.5-5.1); Protein, Total 6.3 g/dL (6.4-8.2); Sodium Level 141 mmol/L (136-145)
[2020-11-24] MEDS: Acetaminophen 325 MG Tablet 650 MG PO (05:18)
[2020-11-24 05:51] LABS: Base Excess -2 mmol/L (-2 to +2); Bicarbonate 22.8 mmol/L (22-26); Blood Gas Specimen Type ART; FI02 65; Mode BiLevel; O2 Delivery Device Adult Vent; PO2 58 mmHG (75-100); RR 12; SITE R Radial; SO2 91 % (95-99); Total Carbon Dioxide 24 mmol/L; pCO2 34.5 mmHg (35-45); pH 7.43 (7.35-7.45)
[2020-11-24 06:09] LABS: Differential Comment SCANNED
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
[2020-11-24] MEDS: LORazepam 2 MG/ML Syringe 1 MG IV (08:20)
[2020-11-24] MEDS: Chlorhexidine 15 ML PO ×2 (08:24→21:19)
[2020-11-24] MEDS: Potassium Chloride Oral Soln 20 MEQ/15 ML UDC 40 MEQ GT (08:27)
[2020-11-24] MEDS: Tamsulosin HCl 0.4 MG Capsule PO (08:28)
[2020-11-24] MEDS: dexAMETHasone 2 MG TABLET 6 MG PO (08:28)
[2020-11-24] MEDS: QUEtiapine 25 MG Tablet 50 MG PO ×2 (08:29→21:17)
[2020-11-24] MEDS: Finasteride 5 MG Tablet PO (08:29)
[2020-11-24] MEDS: Enoxaparin 40 MG/0.4 ML Syringe SC ×2 (08:29→21:19)
[2020-11-24] MEDS: Famotidine 20 MG Tablet GT ×2 (08:29→21:17)
[2020-11-24] MEDS: Acetaminophen 650 MG/20 ML UDC PO (08:46)
[2020-11-24] MEDS: Furosemide 40 MG/4 ML Vial IV (08:47)
[2020-11-24] MEDS: Polyethylene Glycol 3350 17 GM PACKET PO (08:55)
[2020-11-24] MEDS: Amitriptyline 25 MG Tablet PO ×2 (08:55→21:17)
[2020-11-24] MEDS: Propofol 10MG/Ml 1,000 MG/100 ML Bottle 18.9 MG CONT INF (09:30)
[2020-11-24] MEDS: TITRATION PARAMETER CHANGE 1 EACH IV (09:37)
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
[2020-11-24] MEDS: Bisacodyl 10 MG Suppository RC (10:03)
[2020-11-24] MEDS: Magnesium Citrate 300 ML 150 ML GT (10:03)
--- NOTE | 2020-11-24 10:23 | PN.HOSP_ITS ---
Subjective Subjective Became agitated overnight and attempted self extubated. Seroquel was added this morning by the intensivistDoing well, states that she has a little bit improvement in her breathing Objective Data Objective Data Vital Signs: Vital Signs Temp Pulse Resp BP Pulse Ox 100.5 F H 94 33 H 105/80 92 11/24/20 07:00 11/24/20 10:18 11/24/20 10:18 11/24/20 07:00 11/24/20 10:18 Oxygen Flow Rate (L/min) 100 Oxygen Delivery Method Mechanical Ventilator Weight: 234 lb 12.677 oz Body Mass Index (BMI) 31.8 Intake & Output: Intake and Output for Last 24 Hours 11/23/20 11/24/20 11/25/20 03:59 03:59 03:59 Intake Total 820.46 / 893.66 2751.36 / 2767.66 240.67 / 240.67 Output Total 1550 / 1550 1665 / 1665 Balance -729.54 / -656.34 1086.36 / 1102.66 240.67 / 240.67 Lab / Micro Data Result Diagrams: 11/24/20 04:15 11/24/20 04:15 Labs: Laboratory Results - last 24 hr 11/24/20 04:15: WBC 11.2 H, RBC 4.84, Hgb 14.4, Hct 44.1, MCV 91.1, MCH 29.8, MCHC 32.7, RDW Std Deviation 45.4 H, RDW Coeff of Pascale 13.4, Plt Count 284, MPV 10.5, Immature Gran % (Auto) 3.100 H, Neut % (Auto) 87.5 H, Lymph % (Auto) 5.3 L , Ray % (Auto) 3.7, Eos % (Auto) 0.1, Baso % (Auto) 0.3, Absolute Neuts (auto) 9.8 H, Absolute Lymphs (auto) 0.60 L, Nucleated RBC % 0, Differential Comment S CANNED 11/24/20 04:15: Sodium 141, Potassium 3.6, Chloride 108 H, Carbon Dioxide 28.0, Anion Gap 5, BUN 31 H, Creatinine 0.83, Estim Creat Clear Calc 97.39, Est GFR (MDRD) Af Amer 120, Est GFR (MDRD) Non-Af 99, BUN/Creatinine Ratio 37.4 H, Glucose 153 H, Calcium 7.9 L, Total Bilirubin 0.50, AST 42 H, ALT 63 H, Alkaline Phosphatase 61, Total Protein 6.3 L, Albumin 2.4 L, Globulin 3.9, Albumin/Globulin Ratio 0.6 L Micro: Microbiology 11/22/20 07:20 Sputum, Induced/Lukens Gram Stain - Final 11/22/20 07:20 Sputum, Induced/Lukens Respiratory Culture - Preliminary Alpha Hemolytic Streptococcus 11/19/20 15:37 Nasal Secretion SARS-CoV-2 Antigen (Rapid) - Final SARS-CoV-2 (COVID 19) ABG Data ABG results: ABG 11/24/20 05:45 Specimen Type ART Sample Site R Radial pH 7.43 Bicarbonate Actual 22.8 Total CO2 24 Base Excess -2 O2 Saturation 91 L O2 % 65 ABG pCO2 34.5 L ABG pO2 58 L Sean Test N/A Respiration Rate 12 O2 Delivery Device Adult Vent Vent Mode BiLevel Physical Exam Const General Appearance: intubated and patient mechanically ventilated HEENT normocephalic and moist oral mucous membranes Eyes PERRL, EOMs intact bilaterally and conjunctivae normal Neck no JVD Resp normal respiratory effort, no retractions and no use of accessory muscles Auscultation: Negative for crackles, rales, rhonchi or wheezes Cardio regular rate, regular rhythm, S1 normal heart sound, S2 normal heart sound and no murmurs GI soft to palpation, non-tender and non-distended; Negative for hepatosplenomegaly Extremity no clubbing, cyanosis or edema Skin no rashes or lesions noted Neuro Sensorium / Orientation: sedated on vent Psych Appearance: intubated Assessment & Plan Assessment/Plan (1) COVID-19: (2) Acute respiratory failure with hypoxia: (3) RAYNE (acute kidney injury): (4) Hypokalemia: (5) Transaminitis: PLAN: 1. Acute hypoxic respiratory failure secondary to COVID-19 pneumonia/RAYNE/transaminitis -CTA of the chest was negative for PE -Intubated 11/21/2020 for respiratory failure secondary to inability to tolerate the BiPAP -Continue with remdesivir and Decadron -Continue Seroquel for agitation while on the vent -Appreciate naval surface fire support planner assistance -Continue to monitor renal as well as LFTs secondary to remdesivir use 2. HTN/HLD/obesity -Blood pressure stable, continue with Norvasc, will plan to discontinue nifedipine on discharge -Once extubated will have discussions on lifestyle modifications for weight loss -BMI of 31.9 3. BPH -Stable -Continue with finasteride and tamsulosin 4. Skin hypersensitivity and neuropathy with anxiety -Continue with amitriptyline -Given his respiratory status, will hold his Flexeril -He does have Ativan as needed DVT: Lovenox Charges/Coding Visit Charges Inpatient E&M: 69769 Subs Hosp L2
--- NOTE | 2020-11-24 11:12 | NURSING ---
1110 C Joann WRAPPING MACHINE HELPER present in pt room, prep for line placement 1115 HR 93, R 25, BP 92/63 74, SpO2 90 1120 HR 92 R 30 BP 99/67 78 spO2 90 procedure begun 1125 HR 93, R 20, BP 95/63 75, SpO2 90 1127 wire in 1130 HR 96, R28, BP 96/68 78 spO2 90, suturing CXR ordered
--- NOTE | 2020-11-24 11:29 | RAD_ITS ---
STUDY: X-RAY CHEST REASON FOR EXAM: Male, 65 years old. Line placement TECHNIQUE: Frontal view of the chest COMPARISON: None. FINDINGS: There is a right-sided central line with its tip in the superior vena cava. There is an endotracheal tube noted with its tip approximately 3 cm above the emma. There is an enteric tube extending below the diaphragm. There are stable patchy airspace opacities bilaterally. There are no pleural effusions. There is no pneumothorax. The heart is normal in size. The visualized osseous structures are within normal limits. RAD/CXR for Line Placement IMPRESSION: Satisfactory position of the support lines and tubes. No pneumothorax. Stable patchy bilateral airspace opacities. Electronically Signed: Torres Winkler MD at 12:29 EDT Tel , Service support ,
--- NOTE | 2020-11-24 12:22 | PCM.OP.BLANK ---
Operative Report Date of Procedure: 11/24/20 Central line placement procedure note Indication: IV access/hemodynamic instability/vasoactive medications Procedure: A time-out was completed to verify correct patient, indication, medication allergies, procedure, coagulation studies, informed consent signed, and equipment needed. The patient was placed in the supine position for a central line placement to the rt IJ vein. The patients rt neck was prepped using chlorhexidine and a full body sterile drape was applied. 1% lidocaine was used to anesthetize the surrounding skin. A 7fr 16 cm blue guard triple lumen catheter introduced into the internal jugular vein using the modified Seldinger technique with the assistance of ultrasound. The catheter was threaded smoothly over the guidewire, the guidewire was removed easily, nonpulsatile blood returned. All ports were aspirated of air and flushed with sterile saline. The catheter was sutured in place and covered with an occlusive dressing impregnated with chlorhexidine. Post-procedure: The patient tolerated the procedure well. Vital signs remained stable. EBL 5 cc. No complications. Chest X Ray ordered to confirm tip placement and the absence of pneumothorax. Procedures Hospitalists Procedures: [id number] Insert Non-tunnel CV Cath
[2020-11-24] MEDS: Propofol 10MG/Ml 1,000 MG/100 ML Bottle 12.6 MG CONT INF ×2 (14:15→18:30)
[2020-11-24] MEDS: Vital AF 1.2 Cal Liquid 1,000 ML 70 ML GT (16:29)
[2020-11-24] MEDS: 0.9% Saline Lock 10 ML Syringe IV ×2 (16:29→21:18)
--- NOTE | 2020-11-24 18:54 | NURSING ---
pts Dtr Haim (BINDERY PRODUCTION MANAGER) states she had concern for alzheimer/dementia type s/s in pt for last several months. Pt's father and grandfather (?) both had this dx.
--- NOTE | 2020-11-24 20:13 | NURSING ---
11/24/2020- Patient's wedding band (gold band) placed in locked drawer at bedside.
[2020-11-24] MEDS: amLODIPine 10 MG Tablet PO (21:17)
[2020-11-25] VITALS (38 sets, daily range): BP systolic 91–122; BP diastolic 64–81; PULSE 67–90; RESP 12–40; TEMP 36.4–38.3; O2SAT 88–97
--- NOTE | 2020-11-25 00:25 | EKG12_ITS ---
Test Reason : RHYTHM CHANGE Blood Pressure : / mmHG Vent. Rate : 081 BPM Atrial Rate : 081 BPM P-R Int : 180 ms QRS Dur : 082 ms QT Int : 360 ms P-R-T Axes : 055 000 058 degrees QTc Int : 418 ms Normal sinus rhythm Nonspecific ST abnormality Abnormal ECG Confirmed by JAMILA LEW, FLORENCIO ([id number]), online content editor ROMIE HAQUE ([id number]) on 11/30/2020 9:43:31 AM Referred By: SAMANTHA BACON Confirmed By:FLORENCIO MARINO MD
[2020-11-25] MEDS: Propofol 10MG/Ml 1,000 MG/100 ML Bottle 12.6 MG CONT INF ×2 (02:27→05:57)
[2020-11-25] MEDS: Acetaminophen 650 MG/20 ML UDC PO (04:23)
[2020-11-25 04:30] LABS: Absolute Lymphocyte Count 0.56 X10^3/uL (0.83-4.51); Absolute Neutrophil Count 11.2 X10^3/uL (2.0-7.7); Basophil# 0.04 X10^3/uL; Basophil% 0.3 % (0-1); Eosinophil# 0.03 X10^3/uL; Eosinophils% 0.2 % (0-5); Hematocrit 43.5 % (40-54); Hemoglobin 13.7 g/dL (13.0-16.5); Lymphocyte # 0.56 X10^3/ul (0.83-4.51); Lymphocyte % 4.4 % (19-41); Mean Corp Hgb Conc 31.5 g/dL (32-36); Mean Corpuscular Hgb 29.4 pg (27.0-32.0); Mean Corpuscular Volume 93.3 fL (80-94); Mean Platelet Vol. 10.1 fl (6.2-12.0); Monocyte% 2.4 % (0-10); NRBC Flagged by Analyzer 0 % (0-5); Neutrophil # 11.19 X10^3/uL (2.7-7.7); Neutrophil % 87.7 % (47-70); POSITIVE DIFFERENTIAL YES; Platelet Count 317 K/mm3 (150-450); RBC Distribution Width CV 13.7 % (11.6-14.6); RBC Distribution Width SD 46.5 fl (35.1-43.9); Red Blood Count 4.66 M/mm3 (4.6-6.2); White Blood Count 12.8 K/mm3 (4.4-11.0)
[2020-11-25 04:53] LABS: Differential Indicated SCAN CRITERIA MET
[2020-11-25 04:57] LABS: ALB/GLOB Ratio 0.5 RATIO (0.9-2.4); AST(SGOT) 38 U/L (15-37); Alanine Aminotransfer ALT/SGPT 61 U/L (16-61); Albumin, Serum 2.1 g/dL (3.2-5.0); Alkaline Phosphatase 63 U/L (45-117); Anion Gap 6 (5-15); BUN 30 mg/dL (7-18); BUN/Creat Ratio 34.2 RATIO (10-20); Calcium,Total 8.2 mg/dL (8.5-10.1); Chloride 109 mmol/L (98-107); Creatinine, Serum 0.88 mg/dL (0.70-1.30); EST Glomerular Filtration Rate 93 mL/min (>60); Est Glom Filt Rate - Afr Amer 112 mL/min (>60); Estimated Creatinine Clearance 91.86 ml/min; Globulin 4.2 g/dL (2.2-4.2); Glucose 171 mg/dL (74-106); Potassium 4.1 mmol/L (3.5-5.1); Protein, Total 6.3 g/dL (6.4-8.2); Sodium Level 141 mmol/L (136-145)
[2020-11-25 05:16] LABS: Differential Comment SCANNED
[2020-11-25 05:41] LABS: Base Excess -1 mmol/L (-2 to +2); Bicarbonate 23.2 mmol/L (22-26); Blood Gas Specimen Type ART; FI02 55; Mode BiLevel; O2 Delivery Device Adult Vent; PO2 55 mmHG (75-100); RR 12; SITE L Radial; SO2 90 % (95-99); Total Carbon Dioxide 24 mmol/L; pCO2 33.7 mmHg (35-45); pH 7.45 (7.35-7.45)
[2020-11-25] MEDS: CHLORHEXIDINE GLUC 2% CLOTH 1 EACH TOWELETTE TOPICAL (06:30)
[2020-11-25] MEDS: Furosemide 40 MG/4 ML Vial IV (06:44)
[2020-11-25] MEDS: Vital AF 1.2 Cal Liquid 1,000 ML 70 ML GT (06:47)
[2020-11-25 07:04] LABS: Magnesium 2.8 mg/dL (1.6-2.6); Phosphorus 2.5 mg/dL (2.5-4.9)
[2020-11-25] MEDS: TITRATION PARAMETER CHANGE 1 EACH IV (07:04)
[2020-11-25] MEDS: Chlorhexidine 15 ML PO ×2 (09:27→20:58)
[2020-11-25] MEDS: dexAMETHasone 2 MG TABLET 6 MG PO (09:28)
[2020-11-25] MEDS: Amitriptyline 25 MG Tablet PO ×2 (09:28→20:53)
[2020-11-25] MEDS: Finasteride 5 MG Tablet PO (09:28)
[2020-11-25] MEDS: QUEtiapine 100 MG Tablet PO ×2 (09:28→20:53)
[2020-11-25] MEDS: Senna/Docusate Sodium 1 Tablet 2 TABLET PO ×2 (09:28→20:52)
[2020-11-25] MEDS: Polyethylene Glycol 3350 17 GM PACKET PO (09:29)
[2020-11-25] MEDS: Enoxaparin 40 MG/0.4 ML Syringe SC ×2 (09:29→20:54)
[2020-11-25] MEDS: Tamsulosin HCl 0.4 MG Capsule PO (09:29)
[2020-11-25] MEDS: Famotidine 20 MG Tablet GT ×2 (09:29→20:53)
--- NOTE | 2020-11-25 10:01 | PN.CC_ITS ---
Assessment & Plan Assessment/Plan (1) Acute respiratory failure with hypoxia: (2) COVID-19: PLAN: RECOMMENDATIONS: 1. Morning ABG while on APRV. Continue to wean FiO2 to maintain oxygen s aturations at or above 90%. 2. To complete Remdesivir today. Continue Decadron to complete 10-day treatment course. 3. Continue twice daily Lovenox. 4. Wean FiO2 as tolerated 5. Lasix as tolerated by labs 6. Aggressive bowel regimen 7. Increase Seroquel 8. Add ceftriaxone IMPRESSIONS: 1. Acute hypoxemic respiratory failure secondary to COVID-19 and pneumococcal pneumonia The patient is unvaccinated male who presented to the hospital with progressive respiratory symptoms and was subsequently found to be positive for coronavirus. He has multiple sick contacts at home. Plan to continue current supportive measures including heated high flow oxygen with a goal to maintain oxygen saturations at or above 90%. Patient currently on remdesivir and Decadron. We will continue with an ABG daily for APRV ventilation. Adequate oxygenation and ventilation with morning ABG. Patient appears to be growing pneumococcus from sputum culture obtained after intubation. Patient will be placed on ceftriaxone. Continue to wean oxygen as tolerated. Diuretics as tolerated. 2. Acute kidney injury Resolved. Likely prerenal in etiology. Creatinine has normalized with volume expansion. Avoid continuous fluids. Lasix challenge today. Continue to monitor urine output. No current indication for renal replacement therapy. 3. Obesity/BPH/hypertension Complicates care, management, recovery and prognosis. Continue home medications as indicated. Continue tube feeds. Monitor for bowel movements. TIME: 40 minutes critical care time spent addressing patient's acute hypoxic respiratory failure, acute kidney injury, review of all data and collaboration with care team (7:30 AM to 9 AM) Subjective Subjective Patient did okay overnight. Patient continues to have intermittent periods of agitation and fever. Patient tolerating tube feeds. Patient did have a bowel movement yesterday. Objective Data Objective Data Vital Signs: Vital Signs Temp Pulse Resp BP Pulse Ox 38.0 C H 90 17 101/75 89 11/25/20 09:00 11/25/20 09:00 11/25/20 09:00 11/25/20 09:00 11/25/20 09:00 Oxygen Flow Rate (L/min) 100 Oxygen Delivery Method Mechanical Ventilator Weight: 107.7 kg Body Mass Index (BMI) 31.8 Intake & Output: Intake and Output for Last 24 Hours 11/23/20 11/24/20 11/25/20 23:59 23:59 23:59 Intake Total 2820.43 / 2832.81 2678.47 / 3231.07 1312.03 / 1312.03 Output Total 1665 / 2065 1455 / 1580 820 / 820 Balance 1155.43 / 767.81 1223.47 / 1651.07 492.03 / 492.03 Lab / Micro Data Result Diagrams: 11/25/20 04:20 11/25/20 04:20 Labs: Laboratory Results - last 24 hr 11/25/20 04:20: WBC 12.8 H, RBC 4.66, Hgb 13.7, Hct 43.5, MCV 93.3, MCH 29.4, MCHC 31.5 L, RDW Std Deviation 46.5 H, RDW Coeff of Pascale 13.7, Plt Count 317, MPV 10.1, Immature Gran % (Auto) 5.000 H, Neut % (Auto) 87.7 H, Lymph % (Auto) 4.4 L , Winston % (Auto) 2.4, Eos % (Auto) 0.2, Baso % (Auto) 0.3, Absolute Neuts (auto) 11.2 H, Absolute Lymphs (auto) 0.56 L, Nucleated RBC % 0, Differential Comment SCANNED 11/25/20 04:20: Sodium 141, Potassium 4.1, Chloride 109 H, Carbon Dioxide 26.0, Anion Gap 6, BUN 30 H, Creatinine 0.88, Estim Creat Clear Calc 91.86, Est GFR (MDRD) Af Amer 112, Est GFR (MDRD) Non-Af 93, BUN/Creatinine Ratio 34.2 H, Glucose 171 H, Calcium 8.2 L, Total Bilirubin 0.60, AST 38 H, ALT 61, Alkaline Phosphatase 63, Total Protein 6.3 L, Albumin 2.1 L, Globulin 4.2, Albumin/Globulin Ratio 0.5 L 11/25/20 04:20: Phosphorus 2.5, Magnesium 2.8 H Micro: Microbiology 11/22/20 07:20 Sputum, Induced/Lukens Gram Stain - Final 11/22/20 07:20 Sputum, Induced/Lukens Respiratory Culture - Preliminary Alpha Hemolytic Streptococcus 11/19/20 15:37 Nasal Secretion SARS-CoV-2 Antigen (Rapid) - Final SARS-CoV-2 (COVID 19) ABG Data ABG results: ABG 11/25/20 05:35 Specimen Type ART Sample Site L Radial pH 7.45 Bicarbonate Actual 23.2 Total CO2 24 Base Excess -1 O2 Saturation 90 L O2 % 55 ABG pCO2 33.7 L ABG pO2 55 L Sean Test N/A Respiration Rate 12 O2 Delivery Device Adult Vent Vent Mode BiLevel Clinical Comments phigh28 thigh4.5 Radiography Diagnostic Testing: Radiology Impression Chest X-Ray 11/24/20 11:29 IMPRESSION: Satisfactory position of the support lines and tubes. No pneumothorax. Stable patchy bilateral airspace opacities. Electronically Signed: Torres Winkler MD at 12:29 EDT Tel , Service support , Physical Exam Const no apparent distress Constitutional Narrative: Fair vent synchrony noted. RASS -2. General Appearance: cooperative, intubated and patient mechanically ventilated Nutritional Appearance: obese HEENT normocephalic, head/scalp atraumatic and moist oral mucous membranes Eyes PERRL, EOMs intact bilaterally and conjunctivae normal Neck supple General: trachea midline Chest inspection of chest normal Chest: symmetrical chest wall rise; Negative for crepitus Resp no use of accessory muscles Auscultation: diminished lung sounds; Negative for rales, rhonchi or wheezes Cardio regular rate, regular rhythm, no murmurs, no rub and no gallops GI normal to inspection, nondistended, normoactive bowel sounds Extremity no clubbing, cyanosis or edema General Extremity: edema bilateral (Trace) lower extremity; Negative for clubbing or cyanosis Skin no rashes or lesions noted Neuro moves all extremities and no focal motor deficits Psych cooperative and affect normal Charges/Coding Procedures Hospitalists Procedures: [id number] Critial Care 1st Hr
--- NOTE | 2020-11-25 10:47 | PN.HOSP_ITS ---
Subjective Subjective Remains intubated and sedated, his agitation has been better controlled with the Seroquel. Objective Data Objective Data Vital Signs: Vital Signs Temp Pulse Resp BP Pulse Ox 100.4 F H 88 30 H 107/73 91 11/25/20 10:00 11/25/20 10:43 11/25/20 10:43 11/25/20 10:00 11/25/20 10:43 Oxygen Flow Rate (L/min) 100 Oxygen Delivery Method Mechanical Ventilator Weight: 237 lb 7.005 oz Body Mass Index (BMI) 31.8 Intake & Output: Intake and Output for Last 24 Hours 11/24/20 11/25/20 11/26/20 03:59 03:59 03:59 Intake Total 2751.36 / 2767.66 3235.67 / 3810.77 712.30 / 712.30 Output Total 1665 / 1665 1180 / 1400 695 / 695 Balance 1086.36 / 1102.66 2055.67 / 2410.77 17.30 / 17.30 Lab / Micro Data Result Diagrams: 11/25/20 04:20 11/25/20 04:20 Labs: Laboratory Results - last 24 hr 11/25/20 04:20: WBC 12.8 H, RBC 4.66, Hgb 13.7, Hct 43.5, MCV 93.3, MCH 29.4, MCHC 31.5 L, RDW Std Deviation 46.5 H, RDW Coeff of Pascale 13.7, Plt Count 317, MPV 10.1, Immature Gran % (Auto) 5.000 H, Neut % (Auto) 87.7 H, Lymph % (Auto) 4.4 L , Powell % (Auto) 2.4, Eos % (Auto) 0.2, Baso % (Auto) 0.3, Absolute Neuts (auto) 11.2 H, Absolute Lymphs (auto) 0.56 L, Nucleated RBC % 0, Differential Comment SCANNED 11/25/20 04:20: Sodium 141, Potassium 4.1, Chloride 109 H, Carbon Dioxide 26.0, Anion Gap 6, BUN 30 H, Creatinine 0.88, Estim Creat Clear Calc 91.86, Est GFR (MDRD) Af Amer 112, Est GFR (MDRD) Non-Af 93, BUN/Creatinine Ratio 34.2 H, Glucose 171 H, Calcium 8.2 L, Total Bilirubin 0.60, AST 38 H, ALT 61, Alkaline Phosphatase 63, Total Protein 6.3 L, Albumin 2.1 L, Globulin 4.2, Albumin/Globulin Ratio 0.5 L 11/25/20 04:20: Phosphorus 2.5, Magnesium 2.8 H Micro: Microbiology 11/22/20 07:20 Sputum, Induced/Lukens Gram Stain - Final 11/22/20 07:20 Sputum, Induced/Lukens Respiratory Culture - Preliminary Alpha Hemolytic Streptococcus 11/19/20 15:37 Nasal Secretion SARS-CoV-2 Antigen (Rapid) - Final SARS-CoV-2 (COVID 19) ABG Data ABG results: ABG 11/25/20 05:35 Specimen Type ART Sample Site L Radial pH 7.45 Bicarbonate Actual 23.2 Total CO2 24 Base Excess -1 O2 Saturation 90 L O2 % 55 ABG pCO2 33.7 L ABG pO2 55 L Sean Test N/A Respiration Rate 12 O2 Delivery Device Adult Vent Vent Mode BiLevel Clinical Comments phigh28 thigh4.5 Radiography Diagnostic Testing: Radiology Impression Chest X-Ray 11/24/20 11:29 IMPRESSION: Satisfactory position of the support lines and tubes. No pneumothorax. Stable patchy bilateral airspace opacities. Electronically Signed: Torres Winkler MD at 12:29 EDT Tel , Service support , Physical Exam Const General Appearance: intubated and patient mechanically ventilated HEENT normocephalic and moist oral mucous membranes Eyes PERRL, EOMs intact bilaterally and conjunctivae normal Neck supple and no JVD Resp normal respiratory effort, no retractions and no use of accessory muscles Auscultation: Negative for crackles, rales, rhonchi or wheezes Cardio regular rate, regular rhythm, S1 normal heart sound, S2 normal heart sound and no murmurs GI soft to palpation, non-tender and non-distended; Negative for hepatosplenomegaly Extremity no clubbing, cyanosis or edema Skin no rashes or lesions noted Neuro Sensorium / Orientation: sedated on vent Psych Appearance: intubated Assessment & Plan Assessment/Plan (1) COVID-19: (2) Acute respiratory failure with hypoxia: (3) RAYNE (acute kidney injury): (4) Hypokalemia: (5) Transaminitis: PLAN: 1. Acute hypoxic respiratory failure secondary to COVID-19 pneumonia/RAYNE/transaminitis -CTA of the chest was negative for PE -Intubated 11/21/2020 for respiratory failure secondary to inability to tolerate the BiPAP -Continue with remdesivir and Decadron -Continue Seroquel for agitation while on the vent -Started on Rocephin for alphahemolytic Streptococcus in his sputum culture -Appreciate family life educator assistance -Continue to monitor renal as well as LFTs secondary to remdesivir use 2. HTN/HLD/obesity -Blood pressure stable, continue with Norvasc, will plan to discontinue nif edipine on discharge -Once extubated will have discussions on lifestyle modifications for weight loss -BMI of 31.9 3. BPH -Stable -Continue with finasteride and tamsulosin 4. Skin hypersensitivity and neuropathy with anxiety -Continue with amitriptyline -Given his respiratory status, will hold his Flexeril -He does have Ativan as needed DVT: Lovenox Charges/Coding Visit Charges Inpatient E&M: 07812 Subs Hosp L2
[2020-11-25] MEDS: Ceftriaxone 1 GM/50 ML BAG IV (11:50)
[2020-11-25] MEDS: Propofol 10MG/Ml 1,000 MG/100 ML Bottle 13 MG CONT INF ×2 (13:00→16:45)
[2020-11-25] MEDS: amLODIPine 10 MG Tablet PO (20:53)
[2020-11-26] VITALS (37 sets, daily range): BP systolic 96–124; BP diastolic 66–79; PULSE 75–104; RESP 13–31; TEMP 36.7–38.7; O2SAT 86–94
[2020-11-26] MEDS: Propofol 10MG/Ml 1,000 MG/100 ML Bottle 13 MG CONT INF ×6 (00:29→23:30)
--- NOTE | 2020-11-26 00:30 | NURSING ---
propofol and fentanyl verified with Kenji STUART
[2020-11-26] MEDS: Vital AF 1.2 Cal Liquid 1,000 ML 70 ML GT ×2 (00:31→18:00)
[2020-11-26] MEDS: CHLORHEXIDINE GLUC 2% CLOTH 1 EACH TOWELETTE TOPICAL (03:42)
[2020-11-26] MEDS: Acetaminophen 650 MG/20 ML UDC PO ×2 (03:43→21:05)
[2020-11-26 04:46] LABS: Base Excess -1 mmol/L (-2 to +2); Bicarbonate 23.5 mmol/L (22-26); Blood Gas Specimen Type ART; FI02 65; Mode BiLevel; O2 Delivery Device Adult Vent; PO2 59 mmHG (75-100); RR 12; SITE R Radial; SO2 92 % (95-99); Total Carbon Dioxide 25 mmol/L; pCO2 34.4 mmHg (35-45); pH 7.44 (7.35-7.45)
[2020-11-26 05:23] LABS: Hematocrit 40.3 % (40-54); Mean Corp Hgb Conc 32.3 g/dL (32-36); Mean Corpuscular Hgb 29.5 pg (27.0-32.0); Mean Corpuscular Volume 91.6 fL (80-94); Mean Platelet Vol. 10.1 fl (6.2-12.0); POSITIVE COUNT YES; POSITIVE DIFFERENTIAL YES; POSITIVE MORPHOLOGY YES; Platelet Count 366 K/mm3 (150-450); RBC Distribution Width CV 13.7 % (11.6-14.6); RBC Distribution Width SD 46.3 fl (35.1-43.9); White Blood Count 14.8 K/mm3 (4.4-11.0)
[2020-11-26 05:34] LABS: Differential Indicated MANUAL DIFF
[2020-11-26 05:43] LABS: Anion Gap 6 (5-15); BUN 30 mg/dL (7-18); BUN/Creat Ratio 36.8 RATIO (10-20); Calcium,Total 8.2 mg/dL (8.5-10.1); Chloride 109 mmol/L (98-107); Creatinine, Serum 0.82 mg/dL (0.70-1.30); EST Glomerular Filtration Rate 101 mL/min (>60); Est Glom Filt Rate - Afr Amer 122 mL/min (>60); Estimated Creatinine Clearance 98.58 ml/min; Glucose 177 mg/dL (74-106); Potassium 3.9 mmol/L (3.5-5.1); Sodium Level 142 mmol/L (136-145)
[2020-11-26 05:46] LABS: Total Cells Counted 100 (MANUAL DIFF)
[2020-11-26 05:49] LABS: Metamyelocyte 2 % (0-1); Myelocyte 2 % (0-0); Neutrophil-Band 4 % (0-5); Neutrophil-Segmented 85 % (47-70)
[2020-11-26 05:50] LABS: Eosinophil 2 % (0-5); Lymphocyte 2 % (19-41); Monocyte 3 % (0-10); Platelet Estimate ADEQUATE (ADEQ); Red Cell Morphology NORM C+C NORMAL (NORM C&C)
[2020-11-26 05:51] LABS: Absolute Neutrophil Count 13.2 X10^3/uL (2.0-7.7); Neutrophil # 13.15 X10^3/uL (2.7-7.7)
[2020-11-26] MEDS: 0.9% Saline Lock 10 ML Syringe IV ×2 (06:07→08:40)
[2020-11-26] MEDS: Potassium Chloride Oral Soln 20 MEQ/15 ML UDC 40 MEQ PO (06:12)
--- NOTE | 2020-11-26 07:48 | PN.CC_ITS ---
Assessment & Plan Assessment/Plan (1) Acute respiratory failure with hypoxia: (2) COVID-19: PLAN: RECOMMENDATIONS: 1. Morning ABG while on APRV. Continue to wean FiO2 to maintain oxygen s aturations at or above 90%. 2. Completed remdesivir. Continue Decadron to complete 10-day treatment course. 3. Continue twice daily Lovenox. 4. Wean FiO2 as tolerated 5. Lasix as tolerated by labs 6. Aggressive bowel regimen 7. Continue Seroquel at current dosing 8. Anticipate at least 7 days of ceftriaxone pending culture results IMPRESSIONS: 1. Acute hypoxemic respiratory failure secondary to COVID-19 and pneumococcal pneumonia The patient is unvaccinated male who presented to the hospital with progressive respiratory symptoms and was subsequently found to be positive for coronavirus. He has multiple sick contacts at home. Plan to continue current supportive measures including heated high flow oxygen with a goal to maintain oxygen saturations at or above 90%. Patient currently on remdesivir and Decadron. We will continue with an ABG daily for APRV ventilation. Adequate oxygenation and ventilation with morning ABG. Patient appears to be growing pneumococcus from sputum culture obtained after intubation. Patient will be continued on ceftriaxone. Continue to wean oxygen as tolerated. Diuretics as tolerated. 2. Acute kidney injury Resolved. Likely prerenal in etiology. Creatinine has normalized with volume expansion. Avoid continuous fluids. Lasix challenge today. Continue to monitor urine output. No current indication for renal replacement therapy. 3. Obesity/BPH/hypertension Complicates care, management, recovery and prognosis. Continue home medications as indicated. Continue tube feeds. Monitor for bowel movements. TIME: 35 minutes critical care time spent addressing patient's acute hypoxic respiratory failure, acute kidney injury, review of all data and collaboration with care team (6:30 AM to 7:30 AM) Subjective Subjective Patient did okay over the night. Patient did have a bowel movement yesterday. Patient has been febrile overnight and oxygen requirements have gone up slightly. Objective Data Objective Data Vital Signs: Vital Signs Temp Pulse Resp BP Pulse Ox 37.9 C H 90 25 H 118/71 94 11/26/20 06:59 11/26/20 07:33 11/26/20 07:33 11/26/20 06:59 11/26/20 07:33 Oxygen Flow Rate (L/min) 100 Oxygen Delivery Method Mechanical Ventilator Weight: 107.048 kg Body Mass Index (BMI) 31.8 Intake & Output: Intake and Output for Last 24 Hours 11/24/20 11/25/20 11/26/20 23:59 23:59 23:59 Intake Total 2678.47 / 3231.07 1984.03 / 2119.03 433.47 / 433.47 Output Total 1455 / 1580 1520 / 1920 400 / 400 Balance 1223.47 / 1651.07 464.03 / 199.03 33.47 / 33.47 Lab / Micro Data Result Diagrams: 11/26/20 05:10 11/26/20 05:10 Labs: Laboratory Results - last 24 hr 11/26/20 05:10: Sodium 142, Potassium 3.9, Chloride 109 H, Carbon Dioxide 27.0, Anion Gap 6, BUN 30 H, Creatinine 0.82, Estim Creat Clear Calc 98.58, Est GFR (MDRD) Af Amer 122, Est GFR (MDRD) Non-Af 101, BUN/Creatinine Ratio 36.8 H, Glucose 177 H, Calcium 8.2 L 11/26/20 05:10: WBC 14.8 H, RBC 4.40 L, Hgb 13.0, Hct 40.3, MCV 91.6, MCH 29.5, MCHC 32.3, RDW Std Deviation 46.3 H, RDW Coeff of Pascale 13.7, Plt Count 366, MPV 10.1, Neut % (Auto) Not Reportable, Absolute Neuts (auto) 13.2 H, Absolute Lymphs (auto) 0.30 L, Total Counted 100, Neutrophils % (Manual) 85 H, Band Neutrophils % 4, Lymphocytes % (Manual) 2 L, Monocytes % (Manual) 3, Eosinophils % (Manual) 2, Metamyelocytes % 2 H, Myelocytes % 2 H, Diff Path Review July, Platelet Estimate ADEQUATE, RBC Morphology NORM C+C Micro: Microbiology 11/22/20 07:20 Sputum, Induced/Lukens Gram Stain - Final 11/22/20 07:20 Sputum, Induced/Lukens Respiratory Culture - Preliminary Alpha Hemolytic Streptococcus 11/19/20 15:37 Nasal Secretion SARS-CoV-2 Antigen (Rapid) - Final SARS-CoV-2 (COVID 19) ABG Data ABG results: ABG 11/26/20 04:41 Specimen Type ART Sample Site R Radial pH 7.44 Bicarbonate Actual 23.5 Total CO2 25 Base Excess -1 O2 Saturation 92 L O2 % 65 ABG pCO2 34.4 L ABG pO2 59 L Sean Test N/A Respiration Rate 12 O2 Delivery Device Adult Vent Vent Mode BiLevel Clinical Comments phigh28 thigh4.5 Physical Exam Const no apparent distress Constitutional Narrative: Fair vent synchrony noted. RASS -3. General Appearance: cooperative, intubated and patient mechanically ventilated Nutritional Appearance: obese HEENT normocephalic, head/scalp atraumatic and moist oral mucous membranes Eyes PERRL, EOMs intact bilaterally and conjunctivae normal Neck supple General: trachea midline Chest inspection of chest normal Chest: symmetrical chest wall rise; Negative for crepitus Resp no use of accessory muscles Auscultation: diminished lung sounds; Negative for rales, rhonchi or wheezes Cardio regular rate, regular rhythm, no murmurs, no rub and no gallops GI normal to inspection, nondistended, normoactive bowel sounds Extremity no clubbing, cyanosis or edema General Extremity: edema bilateral (Trace) lower extremity; Negative for clubbing or cyanosis Skin no rashes or lesions noted Neuro moves all extremities and no focal motor deficits Psych cooperative and affect normal Charges/Coding Procedures Hospitalists Procedures: [id number] Critial Care 1st Hr
[2020-11-26] MEDS: Enoxaparin 40 MG/0.4 ML Syringe SC ×2 (08:39→21:06)
[2020-11-26] MEDS: Senna/Docusate Sodium 1 Tablet 2 TABLET PO ×2 (08:40→21:05)
[2020-11-26] MEDS: QUEtiapine 100 MG Tablet PO ×2 (08:41→21:06)
[2020-11-26] MEDS: Finasteride 5 MG Tablet PO (08:41)
[2020-11-26] MEDS: Amitriptyline 25 MG Tablet PO ×2 (08:42→21:06)
[2020-11-26] MEDS: Polyethylene Glycol 3350 17 GM PACKET PO (08:42)
[2020-11-26] MEDS: Furosemide 40 MG/4 ML Vial IV ×2 (08:42→17:30)
[2020-11-26] MEDS: Tamsulosin HCl 0.4 MG Capsule PO (08:43)
[2020-11-26] MEDS: dexAMETHasone 2 MG TABLET 6 MG PO (08:43)
[2020-11-26] MEDS: Famotidine 20 MG Tablet GT ×2 (08:44→21:06)
[2020-11-26] MEDS: Chlorhexidine 15 ML PO ×2 (08:47→21:04)
--- NOTE | 2020-11-26 10:03 | PCM.PN.HOSP ---
Subjective Subjective No issues overnight, agitation has significantly improved with Seroquel Objective Data Objective Data Vital Signs: Vital Signs Temp Pulse Resp BP Pulse Ox 100.2 F H 90 25 H 118/71 94 11/26/20 06:59 11/26/20 07:33 11/26/20 07:33 11/26/20 06:59 11/26/20 07:33 Oxygen Flow Rate (L/min) 100 Oxygen Delivery Method Mechanical Ventilator Weight: 236 lb Body Mass Index (BMI) 31.8 Intake & Output: Intake and Output for Last 24 Hours 11/25/20 11/26/20 11/27/20 03:59 03:59 03:59 Intake Total 3235.67 / 3810.77 1577.77 / 1587.77 217.00 / 217.00 Output Total 1180 / 1400 1795 / 1795 Balance 2055.67 / 2410.77 -217.23 / -207.23 217.00 / 217.00 Lab / Micro Data Result Diagrams: 11/26/20 05:10 11/26/20 05:10 Labs: Laboratory Results - last 24 hr 11/26/20 05:10: Sodium 142, Potassium 3.9, Chloride 109 H, Carbon Dioxide 27.0, Anion Gap 6, BUN 30 H, Creatinine 0.82, Estim Creat Clear Calc 98.58, Est GFR (MDRD) Af Amer 122, Est GFR (MDRD) Non-Af 101, BUN/Creatinine Ratio 36.8 H, Glucose 177 H, Calcium 8.2 L 11/26/20 05:10: WBC 14.8 H, RBC 4.40 L, Hgb 13.0, Hct 40.3, MCV 91.6, MCH 29.5, MCHC 32.3, RDW Std Deviation 46.3 H, RDW Coeff of Pascale 13.7, Plt Count 366, MPV 10.1, Neut % (Auto) Not Reportable, Absolute Neuts (auto) 13.2 H, Absolute Lymphs (auto) 0.30 L, Total Counted 100, Neutrophils % (Manual) 85 H, Band Neutrophils % 4, Lymphocytes % (Manual) 2 L, Monocytes % (Manual) 3, Eosinophils % (Manual) 2, Metamyelocytes % 2 H, Myelocytes % 2 H, Diff Path Review May foll, Platelet Estimate ADEQUATE, RBC Morphology NORM C+C Micro: Microbiology 11/22/20 07:20 Sputum, Induced/Lukens Gram Stain - Final 11/22/20 07:20 Sputum, Induced/Lukens Respiratory Culture - Preliminary Streptococcus pneumoniae 11/19/20 15:37 Nasal Secretion SARS-CoV-2 Antigen (Rapid) - Final SARS-CoV-2 (COVID 19) ABG Data ABG results: ABG 11/26/20 04:41 Specimen Type ART Sample Site R Radial pH 7.44 Bicarbonate Actual 23.5 Total CO2 25 Base Excess -1 O2 Saturation 92 L O2 % 65 ABG pCO2 34.4 L ABG pO2 59 L Sean Test N/A Respiration Rate 12 O2 Delivery Device Adult Vent Vent Mode BiLevel Clinical Comments phigh28 thigh4.5 Physical Exam Const General Appearance: intubated and patient mechanically ventilated HEENT normocephalic and moist oral mucous membranes Eyes PERRL, EOMs intact bilaterally and conjunctivae normal Neck supple and no JVD Resp normal respiratory effort, no retractions and no use of accessory muscles Auscultation: Negative for crackles, rales, rhonchi or wheezes Cardio regular rate, regular rhythm, S1 normal heart sound, S2 normal heart sound and no murmurs GI soft to palpation, non-tender and non-distended; Negative for hepatosplenomegaly Extremity no clubbing, cyanosis or edema Skin no rashes or lesions noted Neuro Sensorium / Orientation: sedated on vent Psych Appearance: intubated Assessment & Plan Assessment/Plan (1) COVID-19: (2) Acute respiratory failure with hypoxia: (3) RAYNE (acute kidney injury): (4) Hypokalemia: (5) Transaminitis: PLAN: 1. Acute hypoxic respiratory failure secondary to COVID-19 pneumonia/RAYNE/transaminitis -CTA of the chest was negative for PE -Intubated 11/21/2020 for respiratory failure secondary to inability to tolerate the BiPAP -Completed remdesivir, will continue Decadron -Continue Seroquel for agitation while on the vent -Started on Rocephin for alphahemolytic Streptococcus in his sputum culture -Appreciate flight engineer performance qualified assistance -Continue to monitor renal as well as LFTs secondary to remdesivir use 2. HTN/HLD/obesity -Blood pressure stable, continue with Norvasc, will plan to discontinue nifedipine on discharge -Once extubated will have discussions on lifestyle modifications for weight loss -BMI of 31.9 3. BPH -Stable -Continue with finasteride and tamsulosin 4. Skin hypersensitivity and neuropathy with anxiety -Continue with amitriptyline -Given his respiratory status, will hold his Flexeril -He does have Ativan as needed DVT: Lovenox Charges/Coding Visit Charges Inpatient E&M: 82271 Subs Hosp L2
[2020-11-26] MEDS: Bisacodyl 10 MG Suppository RC (12:18)
[2020-11-26] MEDS: Magnesium Citrate 300 ML PO (12:19)
[2020-11-26] MEDS: Ceftriaxone 1 GM/50 ML BAG IV (12:19)
[2020-11-26] MEDS: amLODIPine 10 MG Tablet PO (21:06)
[2020-11-27] VITALS (36 sets, daily range): BP systolic 101–133; BP diastolic 71–86; PULSE 77–110; RESP 13–36; TEMP 37.2–38.4; O2SAT 89–93
[2020-11-27 04:06] LABS: Hematocrit 41.8 % (40-54); Hemoglobin 13.1 g/dL (13.0-16.5); Mean Corp Hgb Conc 31.3 g/dL (32-36); Mean Corpuscular Volume 92.7 fL (80-94); Mean Platelet Vol. 10.1 fl (6.2-12.0); POSITIVE COUNT YES; POSITIVE DIFFERENTIAL YES; POSITIVE MORPHOLOGY YES; Platelet Count 355 K/mm3 (150-450); RBC Distribution Width CV 13.9 % (11.6-14.6); Red Blood Count 4.51 M/mm3 (4.6-6.2); White Blood Count 12.5 K/mm3 (4.4-11.0)
[2020-11-27 04:15] LABS: Differential Indicated MANUAL DIFF
[2020-11-27] MEDS: Propofol 10MG/Ml 1,000 MG/100 ML Bottle 13 MG CONT INF (04:30)
[2020-11-27 04:36] LABS: ALB/GLOB Ratio 0.3 RATIO (0.9-2.4); AST(SGOT) 27 U/L (15-37); Alanine Aminotransfer ALT/SGPT 46 U/L (16-61); Albumin, Serum 1.7 g/dL (3.2-5.0); Alkaline Phosphatase 55 U/L (45-117); Anion Gap 6 (5-15); BUN 35 mg/dL (7-18); BUN/Creat Ratio 45.3 RATIO (10-20); Calcium,Total 8.5 mg/dL (8.5-10.1); Chloride 110 mmol/L (98-107); Creatinine, Serum 0.77 mg/dL (0.70-1.30); EST Glomerular Filtration Rate 107 mL/min (>60); Est Glom Filt Rate - Afr Amer 130 mL/min (>60); Estimated Creatinine Clearance 104.98 ml/min; Glucose 151 mg/dL (74-106); Potassium 4.3 mmol/L (3.5-5.1); Protein, Total 6.7 g/dL (6.4-8.2); Sodium Level 144 mmol/L (136-145)
[2020-11-27 04:42] LABS: Lymphocyte 2 % (19-41); Metamyelocyte 1 % (0-1); Monocyte 2 % (0-10); Myelocyte 2 % (0-0); Neutrophil-Band 5 % (0-5); Neutrophil-Segmented 90 % (47-70); Total Cells Counted 200 (MANUAL DIFF)
[2020-11-27 04:46] LABS: Allen Test Positive; Base Excess 1 mmol/L (-2 to +2); Bicarbonate 25.5 mmol/L (22-26); Blood Gas Specimen Type ART; FI02 70; Mode BiLevel; O2 Delivery Device Adult Vent; PO2 70 mmHG (75-100); RR 12; SITE L Radial; SO2 94 % (95-99); Total Carbon Dioxide 27 mmol/L; pCO2 38.4 mmHg (35-45); pH 7.43 (7.35-7.45)
[2020-11-27 04:47] LABS: Absolute Neutrophil Count 12.1 X10^3/uL (2.0-7.7)
[2020-11-27 04:48] LABS: Absolute Lymphocyte Count 0.25 X10^3/uL (0.83-4.51); Lymphocyte # 0.25 X10^3/ul (0.83-4.51)
[2020-11-27 04:49] LABS: Differential Comment MANUAL DIFF; Platelet Estimate ADEQUATE (ADEQ); Red Cell Morphology NORM C+C NORMAL (NORM C&C)
[2020-11-27] MEDS: TITRATION PARAMETER CHANGE 1 EACH IV (05:32)
[2020-11-27] MEDS: Propofol 10MG/Ml 1,000 MG/100 ML Bottle 12.9 MG CONT INF (07:35)
--- NOTE | 2020-11-27 08:08 | PN.CC_ITS ---
Assessment & Plan Assessment/Plan (1) Acute respiratory failure with hypoxia: (2) COVID-19: PLAN: RECOMMENDATIONS: 1. Morning ABG while on APRV. Continue to wean FiO2 to maintain oxygen s aturations at or above 90%. 2. Completed remdesivir. Continue Decadron to complete 10-day treatment course (11/28/2020). 3. Continue twice daily Lovenox. 4. Wean FiO2 as tolerated 5. Lasix as tolerated by labs?dose today 6. Aggressive bowel regimen 7. Continue Seroquel at current dosing 8. Anticipate at least 7 days of ceftriaxone pending culture results IMPRESSIONS: 1. Acute hypoxemic respiratory failure secondary to COVID-19 and pneumococ main pneumonia The patient is unvaccinated male who presented to the hospital with prog ressive respiratory symptoms and was subsequently found to be positive for coronavirus. He has multiple sick contacts at home. Plan to continue current supportive measures including heated high flow oxygen with a goal to maintain oxygen saturations at or above 90%. Patient completed remdesivir. We will continue with an ABG daily for APRV ventilation. Adequate oxygenation and ventilation with morning ABG. Patient continues to receive diuretics and antibiotics. Oxygenation is grossly unchanged compared to previous. Decadron will be completed tomorrow. 2. Acute kidney injury Resolved. Likely prerenal in etiology. Creatinine has normalized with volume expansion. Avoid continuous fluids. Lasix challenge today. Continue to monitor urine output. No current indication for renal replacement therapy. 3. Obesity/BPH/hypertension Complicates care, management, recovery and prognosis. Continue home medications as indicated. Continue tube feeds. Monitor for bowel movements. TIME: 34 minutes critical care time spent addressing patient's acute hypoxic respiratory failure, acute kidney injury, review of all data and collaboration with care team (6 AM to 7 AM) Subjective Subjective The patient did okay overnight from a hemodynamic standpoint. Patient did have a bowel movement yesterday, but abdominal exam was relatively unchanged. Only minor fever noted overnight. Patient is tolerating tube feeds. Patient continues to have intermittent episodes of agitation. Objective Data Objective Data Vital Signs: Vital Signs Temp Pulse Resp BP Pulse Ox 37.6 C H 106 H 27 H 113/74 91 11/27/20 04:00 11/27/20 07:40 11/27/20 07:40 11/27/20 07:00 11/27/20 07:40 Oxygen Flow Rate (L/min) 100 Oxygen Delivery Method Mechanical Ventilator Weight: 107.4 kg Body Mass Index (BMI) 31.8 Intake & Output: Intake and Output for Last 24 Hours 11/25/20 11/26/20 11/27/20 23:59 23:59 23:59 Intake Total 1983.03 / 2119.03 1524.64 / 1571.14 314.82 / 314.82 Output Total 1520 / 1920 1755 / 3005 1500 / 1500 Balance 464.03 / 199.03 -230.36 / -1433.86 -1185.18 / -1185.18 Lab / Micro Data Result Diagrams: 11/27/20 03:55 11/27/20 03:55 Labs: Laboratory Results - last 24 hr 11/27/20 03:55: WBC 12.5 H, RBC 4.51 L, Hgb 13.1, Hct 41.8, MCV 92.7, MCH 29.0, MCHC 31.3 L, RDW Std Deviation 47.0 H, RDW Coeff of Pascale 13.9, Plt Count 355, MPV 10.1, Neut % (Auto) Not Reportable, Absolute Neuts (auto) 12.1 H, Absolute Lymphs (auto) 0.25 L, Total Counted 200, Neutrophils % (Manual) 90 H, Band Neutrophils % 5, Lymphocytes % (Manual) 2 L, Monocytes % (Manual) 2, Metamyelocytes % 1, Myelocytes % 2 H, Differential Comment MANUAL DIFF, Diff Path Review May foll, Platelet Estimate ADEQUATE, RBC Morphology NORM C+C 11/27/20 03:55: Sodium 144, Potassium 4.3, Chloride 110 H, Carbon Dioxide 28.0, Anion Gap 6, BUN 35 H, Creatinine 0.77, Estim Creat Clear Calc 104.98, Est GFR (MDRD) Af Amer 130, Est GFR (MDRD) Non-Af 107, BUN/Creatinine Ratio 45.3 H, Glucose 151 H, Calcium 8.5, Total Bilirubin 0.30, AST 27, ALT 46, Alkaline Phosphatase 55, Total Protein 6.7, Albumin 1.7 L, Globulin 5.0 H, Albumin/Globulin Ratio 0.3 L Micro: Microbiology 11/22/20 07:20 Sputum, Induced/Lukens Gram Stain - Final 11/22/20 07:20 Sputum, Induced/Lukens Respiratory Culture - Preliminary Streptococcus pneumoniae 11/19/20 15:37 Nasal Secretion SARS-CoV-2 Antigen (Rapid) - Final SARS-CoV-2 (COVID 19) ABG Data ABG results: ABG 11/27/20 04:42 Specimen Type ART Sample Site L Radial pH 7.43 Bicarbonate Actual 25.5 Total CO2 27 Base Excess 1 O2 Saturation 94 L O2 % 70 ABG pCO2 38.4 ABG pO2 70 L Sean Test Positive Respiration Rate 12 O2 Delivery Device Adult Vent Vent Mode BiLevel Clinical Comments Physical Exam Const no apparent distress Constitutional Narrative: Fair vent synchrony noted. RASS -3. General Appearance: cooperative, intubated and patient mechanically ventilated Nutritional Appearance: obese HEENT normocephalic, head/scalp atraumatic and moist oral mucous membranes Eyes PERRL, EOMs intact bilaterally and conjunctivae normal Neck supple General: trachea midline Chest inspection of chest normal Chest: symmetrical chest wall rise; Negative for crepitus Resp no use of accessory muscles Auscultation: diminished lung sounds; Negative for rales, rhonchi or wheezes Cardio regular rate, regular rhythm, no murmurs, no rub and no gallops GI Inspection: abdominal distention Palpation: firm; Negative for rigid or rebound tenderness present Percussion: Negative for fluid wave Extremity no clubbing, cyanosis or edema General Extremity: edema bilateral (Trace) lower extremity; Negative for clubbing or cyanosis Skin no rashes or lesions noted Neuro moves all extremities and no focal motor deficits Psych cooperative and affect normal Charges/Coding Procedures Hospitalists Procedures: [id number] Critial Care 1st Hr
[2020-11-27] MEDS: Vital AF 1.2 Cal Liquid 1,000 ML 70 ML GT ×2 (08:10→21:43)
[2020-11-27] MEDS: CHLORHEXIDINE GLUC 2% CLOTH 1 EACH TOWELETTE TOPICAL (08:11)
[2020-11-27] MEDS: Ceftriaxone 1 GM/50 ML BAG IV (09:27)
[2020-11-27] MEDS: dexAMETHasone 2 MG TABLET 6 MG PO (09:37)
[2020-11-27] MEDS: Chlorhexidine 15 ML PO ×2 (09:37→20:09)
[2020-11-27] MEDS: Enoxaparin 40 MG/0.4 ML Syringe SC ×2 (09:37→21:43)
[2020-11-27] MEDS: Famotidine 20 MG Tablet GT ×2 (09:38→21:46)
[2020-11-27] MEDS: QUEtiapine 100 MG Tablet PO ×2 (09:38→21:46)
[2020-11-27] MEDS: Polyethylene Glycol 3350 17 GM PACKET PO (09:38)
[2020-11-27] MEDS: Senna/Docusate Sodium 1 Tablet 2 TABLET PO ×2 (09:38→21:47)
[2020-11-27] MEDS: Amitriptyline 25 MG Tablet PO ×2 (09:38→21:44)
[2020-11-27] MEDS: Furosemide 40 MG/4 ML Vial IV ×2 (09:38→17:58)
[2020-11-27] MEDS: Finasteride 5 MG Tablet PO (09:39)
[2020-11-27] MEDS: 0.9% Saline Lock 10 ML Syringe IV ×2 (09:39→17:58)
--- NOTE | 2020-11-27 10:54 | PCM.PN.HOSP ---
Subjective Subjective Remains unchanged from yesterday. No new issues overnight. Objective Data Objective Data Vital Signs: Vital Signs Temp Pulse Resp BP Pulse Ox 100.1 F H 94 23 H 133/79 H 91 11/27/20 10:00 11/27/20 10:00 11/27/20 10:00 11/27/20 10:00 11/27/20 10:00 Oxygen Flow Rate (L/min) 100 Oxygen Delivery Method Mechanical Ventilator Weight: 236 lb 12.423 oz Body Mass Index (BMI) 31.8 Intake & Output: Intake and Output for Last 24 Hours 11/26/20 11/27/20 11/28/20 03:59 03:59 03:59 Intake Total 1577.77 / 1587.77 1423.67 / 1546.67 332.11 / 332.11 Output Total 1795 / 1795 2605 / 2855 690 / 690 Balance -217.23 / -207.23 -1181.33 / -1308.33 -357.89 / -357.89 Lab / Micro Data Result Diagrams: 11/27/20 03:55 11/27/20 03:55 Labs: Laboratory Results - last 24 hr 11/27/20 03:55: WBC 12.5 H, RBC 4.51 L, Hgb 13.1, Hct 41.8, MCV 92.7, MCH 29.0, MCHC 31.3 L, RDW Std Deviation 47.0 H, RDW Coeff of Pascale 13.9, Plt Count 355, MPV 10.1, Neut % (Auto) Not Reportable, Absolute Neuts (auto) 12.1 H, Absolute Lymphs (auto) 0.25 L, Total Counted 200, Neutrophils % (Manual) 90 H, Band Neutrophils % 5, Lymphocytes % (Manual) 2 L, Monocytes % (Manual) 2, Metamyelocytes % 1, Myelocytes % 2 H, Differential Comment MANUAL DIFF, Diff Path Review May foll, Platelet Estimate ADEQUATE, RBC Morphology NORM C+C 11/27/20 03:55: Sodium 144, Potassium 4.3, Chloride 110 H, Carbon Dioxide 28.0, Anion Gap 6, BUN 35 H, Creatinine 0.77, Estim Creat Clear Calc 104.98, Est GFR (MDRD) Af Amer 130, Est GFR (MDRD) Non-Af 107, BUN/Creatinine Ratio 45.3 H, Glucose 151 H, Calcium 8.5, Total Bilirubin 0.30, AST 27, ALT 46, Alkaline Phosphatase 55, Total Protein 6.7, Albumin 1.7 L, Globulin 5.0 H, Albumin/Globulin Ratio 0.3 L Micro: Microbiology 11/22/20 07:20 Sputum, Induced/Lukens Gram Stain - Final 11/22/20 07:20 Sputum, Induced/Lukens Respiratory Culture - Preliminary Streptococcus pneumoniae 11/19/20 15:37 Nasal Secretion SARS-CoV-2 Antigen (Rapid) - Final SARS-CoV-2 (COVID 19) ABG Data ABG results: ABG 11/27/20 04:42 Specimen Type ART Sample Site L Radial pH 7.43 Bicarbonate Actual 25.5 Total CO2 27 Base Excess 1 O2 Saturation 94 L O2 % 70 ABG pCO2 38.4 ABG pO2 70 L Sean Test Positive Respiration Rate 12 O2 Delivery Device Adult Vent Vent Mode BiLevel Clinical Comments Physical Exam Const General Appearance: intubated and patient mechanically ventilated HEENT normocephalic and moist oral mucous membranes Eyes PERRL, EOMs intact bilaterally and conjunctivae normal Neck supple and no JVD Resp normal respiratory effort, no retractions and no use of accessory muscles Auscultation: Negative for crackles, rales, rhonchi or wheezes Cardio regular rate, regular rhythm, S1 normal heart sound, S2 normal heart sound and no murmurs GI soft to palpation, non-tender and non-distended; Negative for hepatosplenomegaly Extremity no clubbing, cyanosis or edema Skin no rashes or lesions noted and skin turgor normal Neuro Sensorium / Orientation: sedated on vent Psych Appearance: intubated Assessment & Plan Assessment/Plan (1) COVID-19: (2) Acute respiratory failure with hypoxia: (3) RAYNE (acute kidney injury): (4) Hypokalemia: (5) Transaminitis: PLAN: 1. Acute hypoxic respiratory failure secondary to COVID-19 pneumonia/RAYNE/transaminitis -CTA of the chest was negative for PE -Intubated 11/21/2020 for respiratory failure secondary to inability to tolerate the BiPAP -Completed remdesivir, will continue Decadron -Continue Seroquel for agitation while on the vent -Started on Rocephin for alphahemolytic Streptococcus in his sputum culture -Appreciate composition weatherboard installer assistance -Continue to monitor renal as well as LFTs secondary to remdesivir use 2. HTN/HLD/obesity -Blood pressure stable, continue with Norvasc, will plan to discontinue nifedipine on discharge -Once extubated will have discussions on lifestyle modifications for weight loss -BMI of 31.9 3. BPH -Stable -Continue with finasteride and tamsulosin 4. Skin hypersensitivity and neuropathy with anxiety -Continue with amitriptyline -Given his respiratory status, will hold his Flexeril -He does have Ativan as needed DVT: Lovenox Charges/Coding Visit Charges Inpatient E&M: 47615 Subs Hosp L2
[2020-11-27] MEDS: Propofol 10MG/Ml 1,000 MG/100 ML Bottle 16.1 MG CONT INF ×3 (12:21→21:25)
[2020-11-27] MEDS: Acetaminophen 650 MG/20 ML UDC PO (12:21)
[2020-11-27] MEDS: amLODIPine 10 MG Tablet PO (21:46)
[2020-11-28] VITALS (36 sets, daily range): BP systolic 93–177; BP diastolic 64–91; PULSE 82–119; RESP 13–45; TEMP 36.6–39.2; O2SAT 85–94
[2020-11-28] MEDS: Propofol 10MG/Ml 1,000 MG/100 ML Bottle 12.9 MG CONT INF (05:06)
[2020-11-28 05:26] LABS: Allen Test Positive; Base Excess 4 mmol/L (-2 to +2); Blood Gas Specimen Type ART; FI02 75; Mode BiLevel; O2 Delivery Device Adult Vent; PO2 57 mmHG (75-100); RR 12; SITE R Radial; SO2 92 % (95-99); Total Carbon Dioxide 28 mmol/L; pCO2 35.9 mmHg (35-45); pH 7.49 (7.35-7.45)
[2020-11-28 05:52] LABS: Hematocrit 44.2 % (40-54); Hemoglobin 13.6 g/dL (13.0-16.5); Mean Corp Hgb Conc 30.8 g/dL (32-36); Mean Corpuscular Hgb 28.9 pg (27.0-32.0); Mean Corpuscular Volume 93.8 fL (80-94); Mean Platelet Vol. 10.5 fl (6.2-12.0); POSITIVE COUNT YES; POSITIVE DIFFERENTIAL YES; POSITIVE MORPHOLOGY YES; Platelet Count 338 K/mm3 (150-450); RBC Distribution Width CV 13.9 % (11.6-14.6); RBC Distribution Width SD 47.6 fl (35.1-43.9); Red Blood Count 4.71 M/mm3 (4.6-6.2); White Blood Count 12.7 K/mm3 (4.4-11.0)
[2020-11-28 05:56] LABS: Differential Indicated MANUAL DIFF
[2020-11-28] MEDS: Furosemide 40 MG/4 ML Vial IV (06:07)
[2020-11-28 06:13] LABS: Anion Gap 5 (5-15); BUN 40 mg/dL (7-18); BUN/Creat Ratio 47.8 RATIO (10-20); Calcium,Total 8.5 mg/dL (8.5-10.1); Chloride 109 mmol/L (98-107); Creatinine, Serum 0.84 mg/dL (0.70-1.30); EST Glomerular Filtration Rate 98 mL/min (>60); Est Glom Filt Rate - Afr Amer 118 mL/min (>60); Estimated Creatinine Clearance 96.23 ml/min; Glucose 120 mg/dL (74-106); Potassium 4.2 mmol/L (3.5-5.1); Sodium Level 144 mmol/L (136-145)
--- NOTE | 2020-11-28 06:15 | RAD_ITS ---
STUDY: X-RAY CHEST REASON FOR EXAM: Male, 65 years old. possible pneumo TECHNIQUE: Single AP portable view of the chest. COMPARISON: 11/24/2020 FINDINGS: Endotracheal tube tip approximately 4.5 cm superior to the emma. Enteric tube tip in distal site over the gastric body. Right internal jugular catheter tip over the mid superior vena cava. There are superimposed monitor leads. Interval development of bilateral cervical, supraclavicular and chest wall emphysema. Worsening of airspace disease with opacification in the bilateral lung parenchyma, there is pneumomediastinum. No overt effusions. Small left apical pneumothorax tiny right apical pneumothorax, not visualized on previous exam. Normal size heart. Normal visualized pulmonary arteries. Normal visualized aortic arch and descending thoracic aorta. Normal visualized thoracic spine. Normal visualized ribs, clavicles, and shoulders. There is no demonstrated abnormality of the visualized soft tissue structures of the upper abdomen. RAD/Chest 1 View (Portable) IMPRESSION: Lines as above. Interval worsening of airspace disease, chest wall emphysema, pneumomediastinum and tiny/small pneumothoraces right and left respectively. Electronically Signed: Taylor Galloway MD at 8:29 EDT , Service support ,
[2020-11-28] MEDS: Acetaminophen 650 MG/20 ML UDC PO (06:22)
[2020-11-28] MEDS: Propofol 10MG/Ml 1,000 MG/100 ML Bottle 22.3 MG CONT INF (06:24)
[2020-11-28 06:27] LABS: Total Cells Counted 100 (MANUAL DIFF)
[2020-11-28 06:31] LABS: Myelocyte 2 % (0-0); Neutrophil-Band 4 % (0-5); Neutrophil-Segmented 92 % (47-70)
[2020-11-28 06:32] LABS: Lymphocyte 0 % (19-41)
[2020-11-28 06:33] LABS: Eosinophil 1 % (0-5); Monocyte 1 % (0-10); Neutrophil # 12.19 X10^3/uL (2.7-7.7)
[2020-11-28 06:34] LABS: Absolute Neutrophil Count 12.2 X10^3/uL (2.0-7.7); Platelet Estimate ADEQUATE (ADEQ); Red Cell Morphology NORM C+C NORMAL (NORM C&C)
[2020-11-28] MEDS: LORazepam 2 MG/ML Syringe IV (06:41)
--- NOTE | 2020-11-28 07:08 | PN.CC_ITS ---
Assessment & Plan Assessment/Plan (1) Acute respiratory failure with hypoxia: (2) COVID-19: PLAN: RECOMMENDATIONS: 1. Morning ABG while on APRV. Continue to wean FiO2 to maintain oxygen s aturations at or above 90%. 2. Completed remdesivir. Continue Decadron to complete 10-day treatment course (11/28/2020). 3. Continue twice daily Lovenox. 4. Wean FiO2 as tolerated. Attempt decrease P high given pneumomediastinum 5. Lasix as tolerated by labs?dose today 6. Aggressive bowel regimen 7. Continue Seroquel at current dosing 8. Anticipate at least 7 days of ceftriaxone IMPRESSIONS: 1. Acute hypoxemic respiratory failure secondary to COVID-19 and pneumococcal pneumonia The patient is unvaccinated male who presented to the hospital with progressive respiratory symptoms and was subsequently found to be positive for coronavirus. He has multiple sick contacts at home. Plan to continue current supportive measures including heated high flow oxygen with a goal to maintain oxygen saturations at or above 90%. Patient completed remdesivir. We will continue with an ABG daily for APRV ventilation. Adequate oxygenation and ventilation with morning ABG. Patient continues to receive diuretics and antibiotics. Patient should complete Decadron today. Unfortunately, patient has developed a pneumomediastinum on chest x-ray and physical exam. Attempts to limit P high have been difficult. Patient should complete a total of 7 days of antibiotics. 2. Acute kidney injury Resolved. Likely prerenal in etiology. Creatinine has normalized with volume expansion. Avoid continuous fluids. Lasix challenge today. Continue to monitor urine output. No current indication for renal replacement therapy. 3. Obesity/BPH/hypertension Complicates care, management, recovery and prognosis. Continue home medications as indicated. Continue tube feeds. Monitor for bowel movements. TIME: 32 minutes critical care time spent addressing patient's acute hypoxic respiratory failure, acute kidney injury, review of all data and collaboration with care team (5:30 AM to 6:30 AM) Subjective Subjective Patient developed left clavicular crepitus overnight. This morning, patient was having significant vent dyssynchrony despite propofol and fentanyl. Patient was given Ativan with some improvement. Patient also noted to have significant rales on exam and was given Lasix with some response. P high was decreased to 26 yesterday and this has persisted overnight. Patient has had significant fever Objective Data Objective Data ABG shows adequate oxygenation and ventilation on current settings. Vital Signs: Vital Signs Temp Pulse Resp BP Pulse Ox 38.8 C H 116 H 40 H 177/91 H 90 11/28/20 06:00 11/28/20 07:00 11/28/20 07:00 11/28/20 06:00 11/28/20 07:00 Oxygen Flow Rate (L/min) 100 Oxygen Delivery Method Mechanical Ventilator Weight: 106.1 kg Body Mass Index (BMI) 31.8 Intake & Output: Intake and Output for Last 24 Hours 11/26/20 11/27/20 11/28/20 23:59 23:59 23:59 Intake Total 1524.64 / 1571.14 1890.78 / 1890.78 523.13 / 523.13 Output Total 1755 / 3005 3965 / 3965 450 / 450 Balance -230.36 / -1433.86 -2074.22 / -2074.22 73.13 / 73.13 Lab / Micro Data Result Diagrams: 11/28/20 05:00 11/28/20 05:00 Labs: Laboratory Results - last 24 hr 11/28/20 05:00: WBC 12.7 H, RBC 4.71, Hgb 13.6, Hct 44.2, MCV 93.8, MCH 28.9, MCHC 30.8 L, RDW Std Deviation 47.6 H, RDW Coeff of Pascale 13.9, Plt Count 338, MPV 10.5, Neut % (Auto) Not Reportable, Absolute Neuts (auto) 12.2 H, Absolute Lymphs (auto) 0.00 L, Total Counted 100, Neutrophils % (Manual) 92 H, Band Neutrophils % 4, Lymphocytes % (Manual) 0 L, Monocytes % (Manual) 1, Eosinophils % (Manual) 1, Myelocytes % 2 H, Diff Path Review May , Platelet Estimate ADEQUATE, RBC Morphology NORM C+C 11/28/20 05:00: Sodium 144, Potassium 4.2, Chloride 109 H, Carbon Dioxide 30.0, Anion Gap 5, BUN 40 H, Creatinine 0.84, Estim Creat Clear Calc 96.23, Est GFR (MDRD) Af Amer 118, Est GFR (MDRD) Non-Af 98, BUN/Creatinine Ratio 47.8 H, Glucose 120 H, Calcium 8.5 Micro: Microbiology 11/22/20 07:20 Sputum, Induced/Lukens Gram Stain - Final 11/22/20 07:20 Sputum, Induced/Lukens Respiratory Culture - Preliminary Streptococcus pneumoniae 11/19/20 15:37 Nasal Secretion SARS-CoV-2 Antigen (Rapid) - Final SARS-CoV-2 (COVID 19) ABG Data ABG results: ABG 11/28/20 05:18 Specimen Type ART Sample Site R Radial pH 7.49 H Bicarbonate Actual 27.0 H Total CO2 28 Base Excess 4 H O2 Saturation 92 L O2 % 75 ABG pCO2 35.9 ABG pO2 57 L Sean Test Positive Respiration Rate 12 O2 Delivery Device Adult Vent Vent Mode BiLevel Clinical Comments P high 26,T high 4.5 Physical Exam Const no apparent distress Constitutional Narrative: Poor initial vent synchrony noted. RASS -3. General Appearance: cooperative, intubated and patient mechanically ventilated Nutritional Appearance: obese HEENT normocephalic, head/scalp atraumatic and moist oral mucous membranes Eyes PERRL, EOMs intact bilaterally and conjunctivae normal Neck supple General: trachea midline Chest inspection of chest normal Chest: symmetrical chest wall rise and crepitus clavicle (Extension into the neck) left distal clavicular Resp no use of accessory muscles Auscultation: diminished lung sounds; Negative for rales, rhonchi or wheezes Cardio regular rate, regular rhythm, no murmurs, no rub and no gallops GI normal to inspection, nondistended, normoactive bowel sounds Inspection: abdominal distention Palpation: firm; Negative for rigid or rebound tenderness present Percussion: Negative for fluid wave Extremity no clubbing, cyanosis or edema General Extremity: edema bilateral (Trace) lower extremity; Negative for clubbing or cyanosis Skin no rashes or lesions noted Neuro moves all extremities and no focal motor deficits Psych cooperative and affect normal Charges/Coding Procedures Hospitalists Procedures: [id number] Critial Care 1st Hr
[2020-11-28] MEDS: TITRATION PARAMETER CHANGE 1 EACH IV (07:29)
[2020-11-28] MEDS: Propofol 10MG/Ml 1,000 MG/100 ML Bottle 28.6 MG CONT INF (09:19)
[2020-11-28] MEDS: Finasteride 5 MG Tablet PO (10:22)
[2020-11-28] MEDS: Famotidine 20 MG Tablet GT ×2 (10:22→20:05)
[2020-11-28] MEDS: Amitriptyline 25 MG Tablet PO ×2 (10:22→20:05)
[2020-11-28] MEDS: dexAMETHasone 2 MG TABLET 6 MG PO (10:22)
[2020-11-28] MEDS: QUEtiapine 100 MG Tablet PO ×2 (10:23→22:31)
[2020-11-28] MEDS: Senna/Docusate Sodium 1 Tablet 2 TABLET PO ×2 (10:23→22:26)
[2020-11-28] MEDS: Tamsulosin HCl 0.4 MG Capsule PO (10:23)
[2020-11-28] MEDS: Enoxaparin 40 MG/0.4 ML Syringe SC ×2 (10:23→20:05)
[2020-11-28] MEDS: CHLORHEXIDINE GLUC 2% CLOTH 1 EACH TOWELETTE TOPICAL (10:23)
[2020-11-28] MEDS: Polyethylene Glycol 3350 17 GM PACKET PO (10:23)
[2020-11-28] MEDS: Chlorhexidine 15 ML PO ×2 (10:23→20:13)
[2020-11-28] MEDS: Ceftriaxone 1 GM/50 ML BAG IV (10:52)
[2020-11-28] MEDS: Vital AF 1.2 Cal Liquid 1,000 ML 70 ML GT (11:55)
--- NOTE | 2020-11-28 12:04 | PCM.PN.HOSP ---
Subjective Subjective Patient is intubated. On propofol and fentanyl. Sedated. On antibiotic. Fever, tachycardic and tachypneic. Objective Data Objective Data Vital Signs: Vital Signs Temp Pulse Resp BP Pulse Ox 101.5 F H 103 H 15 93/64 92 11/28/20 10:00 11/28/20 11:00 11/28/20 11:00 11/28/20 11:00 11/28/20 11:00 Oxygen Flow Rate (L/min) 100 Oxygen Delivery Method Mechanical Ventilator Weight: 233 lb 14.567 oz Body Mass Index (BMI) 31.8 Intake & Output: Intake and Output for Last 24 Hours 11/26/20 11/27/20 11/28/20 23:59 23:59 23:59 Intake Total 1524.64 / 1571.14 1890.78 / 1913.68 832.57 / 832.57 Output Total 1755 / 3005 3965 / 3965 1050 / 1050 Balance -230.36 / -1433.86 -2074.22 / -2051.32 -217.43 / -217.43 Lab / Micro Data Result Diagrams: 11/28/20 05:00 11/28/20 05:00 Labs: Laboratory Results - last 24 hr 11/28/20 05:00: WBC 12.7 H, RBC 4.71, Hgb 13.6, Hct 44.2, MCV 93.8, MCH 28.9, MCHC 30.8 L, RDW Std Deviation 47.6 H, RDW Coeff of Pascale 13.9, Plt Count 338, MPV 10.5, Neut % (Auto) Not Reportable, Absolute Neuts (auto) 12.2 H, Absolute Lymphs (auto) 0.00 L, Total Counted 100, Neutrophils % (Manual) 92 H, Band Neutrophils % 4, Lymphocytes % (Manual) 0 L, Monocytes % (Manual) 1, Eosinophils % (Manual) 1, Myelocytes % 2 H, Diff Path Review July, Platelet Estimate ADEQUATE, RBC Morphology NORM C+C 11/28/20 05:00: Sodium 144, Potassium 4.2, Chloride 109 H, Carbon Dioxide 30.0, Anion Gap 5, BUN 40 H, Creatinine 0.84, Estim Creat Clear Calc 96.23, Est GFR (MDRD) Af Amer 118, Est GFR (MDRD) Non-Af 98, BUN/Creatinine Ratio 47.8 H, Glucose 120 H, Calcium 8.5 Micro: Microbiology 11/22/20 07:20 Sputum, Induced/Lukens Gram Stain - Final 11/22/20 07:20 Sputum, Induced/Lukens Respiratory Culture - Preliminary Streptococcus pneumoniae 11/19/20 15:37 Nasal Secretion SARS-CoV-2 Antigen (Rapid) - Final SARS-CoV-2 (COVID 19) ABG Data ABG results: ABG 11/28/20 05:18 Specimen Type ART Sample Site R Radial pH 7.49 H Bicarbonate Actual 27.0 H Total CO2 28 Base Excess 4 H O2 Saturation 92 L O2 % 75 ABG pCO2 35.9 ABG pO2 57 L Sean Test Positive Respiration Rate 12 O2 Delivery Device Adult Vent Vent Mode BiLevel Clinical Comments P high 26,T high 4.5 Radiography Diagnostic Testing: Radiology Impression Chest X-Ray 11/28/20 06:15 IMPRESSION: Lines as above. Interval worsening of airspace disease, chest wall emphysema, pneumomediastinum and tiny/small pneumothoraces right and left respectively. Electronically Signed: Taylor Galloway MD at 8:29 EDT , Service support , Physical Exam Narrative Physical exam General: Sedated, unresponsive. HEENT: Atraumatic, PERRLA, EOMI, Normocephalic Oral: ET and OG tube. Neck: Supple, No JVD, Negative Carotid Bruits Lungs: On vent support. APRV. Cardiovascular: Sinus tachycardia normal S1, Normal S2, No murmurs Abdomen: Bowel Sounds Present, Soft, Non Tender. : Meek catheter. Dark urine. No renal angle tenderness. Extremities: Mild bilateral ankle edema, Capillary Refill Less than 3 Seconds Skin: No rashes, No breakdown Musculoskeletal: No Tenderness to Palpation of Joints or Extremities Neurological: Cranial nerves II-XII grossly intact, detail unobtainable on sedative Psych/Mental Status: Sedated Assessment & Plan Assessment/Plan (1) COVID-19: (2) Acute respiratory failure with hypoxia: PLAN: This 65-year-old gentleman admitted with acute hypoxic respiratory failure secondary to COVID-19 and pneumococcal pneumonia 1. Acute hypoxic respiratory failure secondary to COVID-19 bilateral pneumonia, and pneumococcal pneumonia: Patient is being intubated on 11/21 could not tolerate BiPAP. On remdesivir and Decadron. Seroquel for agitation. On IV ceftriaxone for pneumococcal pneumonia. Patient on APRV mode being managed by fisher pound net or trap. CTA was negative for PE. Patient has elevated transaminases. Leukocytosis improving 2. Acute kidney injury due to prerenal: Creatinine improved with IV fluid. Monitor intake and output. Patient has Meek catheter 3. Other comorbidities include hypertension, dyslipidemia and obesity: BMI 31.9 kg/m?. Continue monitoring blood pressure. On Norvasc. 3. BPH Continue with finasteride and tamsulosin 4. Skin hypersensitivity and neuropathy with anxiety: On amitriptyline and quetiapine. DVT: Lovenox 40 subcu twice daily Charges/Coding Visit Charges Inpatient E&M: 52010 [facility] L3
[2020-11-28] MEDS: Propofol 10MG/Ml 1,000 MG/100 ML Bottle 19.1 MG CONT INF (12:51)
[2020-11-28] MEDS: Propofol 10MG/Ml 1,000 MG/100 ML Bottle 9.5 MG CONT INF (17:49)
[2020-11-28 20:05] LABS: Base Excess 3 mmol/L (-2 to +2); Bicarbonate 27.7 mmol/L (22-26); Blood Gas Specimen Type ART; FI02 95; Mode BiLevel; O2 Delivery Device Adult Vent; PO2 67 mmHG (75-100); RR 12; SITE R Radial; SO2 94 % (95-99); Total Carbon Dioxide 29 mmol/L; pCO2 41.4 mmHg (35-45); pH 7.43 (7.35-7.45)
[2020-11-28] MEDS: amLODIPine 10 MG Tablet PO (20:05)
[2020-11-28] MEDS: Propofol 10MG/Ml 1,000 MG/100 ML Bottle 12.7 MG CONT INF (22:32)
[2020-11-29] VITALS (32 sets, daily range): BP systolic 113–153; BP diastolic 70–93; PULSE 86–117; RESP 12–44; TEMP 36.9–38.9; O2SAT 88–95
[2020-11-29] MEDS: Vital AF 1.2 Cal Liquid 1,000 ML 70 ML GT ×2 (04:14→16:58)
[2020-11-29] MEDS: Propofol 10MG/Ml 1,000 MG/100 ML Bottle 12.7 MG CONT INF (04:30)
[2020-11-29 04:36] LABS: Base Excess 3 mmol/L (-2 to +2); Bicarbonate 27.2 mmol/L (22-26); Blood Gas Specimen Type ART; FI02 95; Mode BiLevel; O2 Delivery Device Adult Vent; PO2 63 mmHG (75-100); SITE L Radial; SO2 92 % (95-99); Total Carbon Dioxide 28 mmol/L; pCO2 40.5 mmHg (35-45); pH 7.44 (7.35-7.45)
[2020-11-29 04:50] LABS: Anion Gap 5 (5-15); BUN 36 mg/dL (7-18); BUN/Creat Ratio 50.8 RATIO (10-20); Calcium,Total 8.4 mg/dL (8.5-10.1); Chloride 108 mmol/L (98-107); Creatinine, Serum 0.71 mg/dL (0.70-1.30); EST Glomerular Filtration Rate 118 mL/min (>60); Est Glom Filt Rate - Afr Amer 143 mL/min (>60); Estimated Creatinine Clearance 113.85 ml/min; Glucose 148 mg/dL (74-106); Potassium 4.3 mmol/L (3.5-5.1); Sodium Level 143 mmol/L (136-145)
[2020-11-29 04:52] LABS: CPK Total, Creatine Kinase 45 U/L (39-308); Triglycerides 320 mg/dL
[2020-11-29 04:53] LABS: Hematocrit 42.6 % (40-54); Hemoglobin 13.2 g/dL (13.0-16.5); Mean Corpuscular Hgb 28.9 pg (27.0-32.0); Mean Corpuscular Volume 93.4 fL (80-94); Mean Platelet Vol. 10.5 fl (6.2-12.0); POSITIVE COUNT YES; POSITIVE DIFFERENTIAL YES; POSITIVE MORPHOLOGY YES; Platelet Count 262 K/mm3 (150-450); RBC Distribution Width CV 13.9 % (11.6-14.6); RBC Distribution Width SD 47.2 fl (35.1-43.9); Red Blood Count 4.56 M/mm3 (4.6-6.2)
[2020-11-29 04:58] LABS: Differential Indicated MANUAL DIFF
[2020-11-29] MEDS: Acetaminophen 650 MG/20 ML UDC PO ×3 (05:08→23:49)
[2020-11-29 05:53] LABS: Eosinophil 2 % (0-5); Lymphocyte 3 % (19-41); Metamyelocyte 4 % (0-1); Monocyte 4 % (0-10); Myelocyte 1 % (0-0); Neutrophil-Band 4 % (0-5); Neutrophil-Segmented 82 % (47-70); Nucleated Red Bld Cells,Manual 1 % (0-5); Total Cells Counted 100 (MANUAL DIFF)
[2020-11-29 05:54] LABS: Absolute Neutrophil Count 11.8 X10^3/uL (2.0-7.7); Neutrophil # 11.85 X10^3/uL (2.7-7.7)
[2020-11-29 05:55] LABS: Absolute Lymphocyte Count 0.39 X10^3/uL (0.83-4.51); Differential Comment MANUAL DIFF; Lymphocyte # 0.39 X10^3/ul (0.83-4.51); Platelet Estimate ADEQUATE (ADEQ); Red Cell Morphology NORM C+C NORMAL (NORM C&C)
--- NOTE | 2020-11-29 06:59 | PN.CC_ITS ---
Assessment & Plan Assessment/Plan (1) Acute respiratory failure with hypoxia: (2) COVID-19: PLAN: RECOMMENDATIONS: 1. Continue APRV and wean P high and FiO2 as tolerated to maintain saturations at or above 90%. 2. Continue antimicrobials to complete 7-day treatment course. 3. Continue Lovenox twice daily. 4. Continue as needed Lasix to maintain euvolemic state. 5. Continue propofol, fentanyl and Seroquel. 6. Anticipate goals of care discussion with the patient's family. IMPRESSIONS: 1. Acute hypoxemic respiratory failure secondary to COVID-19 pneumonia with superimposed pneumococcal pneumonia The patient remains quite tenuous from a respiratory perspective with high pressure support and FiO2 requirements. His hospital course has also been complicated by the development of pneumomediastinum. Plan to continue to wean P high as tolerated along with FiO2. The patient has completed treatment courses of remdesivir and Decadron. He will be continued on ceftriaxone to complete a 7-day treatment course. Lovenox twice daily will also be continued. Tube feeds will be continued as tolerated. Overall prognosis is poor. The patient will need to be monitored longitudinally for the development of enlarging pneumothoraces, which could require tube thoracotomy. 2. Obesity/BPH/hypertension Complicates care, management, recovery and prognosis. Continue supportive measures as noted above. TIME: 36 minutes of critical care time, independent of procedures, was spent addressing the patient's acute hypoxemic respiratory failure secondary to COVID- 19 pneumonia with superimposed pneumococcal pneumonia, review of all data and collaboration with the care team. ([id number]) Subjective Subjective The patient was seen and examined at the bedside this morning. Events from the last 24 hours have been reviewed. The patient currently has a low-grade fever but remains otherwise hemodynamically stable. He remains on APRV mode of mechanical ventilation with an FiO2 requirement of 95% and P high of 26. This is vent day 9 for the patient. He remains sedated on propofol and fentanyl. He continues to tolerate tube feeds. The patient is documented to be overall net +2.6 L for the hospital admission. ABG from this morning revealed a pH of 7.4 with a PCO2 of 40 and PO2 of 63. The patient's pneumomediastinum remained stable. The patient remains on antimicrobials and has completed treatment courses of remdesivir and Decadron. Objective Data Objective Data The patient's most recent lab work, culture data and imaging studies have all been personally reviewed. Sputum culture dated November 22 was positive for Streptococcus pneumoniae. Rapid coronavirus antigen testing was positive on November 19. Vital Signs: Vital Signs Temp Pulse Resp BP Pulse Ox 100.1 F H 93 28 H 138/83 H 90 11/29/20 06:00 11/29/20 06:00 11/29/20 06:00 11/29/20 06:00 11/29/20 06:00 Oxygen Flow Rate (L/min) 100 Oxygen Delivery Method Mechanical Ventilator Weight: 106.1 kg Body Mass Index (BMI) 31.8 Intake & Output: Intake and Output for Last 24 Hours 11/27/20 11/28/20 11/29/20 23:59 23:59 23:59 Intake Total 1890.78 / 1913.68 2499.23 / 2515.71 800.79 / 800.79 Output Total 3965 / 3965 2050 / 2050 510 / 510 Balance -2074.22 / -2051.32 449.23 / 465.71 290.79 / 290.79 Lab / Micro Data Attestation: I reviewed the patient's lab results. Result Diagrams: 11/29/20 04:20 11/29/20 04:20 Labs: Laboratory Results - last 24 hr 11/29/20 04:20: Total Creatine Kinase 45, Triglycerides 320 H 11/29/20 04:20: Triglycerides Cancelled 11/29/20 04:20: WBC 13.0 H, RBC 4.56 L, Hgb 13.2, Hct 42.6, MCV 93.4, MCH 28.9, MCHC 31.0 L, RDW Std Deviation 47.2 H, RDW Coeff of Pascale 13.9, Plt Count 262, MPV 10.5, Neut % (Auto) Not Reportable, Absolute Neuts (auto) 11.8 H, Absolute Lymphs (auto) 0.39 L, Total Counted 100, Neutrophils % (Manual) 82 H, Band Neutrophils % 4, Lymphocytes % (Manual) 3 L, Monocytes % (Manual) 4, Eosinophils % (Manual) 2, Metamyelocytes % 4 H, Myelocytes % 1 H, Nucleated RBCs/100 WBC 1, Differential Comment MANUAL DIFF, Diff Path Review July, Platelet Estimate ADEQUATE, RBC Morphology NORM C+C 11/29/20 04:20: Sodium 143, Potassium 4.3, Chloride 108 H, Carbon Dioxide 30.0, Anion Gap 5, BUN 36 H, Creatinine 0.71, Estim Creat Clear Calc 113.85, Est GFR (MDRD) Af Amer 143, Est GFR (MDRD) Non-Af 118, BUN/Creatinine Ratio 50.8 H, Gl ucose 148 H, Calcium 8.4 L Micro: Microbiology 11/22/20 07:20 Sputum, Induced/Lukens Gram Stain - Final 11/22/20 07:20 Sputum, Induced/Lukens Respiratory Culture - Preliminary Streptococcus pneumoniae 11/19/20 15:37 Nasal Secretion SARS-CoV-2 Antigen (Rapid) - Final SARS-CoV-2 (COVID 19) ABG Data ABG results: ABG 11/28/20 11/29/20 19:59 04:31 Specimen Type ART ART Sample Site R Radial L Radial pH 7.43 7.44 Bicarbonate Actual 27.7 H 27.2 H Total CO2 29 28 Base Excess 3 H 3 H O2 Saturation 94 L 92 L O2 % 95 95 ABG pCO2 41.4 40.5 ABG pO2 67 L 63 L Sean Test N/A N/A Respiration Rate 12 O2 Delivery Device Adult Vent Adult Vent Vent Mode BiLevel BiLevel Clinical Comments phigh26 thigh4.5 Radiography Diagnostic Testing: Radiology Impression Chest X-Ray 11/28/20 06:15 IMPRESSION: Lines as above. Interval worsening of airspace disease, chest wall emphysema, pneumomediastinum and tiny/small pneumothoraces right and left respectively. Electronically Signed: Taylor Galloway MD at 8:29 EDT , Service support , Physical Exam Const General Appearance: ill appearing, intubated and patient mechanically ventilated Nutritional Appearance: obese HEENT normocephalic and head/scalp atraumatic Mouth: endotracheal tube in place and OG tube in place Eyes PERRL and EOMs intact bilaterally Neck supple Neck Narrative: Crepitus noted General: trachea midline Resp Effort and Inspection: tachypneic Auscultation: diminished lung sounds; Negative for rales, rhonchi or wheezes Cardio regular rate and regular rhythm GI normal to inspection, nondistended, normoactive bowel sounds Extremity General Extremity: edema bilateral lower extremity; Negative for clubbing Skin no rashes or lesions noted Neuro no focal motor deficits Sensorium / Orientation: sedated on vent Charges/Coding Procedures Hospitalists Procedures: 61121 Critial Care 1st Hr
[2020-11-29] MEDS: Propofol 10MG/Ml 1,000 MG/100 ML Bottle 15.9 MG CONT INF (07:15)
[2020-11-29] MEDS: Propofol 10MG/Ml 1,000 MG/100 ML Bottle 22.3 MG CONT INF ×5 (10:23→22:45)
[2020-11-29] MEDS: Chlorhexidine 15 ML PO ×2 (10:36→20:00)
[2020-11-29] MEDS: QUEtiapine 100 MG Tablet PO ×2 (10:37→19:59)
[2020-11-29] MEDS: Finasteride 5 MG Tablet PO (10:37)
[2020-11-29] MEDS: Enoxaparin 40 MG/0.4 ML Syringe SC ×2 (10:37→19:59)
[2020-11-29] MEDS: Tamsulosin HCl 0.4 MG Capsule PO (10:37)
[2020-11-29] MEDS: CHLORHEXIDINE GLUC 2% CLOTH 1 EACH TOWELETTE TOPICAL (10:37)
[2020-11-29] MEDS: Amitriptyline 25 MG Tablet PO ×2 (10:37→19:59)
[2020-11-29] MEDS: Famotidine 20 MG Tablet GT ×2 (10:37→19:59)
[2020-11-29] MEDS: Ceftriaxone 1 GM/50 ML BAG IV (12:13)
--- NOTE | 2020-11-29 12:47 | PCM.PN.HOSP ---
Subjective Subjective Patient has fever T-max 102.6 Fahrenheit. Patient on APRV mode of ventilator with FiO2 95%. Phigh 26. Objective Data Objective Data Vital Signs: Vital Signs Temp Pulse Resp BP Pulse Ox 100.2 F H 116 H 36 H 127/71 H 91 11/29/20 08:00 11/29/20 11:25 11/29/20 11:25 11/29/20 09:00 11/29/20 11:25 Oxygen Flow Rate (L/min) 100 Oxygen Delivery Method Mechanical Ventilator Weight: 233 lb 14.567 oz Body Mass Index (BMI) 31.8 Intake & Output: Intake and Output for Last 24 Hours 11/27/20 11/28/20 11/29/20 23:59 23:59 23:59 Intake Total 1890.78 / 1913.68 2499.23 / 2515.71 1040.01 / 1040.01 Output Total 3965 / 3965 2050 / 2050 950 / 950 Balance -2074.22 / -2051.32 449.23 / 465.71 90.01 / 90.01 Lab / Micro Data Result Diagrams: 11/29/20 04:20 11/29/20 04:20 Labs: Laboratory Results - last 24 hr 11/29/20 04:20: Total Creatine Kinase 45, Triglycerides 320 H 11/29/20 04:20: Triglycerides Cancelled 11/29/20 04:20: WBC 13.0 H, RBC 4.56 L, Hgb 13.2, Hct 42.6, MCV 93.4, MCH 28.9, MCHC 31.0 L, RDW Std Deviation 47.2 H, RDW Coeff of Pascale 13.9, Plt Count 262, MPV 10.5, Neut % (Auto) Not Reportable, Absolute Neuts (auto) 11.8 H, Absolute Lymphs (auto) 0.39 L, Total Counted 100, Neutrophils % (Manual) 82 H, Band Neutrophils % 4, Lymphocytes % (Manual) 3 L, Monocytes % (Manual) 4, Eosinophils % (Manual) 2, Metamyelocytes % 4 H, Myelocytes % 1 H, Nucleated RBCs/100 WBC 1, Differential Comment MANUAL DIFF, Diff Path Review May , Platelet Estimate ADEQUATE, RBC Morphology NORM C+C 11/29/20 04:20: Sodium 143, Potassium 4.3, Chloride 108 H, Carbon Dioxide 30.0, Anion Gap 5, BUN 36 H, Creatinine 0.71, Estim Creat Clear Calc 113.85, Est GFR (MDRD) Af Amer 143, Est GFR (MDRD) Non-Af 118, BUN/Creatinine Ratio 50.8 H, Glucose 148 H, Calcium 8.4 L Micro: Microbiology 11/22/20 07:20 Sputum, Induced/Lukens Gram Stain - Final 11/22/20 07:20 Sputum, Induced/Lukens Respiratory Culture - Final Streptococcus pneumoniae 11/19/20 15:37 Nasal Secretion SARS-CoV-2 Antigen (Rapid) - Final SARS-CoV-2 (COVID 19) ABG Data ABG results: ABG 11/28/20 11/29/20 19:59 04:31 Specimen Type ART ART Sample Site R Radial L Radial pH 7.43 7.44 Bicarbonate Actual 27.7 H 27.2 H Total CO2 29 28 Base Excess 3 H 3 H O2 Saturation 94 L 92 L O2 % 95 95 ABG pCO2 41.4 40.5 ABG pO2 67 L 63 L Sean Test N/A N/A Respiration Rate 12 O2 Delivery Device Adult Vent Adult Vent Vent Mode BiLevel BiLevel Clinical Comments phigh26 thigh4.5 Physical Exam Narrative Physical exam General: Sedated, unresponsive. HEENT: Atraumatic, PERRLA, EOMI, Normocephalic Oral: ET and OG tube. Neck: Supple, No JVD, Negative Carotid Bruits Lungs: On vent support. APRV. Cardiovascular: Sinus tachycardia: Low 100s normal S1, Normal S2, No murmurs Abdomen: Bowel Sounds Present, Soft, Non Tender. : Meek catheter. Dark urine. No renal angle tenderness. Extremities: Mild bilateral ankle edema, Capillary Refill Less than 3 Seconds Skin: No rashes, No breakdown Musculoskeletal: No Tenderness to Palpation of Joints or Extremities Neurological: Cranial nerves II-XII grossly intact, detail unobtainable on sedative Psych/Mental Status: Sedated Assessment & Plan Assessment/Plan (1) COVID-19: (2) Acute respiratory failure with hypoxia: PLAN: This 65-year-old gentleman admitted with acute hypoxic respiratory failure secondary to COVID-19 and pneumococcal pneumonia 1. Acute hypoxic respiratory failure secondary to COVID-19 bilateral pneumonia, and pneumococcal pneumonia: Patient is being intubated on 11/21 could not tolerate BiPAP. Seroquel for agitation. On IV ceftriaxone for pneumococcal pneumonia. Patient on APRV mode being managed by fleet service clerk. CTA was negative for PE. Patient has elevated transaminases. Leukocytosis improving 11/29: Pneumomediastinum: Patient is still has fever. Intermittent Lasix for positive fluid balance. Patient completed course of remdesivir and Decadron. On IV ceftriaxone and other medications as mentioned above. Patient hospital course has been complicated with pneumomediastinum and continued to be followed for enlargement of pneumothoraces and management service 2. Acute kidney injury due to prerenal: Creatinine improved with IV fluid. Monitor intake and output. Patient has Meek catheter 3. Other comorbidities include hypertension, dyslipidemia and obesity: BMI 31.9 kg/m?. Continue monitoring blood pressure. On Norvasc. 3. BPH Continue with finasteride and tamsulosin 4. Skin hypersensitivity and neuropathy with anxiety: On amitriptyline and quetiapine. DVT: Lovenox 40 subcu twice daily Charges/Coding Visit Charges Inpatient E&M: 35654 [facility] Hosp L3
--- NOTE | 2020-11-29 13:25 | CASEMGMT ---
SW called daughter, offered support. Daughter expressed being overwhelmed with all that is going on. She has three younger brothers who are all COVID+ so cannot come in to the hospital. SW let daughter know SW is here should she need anything, gave her this SW's number to call today or Saturday when this SW is here. SW let her know on the days this SW is not here she can call the ICU and they will put her in touch with whomever is covering the ICU that day. Daughter states understanding. SW will continue to follow and remains available for support to family. SYLVESTER Martin
--- NOTE | 2020-11-29 13:30 | RAD_ITS ---
STUDY: X-RAY CHEST REASON FOR EXAM: Male, 65 years old. Evaluate for PTX TECHNIQUE: Single AP portable view of the chest. COMPARISON: Comparison is made with prior examination dated 11/28/2020 at 6:05 AM. FINDINGS: An endotracheal tube is in situ with the tip at 4.2 cm proximal to the emma. An oral gastric tube is seen with the tip below the left hemidiaphragm. A right-sided central venous catheter is in situ with the tip at the junction of the superior vena cava and right atrium. EKG electrodes are seen. Stable minimal left apical pneumothorax. Persistent bibasilar infiltrates worse at the left lung base. Normal size heart. Normal mediastinum and say. Normal visualized pulmonary arteries. There is atherosclerotic calcification of the aortic arch with tortuosity. Normal visualized thoracic spine. Normal visualized ribs, clavicles, and shoulders. There is no demonstrated abnormality of the visualized soft tissue structures of the upper abdomen. RAD/Chest 1 View (Portable) IMPRESSION: All the support tubes are in good position. Stable minimal left apical pneumothorax. Stable bilateral pulmonary infiltrates worse at the left lung base. Electronically Signed: Serjio Sultana MD at 13:43 EDT , Service support ,
--- NOTE | 2020-11-29 15:05 | CHAPLAIN ---
Type of Pastoral Visit ___ Initial Visit ___ Follow-up Visit ___ On-call Visit ___ General Patient Visit ___ Spiritual Assessment ___ Family Conference ___ Bereavement ___ Rapid Response ___ Code Blue _x__ Other (describe below) Pastoral Care Referral From ___ Patient _x__ Family ___ Nurse ___ Physician ___ Meat Sales And Storage Manager ___ Online Publisher ___ Other (describe below) Sacrament/Intervention ___ Active listening ___ Anointing ___ Nondenominational ___ Bereavement ___ Communion ___ Christie exploration ___ ___ Life review ___ Prayer ___ Reconciliation ___ Sacrament of Sick ___ Supportive presence ___ Wedding _x__ Other (describe below) Pastoral Comments family requested visit and support; met with daughter Haim during her visit to this patient and her mother who is also a patient; daughter expresses being overwhelmed with all that is happening to her parents and others in her family; daughter is also a working SW in a different agency; Haim has anxiety about making decisions for her parents and the outcome which she states as very critical for her father; Haim has younger brothers that are not able to make decisions or come to see their parents; lots of support given to family; prayers offered
[2020-11-29 16:02] LABS: Pathologist Review Reviewed
[2020-11-29 16:12] LABS: Pathologist Review Reviewed
[2020-11-29] MEDS: amLODIPine 10 MG Tablet PO (19:59)
[2020-11-29] MEDS: Senna/Docusate Sodium 1 Tablet 2 TABLET PO (19:59)
--- NOTE | 2020-11-29 22:15 | NURSING ---
Temp increased to 101.1 cooling blanket started.
--- NOTE | 2020-11-29 23:49 | NURSING ---
Cooling blanket alone was not affective in controling the patients temp at this time, tylenol was given to the patient via OG tube.
[2020-11-30] VITALS: BP 156/94; PULSE 132; PULSE 134; RESP 39; TEMP 39.4; O2SAT 79
--- NOTE | 2020-11-30 00:22 | RAD_ITS ---
STUDY: X-RAY CHEST REASON FOR EXAM: Male, 65 years old. Increased O2 needs TECHNIQUE: Portable, upright, AP chest radiograph COMPARISON: 11 hours earlier FINDINGS: Endotracheal tube, right IJ central catheter, and enteric tube remain. Similar appearance of bilateral lower lung patchy infiltrates. Left pneumothorax not well demonstrated. Normal size heart. Normal mediastinum and say. Normal visualized pulmonary arteries. There is atherosclerotic calcification of the aortic arch with tortuosity. Normal visualized thoracic spine. Normal visualized ribs, clavicles, and shoulders. There is no demonstrated abnormality of the visualized soft tissue structures of the upper abdomen. RAD/Chest 1 View (Portable) IMPRESSION: Similar appearance of bilateral lower lung infiltrates. Electronically Signed: Kyaw Guzman MD at 1:52 EDT Tel , Service support ,
[2020-11-30 00:46] LABS: Allen Test Positive; Base Excess 1 mmol/L (-2 to +2); Bicarbonate 25.2 mmol/L (22-26); Blood Gas Specimen Type ART; FI02 100; Mode BiLevel; O2 Delivery Device Adult Vent; PO2 56 mmHG (75-100); RR 12; SITE R Radial; SO2 89 % (95-99); Total Carbon Dioxide 26 mmol/L; pCO2 38.9 mmHg (35-45); pH 7.42 (7.35-7.45)
--- NOTE | 2020-11-30 00:49 | NURSING ---
[facility] updated on pt's decline in physical condition and plan to withdraw care in the next couple hours. Instructed by [facility] to not withdraw care until they call back within 15 minutes. Awaiting call back.
[2020-11-30 01:00] VITALS: BP 112/66; PULSE 114; RESP 25; TEMP 39.8; O2SAT 81
[2020-11-30] MEDS: Morphine 4 MG/ML Syringe IV (01:45)
[2020-11-30] MEDS: LORazepam 2 MG/ML Syringe 1 MG IV (01:45)
--- NOTE | 2020-11-30 01:47 | NURSING ---
Patient family here at bedside and have decided to withdrawal care at this time. patient extubated at 01:48 by RT and this RN.
--- NOTE | 2020-11-30 02:18 | NURSING ---
Dr Bhakta at the bedside and pronounced patient at 2:18am.
--- NOTE | 2020-11-30 03:04 | CPS ---
Pt extubated per order from Dr. Bhakta.
--- NOTE | 2020-11-30 03:44 | PCM.DEATH ---
Preliminary Cause of Preliminary Cause of Preliminary Cause of : Acute hypoxic respiratory failure secondary to COVID-19 pneumonia Principle Diagnosis Problem List: Active and Suspected Problems (Updated 11/19/20 @ 18:[address] Lizeth Theodore DO) Transaminitis (Acute) Hypokalemia (Acute) RAYNE (acute kidney injury) (Acute) Acute respiratory failure with hypoxia (Acute) COVID-19 (Acute) Hypoxia (Acute) Hospital Course Mr. Peacock is a 65-year-old male who presented on 11/19/2020 with intermittent confusion as well has complaints of shortness of breath. On admission he was found to be positive for COVID-19. He had been unvaccinated secondary to lack of FDA approval of the vaccines. During his hospital course his respiratory status deteriorated, necessitating intubation on 11/21/2020. With his intubation and his sedation, he did have periods of agitation necessitating Seroquel during his stay. His COVID-19 pneumonia was complicated by pneumococcal pneumonia as well as development of pneumomediastinum secondary to the need for high ventilatory pressures. He was treated with antibiotics for his pneumococcal pneumonia as well as Decadron and remdesivir. Unfortunately during the day on 11/29/2020, his respiratory status became tenuous secondary to his pneumomediastinum and increasing FiO2 requirements. An overnight he required 100% FiO2 and was only able to maintain oxygen saturation of 90%. The situation was discussed with both his daughter and his and they elected to withdraw care. He was made DNR CC at the request of his family and comfort medications were provided and he was extubated. He on 11/30/2020 at 0218. Assessment & Plan Assessment/Plan (1) COVID-19: (2) Acute respiratory failure with hypoxia: Visit Charges Inpatient E&M: 10401 [facility] Hosp
[2020-11-30 09:32] LABS: Pathologist Review Reviewed
[2020-11-30 09:41] LABS: Pathologist Review Reviewed
== END 2020-11-30 02:18 | DRG 207 ==
LOC: ED 16:41 → MS3 17:22 → ICU 11-20 13:27
PROVIDERS: Family Medicine; Hospitalist; Internal Medicine Critical Care Medicine; Admitting Provider Internal Medicine; Emergency Provider Emergency Medicine; PCP Family Medicine; Visit Provider Internal Medicine
DX: U07.1 COVID-19 (principal); J12.82 Pneumonia due to coronavirus disease 2019; J96.01 Acute respiratory failure with hypoxia; J13 Pneumonia due to Streptococcus pneumoniae; N17.9 Acute kidney failure, unspecified; J98.2 Interstitial emphysema; I10 Essential (primary) hypertension; E78.5 Hyperlipidemia, unspecified; E86.0 Dehydration; E87.6 Hypokalemia; R74.01 Elevation of levels of liver transaminase levels; R73.9 Hyperglycemia, unspecified; G62.9 Polyneuropathy, unspecified; M19.90 Unspecified osteoarthritis, unspecified site; G89.29 Other chronic pain; F41.9 Anxiety disorder, unspecified; N40.0 Benign prostatic hyperplasia without lower urinary tract symptoms; E66.9 Obesity, unspecified; Z68.31 Body mass index [BMI] 31.0-31.9, adult
CPT/HCPCS: 31500; 31720; 36415; 36600; 70450; 71045; 71275; 74018; 80048; 80053; 80076; 82550; 82803; 82962; 83735; 84100; 84443; 84478; 85025; 85379; 85610; 85730; 87070; 87077; 87205; 87426; 93005; 94002; 94003; 94660; 97110; 97162; 97165; 97530; 97535; 97802; 99251; 99285; J7030; J7050; J7120; Q9967; A4216; C1751; G0463; J0330; J1940; J3010